=== PATIENT | female | born 1935 | race Caucasian/White ===

== ENCOUNTER 2019-02-19 14:24 | Emergency (ER) | payer OTHER, MEDICARE ==
[~2019-02-19] VITALS: Ht 157.5 cm; Wt 63.5 kg
[2019-02-19] MEDS ORDERED: LISINOPRIL20 MG PO (14:54)
[2019-02-19] MEDS ORDERED: RESTASIS1 DROP OD (14:54)
[2019-02-19] MEDS ORDERED: LEVOTHYROXINE100 MCG PO (14:54)
[2019-02-19] MEDS ORDERED: SIMVASTATIN40 MG PO (14:55)
[2019-02-19] MEDS ORDERED: DIGITEK125 MCG PO (14:55)
[2019-02-19] MEDS ORDERED: TRAVATAN Z5 ML (14:55)
== END 2019-02-19 16:10 | disposition home or self-care (01) ==
LOC: ED 14:24
DX: S67.193A Crushing injury of left middle finger, initial encounter (principal); S67.195A Crushing injury of left ring finger, initial encounter; W23.0XXA Caught, crushed, jammed, or pinched between moving objects, initial encounter; I10 Essential (primary) hypertension; Z85.3 Personal history of malignant neoplasm of breast; E78.5 Hyperlipidemia, unspecified; Z88.8 Allergy status to other drugs, medicaments and biological substances; Z79.899 Other long term (current) drug therapy
CPT/HCPCS: 73130; 99283

== ENCOUNTER → 2020-03-20 | Emergency (ER) | payer MEDICARE, OTHER ==
[~2020-03-20] VITALS: Ht 157.5 cm; Wt 63.5 kg
[~2020-03-20] MED LIST: DIGITEK125 MCG PO; LEVOTHYROXINE100 MCG PO; LISINOPRIL20 MG PO; RESTASIS1 DROP OD; SIMVASTATIN40 MG PO; TRAVATAN Z5 ML
--- OUTSIDE RECORDS SUMMARY | ~2020-03-20 | XMS | Encounter Summary ---
Demographics + + + | Address | [address] | | | [place] [address] | + + + | Home Phone | | + + + | Preferred Language | Unknown | + + + | Marital Status | | + + + | Nondenominational Affiliation | 1073 | + + + | Race | White | + + + | Ethnic Group | Not or | + + + Author + + + | Author | [facility] | | | and [place] | + + + | Organization | [facility] | | | and [place] | + + + | Address | Unknown | + + + | Phone | Unavailable | + + + Support + + +---------+ + | Name | Relationship | Address | Phone | + + +---------+ + | Bhavana Ulloa | ECON | Unknown | | + + +---------+ + Care Team Providers + +------+ + | Care Professor Of Communication Arts Name | Role | Phone | + +------+ + PCP | Unavailable | + +------+ + Encounter Details +--------+ + + + + | Date | Type | Department | Care Team | Description | +--------+ + + + + | 04/15/ | Hospital | [facility] | | | | 1996 - | Encounter | MED CTR CANCER | | | | | | CENTER [facility] | | | | 05/28/ | | [place] | | | | 1996 | | [address] | | | | | | [phone] | | | +--------+ + + + + Social History + +-------+ +--------+------+ | Tobacco Use | Types | Packs/Day | Years | Date | | | | | Used | | + +-------+ +--------+------+ | Never Assessed | | | | | + +-------+ +--------+------+ + + + | Sex Assigned at | Date Recorded | | | | + + + | Not on file | | + + + documented as of this encounter Plan of Treatment Not on filedocumented as of this encounter Visit Diagnoses Not on filedocumented in this encounter"
--- OUTSIDE RECORDS SUMMARY | ~2020-03-20 | XMS | Encounter Summary ---
Demographics + + + | Address | [address] | | | [place] [address] | + + + | Home Phone | | + + + | Preferred Language | Unknown | + + + | Marital Status | | + + + | Pentecostalism Affiliation | 1073 | + + + | Race | White | + + + | Ethnic Group | Not or | + + + Author + + + | Author | [facility] | | | and [place] | + + + | Organization | [facility] | | | and [...] Team Providers + +------+ + | Care Prop Making Supervisor Name | Role | Phone | + +------+ + | Froylan Godinez MD | PCP | | + +------+ + Encounter Details +--------+ + + + + | Date | Type | Department | Care Team | Description | +--------+ + + + + | 05/07/ | Hospital | [facility] | Fred Oden | Back pain | | 2011 - | Encounter | MED CTR XRAY [address] | [address] | | | | | [place] | [address] [place] | | | 05/09/ | | [place] [address] | [address] | | | 2011 | | [phone] | | | +--------+ + + + + Social History + +-------+ +--------+------+ | Tobacco Use | Types | Packs/Day | Years | Date | | | | | Used | | + +-------+ +--------+------+ | Never Smoker | | | | | + +-------+ +--------+------+ + +---+---+---+ | Smokeless Tobacco: | | | | | Never Used | | | | + +---+---+---+ + + +---------+ + | Alcohol Use | Drinks/Week | oz/Week | Comments | + + +---------+ + | Yes | | | Rarely | + + +---------+ + + + + | Sex Assigned at | Date Recorded | | | | + + + | Not on file | | + + + documented as of this encounter Medications at Time of Discharge + + + +---------+--------+ + | Medication | Sig | Dispensed | Refills | Start | End Date | | | | | | Date | | + + + +---------+--------+ + | | Place 1 drop into | | 0 | | | | brimonidine-timolol | the right eye 2 | | | | | | (COMBIGAN) 0.2-0.5% | times daily. | | | | | | ophthalmic solution | | | | | | + + + +---------+--------+ + | Cholecalciferol | Take 2,000 Units by | | 0 | | | | (VITAMIN D3) 2000 | mouth every morning. | | | | | | UNITS CAPS | | | | | | + + + +---------+--------+ + | Cinnamon 500 MG | Take 1,000 mg by | | 0 | | | | CAPS | mouth every morning. | | | | | | | | | | | | + + + +---------+--------+ + | Levothyroxine | Take 100 mcg by | | 0 | | | | Sodium 112 MCG CAPS | mouth every morning. | | | | 0 | + + + +---------+--------+ + | omeprazole | Take 20 mg by mouth | | 0 | | | | (PRILOSEC) 20 mg | every morning | | | | | | capsule | (before breakfast). | | | | | | | | | | | | + + + +---------+--------+ + | potassium chloride | Take 10 mEq by mouth | | 0 | | | | (KLOR-CON 10) 10 | Daily. | | | | 0 | | MEQ CR tablet | | | | | | + + + +---------+--------+ + | simvastatin | Take 40 mg by mouth | | 0 | | | | (ZOCOR) 40 mg tablet | nightly. | | | | | + + + +---------+--------+ + | | Take 1 tablet by | | 0 | | | | triamterene-hydrochl | mouth Daily. | | | | 0 | | orothiazide | | | | | | | (MAXZIDE-25) 37.5-25 | | | | | | | mg per tablet | | | | | | + + + +---------+--------+ + documented as of this encounter Plan of Treatment Not on filedocumented as of this encounter Procedures + +--------+ + + + | Procedure Name | Priori | Date/Time | Associated Diagnosis | Comments | | | ty | | | | + +--------+ + + + | XR LUMBAR SPINE 2 OR | Routin | 05/07/2012 | Back pain | Results for this | | 3 VW | e | 2:11 PM | | procedure are in the | | | | PST | | results section. | + +--------+ + + + documented in this encounter Results XR Lumbar Spine 2 or 3 Vw (05/07/2012 2:11 PM PST) + + | Specimen | + + | | + + + + + | Narrative | Performed At | + + + | [facility] | [facility] | | Department [address] [place] [address] | [facility] | | [ rep [address]] [ rep [facility] | | [facility]] Signed | - IMAGING | | | | | Patient Name: CATHIE SORENSON Physician: | | | : 1935 Age: 76 Sex: F Unit #: [id number] | | | Exam Date: 05/07/12 Location: [facility] | | | Report #: [id number] Page: | | | %(RAD)RES..mtdd.print.filter("pg") of %(RAD) | | | RES..mtdd.print.filter("tpg") | | | | | | Accession Number: [id number] | | | THREE VIEWS LUMBAR SPINE, 05/07/2012 CLINICAL HISTORY: | | | LOW BACK PAIN. COMPARISON: Lumbar MRI 04/19/2012. | | | FINDINGS: Lateral views of the lumbar spine in | | | neutral, flexed and extended positions are provided. The most | | | inferior lumbar-type vertebra is again designated L5. Diffuse | | | osteopenia is suggested. Lumbar vertebral height is maintained, | | | without evident fracture or conclusive spondylolysis. Mild to | | | moderate disk space narrowing is present at L5-S1 and there is | | | prominent vertebral spondylosis at L2- 3. Multilevel facet | | | hypertrophy is present. Mild anterolisthesis at L3-4 persists with | | | active flexion and extension. No other spondylolisthesis is | | | evident. A small, rounded calcific density projecting over the | | | iliac wings is nonspecific and may reflect a calcified node or | | | diverticulum or alternatively, a bone island. There is scattered | | | abdominal aortic calcification. IMPRESSION: 1. | | | MULTILEVEL SPONDYLOSIS AND MILD SPONDYLOLISTHESIS AT L3-4 | | | DESCRIBED. Dictated Date/Time: 05/07/2012 14:11 | | | Transcribed Date/Time: 05/07/2012 15:18 Pharmacy District Manager: | | | <<Signature on File>> | | | Jose Swenson | | | MD Izaiah05/08/12 [id number] <Electronically signed by Jose Bliss MD> | | | Jose Bliss MD 05/07/12 1411 Pharmacy District Manager: | | | [email or web address]/13/12 2908 [address] Leach | | | | | + + + + + + + + | Performing | Address | City/State/Zipcode | Phone Number | | Organization | | | | + + + + + | [facility] [address] | [address] | [place] | [phone] | | [facility] | | [address] | | | - IMAGING | | | | + + + + + documented in this encounter Visit Diagnoses + + | Diagnosis | + + | Back pain Backache, unspecified | + + documented in this encounter
--- OUTSIDE RECORDS SUMMARY | ~2020-03-20 | XMS | Encounter Summary ---
Demographics + + + | Address | [address] | | | [place] [address] | + + + | Home Phone | | + + + | Preferred Language | Unknown | + + + | Marital Status | | + + + | Orthodoxy Affiliation | 1073 | + + + | Race | White | + + + | Ethnic Group | Not or | + + + Author + + + | Author | [facility] | | | and [place] | + + + | Organization | [facility] | | | and [place] | + + + | Address | Unknown | + + + | Phone | Unavailable | + + + Support + + +---------+ + | Name | Relationship | Address | Phone | + + +---------+ + | Bhavana Good Ulloa | ECON | Unknown | | + + +---------+ + Care Team Providers + +------+ + | Care Fructose Loader Name | Role | Phone | + +------+ + | Froylan Godinez MD | PCP | | + +------+ + Encounter Details +--------+ + + + + | Date | Type | Department | Care Team | Description | +--------+ + + + + | 12/29/ | Hospital | [facility] | Scott Freeman MD | Back pain, | | 2015 | Encounter | MED CTR XRAY [address] | [address] | unspecified location | | | | [address] | [place] [address] | | | | | [place] [address] | [phone] | | | | | [phone] | | | +--------+ + + + [...] + + +---------+ + | Yes | 0 Standard drinks | 0.0 | Rarely | | | or equivalent | | | + + +---------+ + + + + | Sex Assigned at | Date Recorded | | | | + + + | Not on file | | + + + documented as of this encounter Medications at Time of Discharge + + + +---------+ + + | Medication | Sig | Dispensed | Refills | Start | End Date | | | | | | Date | | + + + +---------+ + + | aspirin 325 mg | Take 325 mg by mouth | | 0 | | | | tablet | Daily. | | | | | + + + +---------+ + + | | Place 1 drop into | | 0 | | | | brimonidine-timolol | the right eye 2 | | | | | | (COMBIGAN) 0.2-0.5% | times daily. | | | | | | ophthalmic solution | | | | | | + + + +---------+ + + | Calcium | Take 1 tablet by | | 0 | | | | Carbonate-Vitamin D | mouth Once a week. | | | | 0 | | (CALTRATE 600+D PO) | | | | | | + + + +---------+ + + | Cholecalciferol | Take 2,000 Units by | | 0 | | | | (VITAMIN D3) 2000 | mouth every morning. | | | | | | UNITS CAPS | | | | | | + + + +---------+ + + | Cinnamon 500 MG | Take 1,000 mg by | | 0 | | | | CAPS | mouth every morning. | | | | | | | | | | | | + + + +---------+ + + | digoxin (LANOXIN) | Take 125 mcg by | | 0 | | | | 125 mcg tablet | mouth Daily. | | | | | + + + +---------+ + + | | Take 1 tablet by | | 0 | | | | HYDROcodone-acetamin | mouth every 6 hours | | | | 0 | | ophen (NORCO) 5-325 | as needed for Pain. | | | | | | mg per tablet | | | | | | + + + +---------+ + + | Levothyroxine | Take 100 mcg by | | 0 | | | | Sodium 112 MCG CAPS | mouth every morning. | | | | 0 | + + + +---------+ + + | omeprazole | Take 20 mg by mouth | | 0 | | | | (PRILOSEC) 20 mg | every morning | | | | | | capsule | (before breakfast). | | | | | | | | | | | | + + + +---------+ + + | oxyCODONE | Take 0.5-1 tablets | 15 | 0 | 11/25/19 | | | (ROXICODONE) 5 mg | by mouth every 4 | tablet | | 15 | 0 | | tablet | hours as needed for | | | | | | | Pain. | | | | | + + + +---------+ + + | potassium chloride | Take 10 mEq by mouth | | 0 | | | | (KLOR-CON 10) 10 | Daily. | | | | 0 | | MEQ CR tablet | | | | | | + + + +---------+ + + | simvastatin | Take 40 mg by mouth | | 0 | | | | (ZOCOR) 40 mg tablet | nightly. | | | | | + + + +---------+ + + | travoprost | Place 1 drop into | | 0 | | | | (TRAVATAN) 0.004% | the right eye | | | | | | ophthalmic solution | nightly. | | | | | + + + +---------+ + + | | Take 1 tablet by | | 0 | | | | triamterene-hydrochl | mouth Daily. | | | | 0 | | orothiazide | | | | | | | (MAXZIDE-25) 37.5-25 | | | | | | | mg per tablet | | | | | | + + + +---------+ + + documented as of this encounter Plan of Treatment Not on filedocumented as of this encounter Procedures + +--------+ + + + | Procedure Name | Priori | Date/Time | Associated Diagnosis | Comments | | | ty | | | | + +--------+ + + + | XR LUMBAR SPINE 4 + | Routin | 12/29/2014 | Back pain, | Results for this | | VW | e | 9:28 AM | unspecified location | procedure are in the | | | | PDT | | results section. | + +--------+ + + + documented in this encounter Results XR Lumbar Spine 4 + Vw (12/29/2014 9:28 AM PDT) + + | Specimen | + + | | + + + + + | Narrative | Performed At | + + + | XR LUMBAR SPINE 4 + VW. 12/29/2014 9:27 AM HISTORY: Back pain . | [facility] | | COMPARISON: MRI lumbar spine 10/07/2014 and x-ray lumbar spine | [facility] | | 09/23/2014 FINDINGS: Five lumbar type vertebral bodies. Mild | MEDICAL [facility]ENTER | | broad-based dextroconvex curvature of the lumbar spine, with slight | - IMAGING | | rotatory component. On the upright neutral view, there is | | | anterolisthesis of L3 on L4 that does not substantially change on | | | flexion or extension views. There is diffuse degenerative disc | | | disease, with severe loss of disc height at L5-S1, which appears to | | | expand somewhat on the extension view. Moderate decrease in disc | | | height at L3-4 and L2-3, with posterior loss of disc height at L1-2. | | | Vertebral body heights are maintained. Facet degenerative | | | hypertrophy, greater in the lower lumbar spine. Calcification of the | | | aorta and branching vessels. IMPRESSION - Diffuse degenerative | | | disc disease and spondylotic change. Anterolisthesis of L3 on L4. | | | Dictated and Signed by: Jonathan Gillis MD Electronically | | | signed: 12/29/2014 12:02 PM | | + + + + + | Procedure Note | + + | Je, Rad Results In - 12/29/2014 12:05 PM PDT XR LUMBAR SPINE 4 + VW. 12/29/2014 9:27 | | AMHISTORY: Back pain . COMPARISON: MRI lumbar spine 10/07/2014 and x-ray lumbar spine | | 09/23/2014FINDINGS:Five lumbar type vertebral bodies. Mild broad-based dextroconvex | | curvature ofthe lumbar spine, with slight rotatory component.On the upright neutral | | view, there is anterolisthesis of L3 on L4 that does notsubstantially change on flexion | | or extension views.There is diffuse degenerative disc disease, with severe loss of disc | | height atL5-S1, which appears to expand somewhat on the extension view. | | Moderatedecrease in disc height at L3-4 and L2-3, with posterior loss of disc height | | atL1-2. Vertebral body heights are maintained.Facet degenerative hypertrophy, greater | | in the lower lumbar spine.Calcification of the aorta and branching vessels.IMPRESSION | | -Diffuse degenerative disc disease and spondylotic change. Anterolisthesis of L3on | | L4.Dictated and Signed by: Jonathan Gillis MD Electronically signed: 12/29/2014 12:02 PM | |L5-S1, which appears to expand somewhat on the extension view. Moderate | |decrease in disc height at L3-4 and L2-3, with posterior loss of disc height at | |L1-2. Vertebral body heights are maintained. | |Facet degenerative hypertrophy, greater in the lower lumbar spine. | |Calcification of the aorta and branching vessels. | | | | | |IMPRESSION - | |Diffuse degenerative disc disease and spondylotic change. Anterolisthesis of L3 | |on L4. | | | |Dictated and Signed by: Jonathan Gillis MD | | Electronically signed: 12/29/2014 12:02 PM | + + + + + + + | Performing | Address | City/State/[facility] | Phone Number | | Organization | | | | + + + + + | [address] | [address] | [place] | [phone] | | [facility] | | [address] | | | - IMAGING | | | | + + + + + documented in this encounter Visit Diagnoses + + | Diagnosis | + + | Back pain, unspecified location | + + documented in this encounter"
--- OUTSIDE RECORDS SUMMARY | ~2020-03-20 | XMS | Encounter Summary ---
Demographics + + + | Address | [address] | | | [place] [address] | + + + | Home Phone | | + + + | Preferred Language | Unknown | + + + | Marital Status | | + + + | Taoist Affiliation | 1073 | + + + | Race | White | + + + | Ethnic Group | Not or | + + + Author + + + | Author | [facility] | | | and [place] | + + + | Organization | [facility] | | | [...] Team Providers + +------+ + | Care Transportation Solutions Manager Name | Role | Phone | + +------+ + PCP | Unavailable | + +------+ + Encounter Details +--------+ + + + + | Date | Type | Department | Care Team | Description | +--------+ + + + + | 04/22/ | Hospital | [facility] | | | | 2001 - | Encounter | MED CTR CANCER | | | | | | CENTER [facility] | | | | 06/20/ | | [place] | | | | 2001 | | [address] | | | | | | [phone] | | | +--------+ + + + [...]
--- OUTSIDE RECORDS SUMMARY | ~2020-03-20 | XMS | Encounter Summary ---
Demographics + + + | Address | [address] | | | [place] [address] | + + + | Home Phone | | + + + | Preferred Language | Unknown | + + + | Marital Status | | + + + | Rastafarian Affiliation | 1073 | + + + | Race | White | + + + | Ethnic Group | Not or | + + + Author + + + | Author | [facility] | | | and [place] | + + + | Organization | [facility] | | | [...] Team Providers + +------+ + | Care Transformer Mechanic Name | Role | Phone | + +------+ + PCP | Unavailable | + +------+ + Encounter Details +--------+ + + + + | Date | Type | Department | Care Team | Description | +--------+ + + + + | 10/14/ | Hospital | [facility] | | | | 1997 - | Encounter | MED CTR CANCER | | | | | | CENTER [facility] | | | | 06/24/ | | [place] | | | | 1997 | | [address] | | | | | | [phone] | | | +--------+ + + + [...]
--- OUTSIDE RECORDS SUMMARY | ~2020-03-20 | XMS | Encounter Summary ---
Demographics + + + | Address | [address] | | | [place] [address] | + + + | Home Phone | | + + + | Preferred Language | Unknown | + + + | Marital Status | | + + + | Temple Affiliation | 1073 | + + + | Race | White | + + + | Ethnic Group | Not or | + + + Author + + + | Author | [facility] | | | and [place] | + + + | Organization | [facility] | | | and [place] | + + + | Address | Unknown | + + + | Phone | Unavailable | + + + Support + + +---------+ + | Name | Relationship | Address | Phone | + + +---------+ + | Bhavana Good Artemio | ECON | Unknown | | + + +---------+ + Care Team Providers + +------+ + | Care Brim Greaser Operator Name | Role | Phone | + +------+ + | Froylan Godinez MD | PCP | | + +------+ + Encounter Details +--------+ + + + + | Date | Type | Department | Care Team | Description | +--------+ + + + + | 01/15/ | Imaging | [facility] | Provider, | | | 2020 | Exam | MED CTR EXTERNAL | [address] | | | | | IMAGING [address] | [address] | | | | | [address] [place] | [place] [address] | | | | | [place] [address] | | | | | | [phone] | | | +--------+ + + + [...] | + +--------+ + + + | DEXA BONE DENSITY | Routin | 04/25/2018 | | Results for this | | STUDY JASON LONG FX | e | 12:00 AM | | procedure are in the | | ASSESSMENT | | PDT | | results section. | + +--------+ + + + documented in this encounter Results DEXA Bone Density wo Vert Fx Assmt (04/25/2018 12:00 AM PDT) + + | Specimen | + + | | + + + + + | Narrative | Performed At | + + + | External films for comparison only | [facility] | | | | | No results will be in the chart. | | + + + + +---------+ + + | Performing | Address | City/State/Zipcode | Phone Number | | Organization | | | | + +---------+ + + | [facility] | | | | + +---------+ + + documented in this encounter Visit Diagnoses Not on filedocumented in this encounter"
--- OUTSIDE RECORDS SUMMARY | ~2020-03-20 | XMS | Encounter Summary ---
Demographics + + + | Address | [address] | | | [place] [address] | + + + | Home Phone | | + + + | Preferred Language | Unknown | + + + | Marital Status | | + + + | Uatsdin Affiliation | 1073 | + + + | Race | White | + + + | Ethnic Group | Not or | + + + Author + + + | Author | [facility] | | | and [place] | + + + | Organization | [facility] | | | [...] Team Providers + +------+ + | Care Buffet Attendant Name | Role | Phone | + +------+ + PCP | Unavailable | + +------+ + Encounter Details +--------+ + + + + | Date | Type | Department | Care Team | Description | +--------+ + + + + | 06/25/ | Hospital | [facility] | | | | 1996 - | Encounter | MED CTR CANCER | | | | | | CENTER [facility] | | | | 12/15/ | | [place] | | | | 1996 | | [address] | | | | | | [phone] | | | +--------+ + + + [...]
--- OUTSIDE RECORDS SUMMARY | ~2020-03-20 | XMS | Encounter Summary ---
Demographics + + + | Address | [address] | | | [place] [address] | + + + | Home Phone | | + + + | Preferred Language | Unknown | + + + | Marital Status | | + + + | Hoahaoism Affiliation | [id number] | + + + | Race | White | + + + | Ethnic Group | Not or | + + + Author + + + | Author | [facility] | | | and [place] | + + + | Organization | [facility] | | | [...] Team Providers + +------+ + | Care Blood Bank Business Manager Name | Role | Phone | + +------+ + | Danna Colunga | PCP | | | PA | | | + +------+ + Reason for Visit Service/Procedure (Routine) +--------+--------+ + + + + | Status | Reason | Specialty | Diagnoses / | Referred By | Referred To | | | | | Procedures | Contact | Contact | +--------+--------+ + + + + | Closed | | Radiology | Diagnoses | | [facility] | | | | | Lumbar | [place], | [address] | | | | | radiculopath | Darrel Moon MD | [place], | | | | | y | [address] | [place] | | | | | Procedures | [address] [place] | [address] | | | | | [place] INJECT | [place] | Phone: | | | | | ANES/STEROID | [id number] | [phone] | | | | | FORAMEN | Phone: | Fax: | | | | | LUMBAR/SACRA | [phone] | [phone] | | | | | L W IMG | Fax: | | | | | | GUIDE ,1 | [phone] | | | | | | LEVEL SC | | | | | | | INJECT | | | | | | | ANES/STEROID | | | | | | | FORAMEN | | | | | | | LUMBAR/SACRA | | | | | | | L W IMG | | | | | | | GUIDE ,EA | | | | | | | ADD LEVEL | | | | | | | SC | | | | | | | DEXAMETHASON | | | | | | | E SODIUM | | | | | | | PHOS, 1 MG | | | | | | | LEFT L5/S1 | | | | | | | and left S1 | | | | | | | TFESI | | | +--------+--------+ + + + + Encounter Details +--------+ + + + + | Date | Type | Department | Care Team | Description | +--------+ + + + + | 02/19/ | Hospital | [facility] | Jess Marie | Lumbar radiculopathy | | 2020 | Encounter | MED CTR XRAY [address] | [place] Carrillo [address] | | | | | [address] | [facility] | | | | | [place] [address] | [address] [place] | | | | | [phone] | [id number] | | | | | | | | | | | | Digital DeveloperMalgorzata | | | | | | [place] | | +--------+ + + + + [...] Comments | + + +---------+ + | Not Currently | 0 Standard drinks | 0.0 | Rarely | | | or equivalent | | | + + +---------+ + + + + | Sex Assigned at | Date Recorded | | | | + + + | Not on file | | + + + documented as of this encounter Last Filed Vital Signs + +---------+ + + | Vital Sign | Reading | Time Taken | Comments | + +---------+ + + | Blood Pressure | 176/63 | 02/20/2020 2:00 PM | | | | | PDT | | + +---------+ + + | Pulse | 91 | 02/20/2020 2:00 PM | | | | | PDT | | + +---------+ + + | Temperature | - | - | | + +---------+ + + | Respiratory Rate | - | - | | + +---------+ + + | Oxygen Saturation | - | - | | + +---------+ + + | Inhaled Oxygen | - | - | | | Concentration | | | | + +---------+ + + | Weight | - | - | | + +---------+ + + | Height | - | - | | + +---------+ + + | Body Mass Index | - | - | | + +---------+ + + documented in this encounter Medications at Time of Discharge [...] + + + +---------+ + + | gabapentin | Take 200 mg by mouth | | 0 | 01/14/20 | | | (NEURONTIN) 100 mg | nightly . | | | 20 | | | capsule | | | | | | + + + +---------+ + + | levothyroxine | Take 100 mcg by | | 0 | 12/25/19 | | | (SYNTHROID) 100 mcg | mouth Daily. | | | 20 | | | tablet | | | | | | + + + +---------+ + + | lisinopril | Take 20 mg by mouth | | 0 | | | | (PRINIVIL, ZESTRIL) | Daily. | | | | | | 20 mg tablet | | | | | | + + + +---------+ + + | omeprazole | Take 20 mg by mouth | | 0 | | | | (PRILOSEC) 20 mg | every morning | | | | | | capsule | (before breakfast). | | | | | | | | | | | | + + + +---------+ + + | RESTASIS 0.05 % | instill 1 drop into | | 0 | 01/23/20 | | | ophthalmic emulsion | both eyes twice a | | | 20 | | | | day | | | | | + + [...] | + +--------+ + + + | FL EPIDURAL STEROID | Routin | 02/20/2020 | Lumbar | Results for this | | INJECTION LUMBAR | e | 2:03 PM | radiculopathy | procedure are in the | | TRANSFORAMINAL | | PDT | | results section. | + +--------+ + + + documented in this encounter Results FL MAURICIO Lumbar Sacral Transforaminal (02/20/2020 2:03 PM PDT) + + | Specimen | + + | | + + + + -+ | Narrative | Performed At | + + -+ | 02/20/2020 | [facility] | | Transforaminal Epidural Steroid Injections Diagnosis: Lumbar | | | radiculopathy ICD-10 Code M54.16 Cathie Sorenson presents to the | | | fluoroscopy suite for fluoroscopically-guided left L5-S1 and left S1 | | | transforaminal epidural steroid injections as part of conservative | | | management for chronic pain with lumbar radiculopathy and degenerative | | | disc disease. After informed consent was obtained, the patient lay in | | | the prone position on the fluoroscopy table. The areas were | | | identified under fluoroscopic guidance. The areas were prepped and | | | draped in sterile fashion. A 25-gauge, 1.5-inch needle was inserted | | | into each region and approximately 3 mL of buffered 1% lidocaine was | | | infused. Then, a 22-gauge spinal needle was inserted into the | | | posterior superior transforaminal space at each level and advanced | | | into the epidural space under fluoroscopic guidance. Confirmation into | | | the epidural space was obtained with infusion of approximately 1 mL | | | of Omnipaque contrast which showed epidural flow as well as nerve | | | sheath flow. Then, a combination of 2 mL of 1% lidocaine and 1.5 mL of | | | 10 mg/mL dexamethasone was infused, divided between the two levels. | | | The patient tolerated the procedure well without complications. Pre- | | | and post-procedure blood pressures were stable. The patient was given | | | verbal as well as written follow-up instructions. Prior to the start | | | of the procedure, the following were performed and/or verified, | | | including correct patient identity, correct site/side marked and | | | visible, agreement on the procedure to be done, correct patient | | | positioning and an accurate procedure consent form. Any safety | | | precautions based on clinical history and/or medication use have been | | | addressed. I personally performed the procedure above. Estimated blood | | | loss: MinimalComplications: NoneFindings: As expectedAnesthesia: | | | Local 1% Lidocaine | | |visible, agreement on the procedure to be done, correct patient | | |positioning and an accurate procedure consent form. Any safety precautions | | |based on clinical history and/or medication use have been addressed. I | | |personally performed the procedure above. | | | | | |Estimated blood loss: Minimal | | |Complications: None | | |Findings: As expected | | |Anesthesia: Local 1% Lidocaine | | + + -+ + +---------+ + + | Performing | Address | City/State/Zipcode | Phone Number | | Organization | | | | + +---------+ + + | [facility] | | | | + +---------+ + + documented in this encounter Visit Diagnoses + + | Diagnosis | + + | Lumbar radiculopathy Thoracic or lumbosacral neuritis or radiculitis, unspecified | + + documented in this encounter Administered Medications + +--------+ +-------+------+------+ | Medication Order | MAR | Action | Dose | Rate | Site | | | Action | Date | | | | + +--------+ +-------+------+------+ | dexamethasone (PF) 10 mg/mL | Given | 02/20/20 | 15 mg | | | | injection 15 mg 15 mg, Other, | | 20 2:24 | | | | | ONCE, 02/20/20 at 1400, For 1 | | PM PDT | | | | | dose, EPIDURAL When ordered IV | | | | | | | push: Dilute to 10-20 mL with NS | | | | | | | and give slowly over 1-2 | | | | | | | minutes., | | | | | | + +--------+ +-------+------+------+ +---+---+ | | | +---+---+ + +-------+ +-------+---+---+ | iohexol (OMNIPAQUE 300) 300 | Given | 02/20/20 | 3 mLs | | | | mg/mL injection 3 mL 3 mL, | | 20 2:21 | | | | | EPIDURAL, ONCE, Sun02/20/20 at | | PM PDT | | | | | 1400, For 1 dose | | | | | | + +-------+ +-------+---+---+ +---+---+ | | | +---+---+ + +-------+ +-------+---+---+ | lidocaine (PF) 1% injection 2 | Given | 02/20/20 | 2 mLs | | | | mL 2 mL, Other, ONCE, Fri | | 20 2:25 | | | | | 02/20/20 at 1400, For 1 dose | | PM PDT | | | | + +-------+ +-------+---+---+ +---+---+ | | | +---+---+ + +-------+ +-------+---+---+ | lidocaine buffered 0.9% | Given | 02/20/20 | 6 mLs | | | | injection 6 mL 6 mL, | | 20 2:18 | | | | | Infiltration, ONCE, 02/20/20 | | PM PDT | | | | | at 1400, For 1 dose | | | | | | + +-------+ +-------+---+---+ +---+---+ | | | +---+---+ documented in this encounter"
--- OUTSIDE RECORDS SUMMARY | ~2020-03-20 | XMS | Encounter Summary ---
Demographics + + + | Address | [address] | | | [place] [address] | + + + | Home Phone | | + + + | Preferred Language | Unknown | + + + | Marital Status | | + + + | Synagogue Affiliation | 1073 | + + + | Race | White | + + + | Ethnic Group | Not or | + + + Author + + + | Author | [facility] | | | and [place] | + + + | Organization | [facility] | | | [...] Team Providers + +------+ + | Care Plate Roller Name | Role | Phone | + +------+ + PCP | Unavailable | + +------+ + Encounter Details +--------+ + + + + | Date | Type | Department | Care Team | Description | +--------+ + + + + | 10/16/ | Hospital | [facility] | | | | 2000 - | Encounter | [facility] | | | | | | [facility] [place] [place] | | | | 03/29/ | | [place] | | | | 2000 | | [address] | | | | | | [phone] | | | +--------+ + + + [...]
--- OUTSIDE RECORDS SUMMARY | ~2020-03-20 | XMS | Encounter Summary ---
Demographics + + + | Address | [address] | | | [place] [address] | + + + | Home Phone | | + + + | Preferred Language | Unknown | + + + | Marital Status | | + + + | Confucianist Affiliation | 1073 | + + + | Race | White | + + + | Ethnic Group | Not or | + + + Author + + + | Author | [facility] | | | and [place] | + + + | Organization | [facility] | | | [...] Team Providers + +------+ + | Care Group Exercise Class Instructor Name | Role | Phone | + +------+ + | Froylan Godinez MD | PCP | | + +------+ + Reason for Referral Evaluate & Treat (Urgent) +--------+ + + + + + | Status | Reason | Specialty | Diagnoses / | Referred By | Referred To | | | | | Procedures | Contact | Contact | +--------+ + + + + + | Closed | Specialty | Physical | Diagnoses | Tylor Odennberg, | | | Services | Medicine and | Lumbosacral | Fred | Darrel Moon MD | | | Required | Rehabilitatio | | LILIANA Pino | [address] | | | | n | radiculopath | [address] [place] | | | | | y at [address] | [address]VE | [place], [place] | | | | | Spinal | [place] | [address] Phone: | | | | | stenosis of | [address] | [phone] | | | | | lumbar | Phone: | Fax: | | | | | region | [phone] | [phone] | | | | | Spondylolysi | Fax: | | | | | | s of lumbar | [phone] | | | | | | region | | | +--------+ + + + + + Evaluate & Treat (Routine) +--------+ + + + + + | Status | Reason | Specialty | Diagnoses / | Referred By | Referred To | | | | | Procedures | Contact | Contact | +--------+ + + + + + | Closed | Specialty | Physical | Diagnoses | Akshat, | | | | Services | Therapy | Lumbosacral | Fred | | | | Required | | | LIL[place]NA Pino | | | | | | radiculopath | [address] | | | | | | y at [address] | [address]VE | | | | | | Spinal | [place] | | | | | | stenosis of | [address] | | | | | | lumbar | Phone: | | | | | | region | [phone] | | | | | | Spondylolysi | Fax: | | | | | | s of lumbar | [phone] | | | | | | region | | | +--------+ + + + + + + + | Scheduling Instructions | + + | RX: PHYSICAL THERAPY: EVALUATE AND TREAT; CORE CONDITIONING AND LUMBAR MODALITIES; 3X | | WEEK FOR 6WEEKS; TEACH HOME CORE CONDITIONING PROGRAM; SEND REPORT UPON COMPLETION | + + Diagnostic/Screening (Routine) +--------+ + + + + + | Status | Reason | Specialty | Diagnoses / | Referred By | Referred To | | | | | Procedures | Contact | Contact | +--------+ + + + + + | Closed | Specialty | Radiology | Diagnoses | [place], | | | | Services | | | Fred | | | | Required | | Radiculopath | LIL[place]NA Pino | | | | | | y, cervical | [address] | | | | | | region | AVE | | | | | | Procedures | [place] | | | | | | MRI Cervical | [address] | | | | | | Spine w wo | Phone: | | | | | | Contrast | [phone] | | | | | | | Fax: | | | | | | | [phone] | | +--------+ + + + + + Reason for Visit + + + | Reason | Comments | + + + | Back Pain | | + + + | Other | Leg numbness down both legs, right buttocks | + + + Evaluate & Treat (Routine) +--------+--------+ + + + + | Status | Reason | Specialty | Diagnoses / | Referred By | Referred To | | | | | Procedures | Contact | Contact | +--------+--------+ + + + + | Closed | | Neurosurgery | Diagnoses | Herbert, | Scott Freeman | | | | | Thoracic or | Froylan Zendejas MD [address] | | | | | lumbosacral | MD Sagar [address] | | | | | neuritis or | [address] | [place], [place] | | | | | | [place] | [address] | | | | | radiculitis, | [address] | Phone: | | | | | unspecified | [place], | [phone] | | | | | Lumbago | [place] | Fax: | | | | | Spinal | [address] | [phone] | | | | | stenosis, | Phone: | | | | | | lumbar | [phone] | | | | | | region, | Fax: | | | | | | without | [phone] | | | | | | neurogenic | | | | | | | claudication | | | | | | | Procedures | | | | | | | ME | | | | | | | OFFICE/OUTPT | | | | | | | | | | | | | | VISIT,EST,LE | | | | | | | VL IV | | | +--------+--------+ + + + + Encounter Details +--------+---------+ + + + | Date | Type | Department | Care Team | Description | +--------+---------+ + + + | 05/07/ | Office | [facility] [place] | Fred Oden | Lumbosacral | | 2011 | Visit | NEUROSURGERY [address] | [address] [address] | radiculopathy at [address] | | | | [address] [place], [place] | (Primary Dx); | | | | [place] | [address] | Radiculopathy, | | | | [address] | | cervical region; | | | | [phone] | | Spinal stenosis of | | | | | | lumbar region; | | | | | | Spondylolysis of | | | | | | lumbar region | +--------+---------+ + + + Social History + +-------+ [...] this encounter Last Filed Vital Signs + + + + + | Vital Sign | Reading | Time Taken | Comments | + + + + + | Blood Pressure | 106/71 | 05/07/2012 2:25 PM | | | | | PST | | + + + + + | Pulse | 88 | 05/07/2012 2:25 PM | | | | | PST | | + + + + + | Temperature | - | - | | + + + + + | Respiratory Rate | 16 | 05/07/2012 2:25 PM | | | | | PST | | + + + + + | Oxygen Saturation | - | - | | + + + + + | Inhaled Oxygen | - | - | | | Concentration | | | | + + + + + | Weight | 78 kg (172 lb) | 05/07/2012 2:25 PM | | | | | PST | | + + + + + | Height | 159 cm (5' 2.6") | 05/07/2012 2:25 PM | | | | | PST | | + + + + + | Body Mass Index | 30.86 | 05/07/2012 2:25 PM | | | | | PST | | + + + + + documented in this encounter Patient Instructions Patient Instructions rFed Oden PA-C - 05/07/2012 3:27 PM PSTWe have discussed Physical therapy and steroid injections. I would like to see you in 8 weeks for a follow up . Call if you are doing worse or have progressive symptoms documented in this encounter H&P Notes Fred Oden PA-C - 05/07/2012 3:36 PM PSTFormatting of this note might be differ ent from the original. ALBER Donaldson [address] [place] [address], [address] [place] [address] FAX: NEUROSURGERY HISTORY AND PHYSICAL EXAMINATION CHIEF COMPLAINT: Chief Complaint Patient presents with Back Pain Other Leg numbness down both legs, right buttocks HISTORY OF PRESENT ILLNESS: The patient is a 76 y.o. female with the complaint of back shira n. She was sent for neurosurgical consultation regarding her back pain by Dr. Sagar Godinez. Mrs. Sorenson has had back problems for a long time with radicular symptoms on the right side i ntermittently. Generally though she has altered her activity and has done well without any specific therapy or evaluations in this regard. She is also had ongoing problems with low b ack pain although very tolerable and fairly easily managed. Unfortunately earlier this year in October she slipped and fell in a parking lot at a gas station and injure herself and has si gnificant back discomfort. She went to a chiropractor and had some adjustments and did well with that for quite some time. In November she took a long bus ride and had a recurrence of he r discomfort which was made much worse with prolonged sitting and any prolonged walking. Wh en she returned home she went back to her chiropractor and had some adjustments and did fair ly well again for several weeks. Unfortunately 2 weeks ago she began having increasing symp toms and they are worse than they have been in the recent past. She describes her symptoms as being bilaterally starting in her lower back radiating to the lateral aspect of her legs bilaterally down to her ankles and then crossing over to the med ial aspect of her foot again both of these are bilateral symptoms. She states the discomfor t is slightly worse on the left and she has the sensation of increased lack of feeling on th e left side as well. This discomfort has significant limitations in her daily living activi ties she is unable to do much around the house. Her position of comfort is laying in bed. Her recliner is also fairly helpful for her worst position is walking and standing for any l ength of time we'll also worsen her symptoms. Bending backwards will help her symptoms to a degree if she doesn't go too far. She has not had any bowel or bladder dysfunction she has not noticed any particular weakness in her lower extremities although she admits that she h as had some weakness of her right arm in the deltoid region. She feels like she is otherwise fairly healthy without any significant medical problems. S he has not tried physical therapy or injections. She has used some pain medication which di d not seem to work much better than the aspirin she was taking for her discomfort. PAST MEDICAL HISTORY: Past Medical History Diagnosis Date High blood pressure High cholesterol Acid reflux Arthritis Breast cyst PAST SURGICAL HISTORY: Past Surgical History Procedure Date Ovary surgery December 1965 2/3 of each ovary Breast lump removal 03/1996 and 04/2001 Left Side both times Thyroid surgery 10/1997 Removed Cervical polyp removal 04/2002 Laparoscopy 06/2002 Polyp removal Colonoscopy 01/2006 1 cancer, 1 cell, 2 clear CURRENT MEDICATIONS: No current outpatient prescriptions on file prior to visit. ALLERGIES: Allergies Allergen Reactions Food Other (See Comments) Artifical Sweetner Splenda, stinging mouth, slufffing of the mouth. Diet Drinks SOCIAL HISTORY: The patient reports that she has never smoked. She has never used smokeless tobacco. She r eports that she drinks alcohol. She reports that she does not use illicit drugs. FAMILY HISTORY: Family History Problem Relation Age of Onset Stroke Mother Cancer Maternal Aunt Cancer Maternal Grandmother Cancer Maternal Grandfather REVIEW OF SYSTEMS: GENERALLY: No fever, no night sweats, no anemia, no fatigue, no recent profound weight ch anges. EYES: No eye problems, no use of corrective lenses, no eye injury, no double vision, no bl indness. EARS, NOSE, AND THROAT: No changes in taste or smell, no hearing difficulty, no ringing in the ears, no ear drainage, no dizziness, no voice changes, no difficulty swallowing, no sig nificant snoring, no sleep apnea, no sinus problems, no major dental work. NEUROLOGICALLY: Please see the review of systems discussed above in the history of present illness. PSYCHIATRIC: No depression, no sleep disorders, no anxiety, no bipolar disorder, no psycho tic episodes. CARDIOVASCULAR: No heart attacks, no heart murmur, no heart fluttering, no chest pain, no ankle swelling. LUNG DISEASE: No shortness of breath, no cough, no tuberculosis, no bloody cough, no asth ma, no emphysema/COPD. GASTROINTESTINAL: No bowel disease, no nausea or vomiting, no rectal bleeding, no constipa tion, no stool incontinence, no liver disease, no gallbladder disease, no abdominal pain, no ulcers. KIDNEY DISEASE: No urinary frequency, no painful or difficult urination, no incontinence. ENDOCRINE: No diabetes, no thyroid disease, no osteopenia or osteoporosis, no breast drain age. SKIN: No breast lumps, no skin changes, no rashes, no itches. HEMATOLOGIC/LYMPHATIC: No enlarged lymph nodes, no easy or unusual bleeding, no personal h istory of cancer. RHEUMATOLOGIC: No joint arthritis, no rheumatoid arthritis. PHYSICAL EXAMINATION: Blood pressure 106/71, pulse 88, resp. rate 16, height 1.59 m (5' 2.6"), weight 78.019 kg ( 172 lb). Body mass index is 30.86 kg/(m^2). GENERAL: Cathie Sorenson is in no acute distress with unlabored respirations. The patient d oes not appear uncomfortable throughout the exam today. HEENT: HEAD/FACE: EYES: EARS: NASOPHARNYX: OROPHARNYX: Normocephalic and atraumatic. There are no areas of recent trauma. Normal sclerae without icterus. No drainage or tenderness. Clear without drainage. Clear without erythema. NECK (ANTERIOR): Supple and without palpable masses. CHEST: Clear to ausculation without crackles or wheeze. HEART: Regular rate and rhythm without murmurs. ABDOMEN: Soft, non-tender, non-distended, and without palpable masses. The patient is obe se. SPINE: There is no tenderness in the midline of the cervical or thoracic spine. There is n o major palpable deformity of the spine. The lumbar spine shows there is tenderness in the midline of the L5 levels. To palpation, there is signficant left myofascial tenderness. EXTREMITIES: No cyanosis, clubbing, or edema. Distal pulses are palpable. NEUROLOGICAL EXAM: MENTAL STATUS: The patient is awake, alert, and oriented. She follows simple and complex commands. She speech is fluent, her comprehends speech well, and her repeats well. She has no apparent deficits with short or group home memory. CRANIAL NERVES: II: Acuity is intact. Whitley are full to confrontation. III, IV, : The pupils are reactive. Extraocular movements are intact. No ptosis is note d. V: Facial sensation is intact and symmetric. VII: Facial movements are symmetric. VIII: Hearing is intact bilaterally. IX, X: The uvula and palate move appropriately. XI: Shrug is equal bilaterally. XII: Tongue protrusion is midline. MOTOR EXAM: (5 IS NORMAL) * Indicates pain limited MUSCLE/ MOVEMENT: RIGHT LEFT Deltoids 5 5 Biceps 5 5 Triceps 5 5 Wrist Flexion 5 5 Wrist Extension 5 5 Median Intrinsics 5 5 Ulnar Intrinsics 5 5 Director Of Development Strength 5 5 Hip Flexion 5 5 Hip Extension 5 5 Knee Flexion 5 5 Knee Extension 5 5 Dorsiflexion 5 4 Extensor Hallicus Longus 5 4 Plantarflexion 5 5 SENSORY EXAM: Sensory exam shows no diminished sensation to light touch or pain throughout the upper and lower extremities. REFLEXES: (2 OR 2+ IS NORMAL) REFLEX: RIGHT LEFT BICEPS 1 1 BRACHIORADIALIS 1 1 TRICEPS 1 1 PATELLAR 3 2+ ACHILLES 1 1 UDMAS'S ABSENT ABSENT PLANTAR DOWNGOING DOWNGOING GAIT: Gait is steady but stiff walking secondary to back discomfort. Heel and toe walking are in tact but her balance is very poor although the strength is there. Straight extensor halluci s longus PERIPHERAL NERVE/MISC: Tinel is negative at the wrists and elbows bilaterally. Phalen is negative. Straight leg raise is negative bilaterally. Dannie's test of the hips is negative bilaterally. RADIOGRAPHIC REVIEW: MRI of her lumbar spine shows spinal stenosis at L3-4-4 5 and L5-S1 moderate to moderately severe she has moderate bilateral neural foraminal narrowing at the L5-S1 region there is mi ld anterolisthesis of L3 she also has multilevel spondylitic changes of her lumbar spine as well. NEUROSURGICAL DIAGNOSES: Encounter Diagnoses Name Primary? 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 She cer tainly has significant discomfort in her low back with pain radiated and bilaterally L5 dist ribution I am also somewhat concerned in that she has weakness of her deltoid on the right arm and gives a history of weakness as well. She has not been evaluated in this regard. This patie nt has not undergone any conservative therapy at this time. I've asked her to undergo physical therapy evaluation and treatment. I've also asked her t o have steroid injections as well. We would like to see her back in approximately 6-8 weeks I've also asked her to undergo MRI of her cervical spine with and without contrast because of her increased patellar reflexes reflexes as well as is deltoid weakness on the right side . ELECTRONICALLY SIGNED BY: ALBER Donaldson, 05/07/2012 15:37 documented in this encounter Miscellaneous Notes Miscellaneous - ONBASE SCAN [facility] - 05/07/2012 12:00 AM PSTElectronically signed by [facility] at 05/10/2012 9:10 AM PSTMiscellaneous - ONBASE SCAN [facility] - 05/07/2012 12:00 AM PSTEle ctronically signed by [facility] at 05/10/2012 9:10 AM PSTdocumented in this encounter Plan of Treatment + +---------+--------+ + + | Name | Type | Priori | Associated Diagnoses | Order Schedule | | | | ty | | | + +---------+--------+ + + | MRI Cervical Spine w | Imaging | Routin | Radiculopathy, | Expected: | | wo Contrast | | e | cervical region | 05/07/2012, Expires: | | | | | | 05/07/2013 | + +---------+--------+ + + + + +--------+ + + | Name | Type | Priori | Associated Diagnoses | Order Schedule | | | | ty | | | + + +--------+ + + | Ambulatory referral | Outpatient | Routin | Lumbosacral | Expected: | | to Physical Therapy | Referral | e | radiculopathy at L5 | 05/07/2012, Expires: | | | | | Spinal stenosis of | 05/07/2013 | | | | | lumbar region | | | | | | Spondylolysis of | | | | | | lumbar region | | + + +--------+ + + | Ambulatory referral | Outpatient | Routin | Lumbosacral | Expected: | | to Physical Medicine | Referral | e | radiculopathy at L5 | 05/07/2012, Expires: | | Rehab | | | Spinal stenosis of | 05/07/2013 | | | | | lumbar region | | | | | | Spondylolysis of | | | | | | lumbar region | | + + +--------+ + + documented as of this encounter Visit Diagnoses + + | Diagnosis | + + | Lumbosacral radiculopathy at L5 - Primary Thoracic or lumbosacral neuritis or | | radiculitis, unspecified | + + | Radiculopathy, cervical region Brachial neuritis or radiculitis nos | + + | Spinal stenosis of lumbar region Spinal stenosis, lumbar region, without neurogenic | | claudication | + + | Spondylolysis of lumbar region Acquired spondylolisthesis | + + documented in this encounter
--- OUTSIDE RECORDS SUMMARY | ~2020-03-20 | XMS | Encounter Summary ---
Demographics + + + | Address | [address] | | | [place] [address] | + + + | Home Phone | | + + + | Preferred Language | Unknown | + + + | Marital Status | | + + + | Spiritism Affiliation | [id number] | + + + [...] Team Providers + +------+ + | Care Mitigation Supervisor Name | Role | Phone | + +------+ + | Froylan Godinez MD | PCP | | + +------+ + Encounter Details +--------+ + + + + | Date | Type | Department | Care Team | Description | +--------+ + + + + | 11/25/ | Orders Only | [facility] | Scarlett Agrawal, | Lumbar radiculopathy | | 2014 | | PHYSIATRY [address] | [employer] | (Primary Dx) | | | | [address] | | | | | | [place] | | | | | | [address] | | | | | | [phone] | | | +--------+ + + + [...] Not on filedocumented as of this encounter Results [place] [facility] Lumbar Transforaminal (12/04/2014 12:27 PM PDT) + + | Specimen | + + | | + + + + + | Narrative | Performed At | + + + | 12/04/2014 Transforaminal Epidural Steroid Injection Diagnosis: | [facility] | | Lumbar radiculopathy ICD-9 Code 724.4 Cathie Sorenson presents | [facility] | | to the fluoroscopy suite for a fluoroscopically-guided right L5-S1 [facility] | | transforaminal epidural steroid injection as part of conservative | - IMAGING | | management for chronic pain with lumbar radiculopathy and | | | degenerative disk disease. After informed consent was obtained, | | | the patient lay in the prone position on the fluoroscopy table. | | | The area was identified under fluoroscopic guidance. The area was | | | prepped and draped in sterile fashion. A 25-gauge, 1.5-inch needle | | | was inserted into this region and approximately 3 mL of buffered 1% | | | lidocaine was infused. Then, a 22-gauge spinal needle was | | | inserted into the posterior superior transforaminal space and | | | advanced into the epidural space under fluoroscopic guidance. | | | Confirmation into the epidural space was obtained with infusion of | | | approximately 1 mL of Omnipaque contrast which showed epidural flow | | | as well as nerve sheath flow. Then, a combination of 1.5 mL of | | | 1% lidocaine and 1.5 mL of 6 mg/mL Celestone was infused. The | | | patient tolerated the procedure well without complications. Pre- and | | | post-procedure blood pressures were stable. The patient was given | | | verbal as well as written follow-up instructions. Prior to the | | | start of the procedure, the following were performed and/or | | | verified, including correct patient identity, correct site/side marked | | | and visible, agreement on the procedure to be done, correct patient | | | positioning and an accurate procedure consent form. Any safety | | | precautions based on clinical history and/or medication use have been | | | addressed. I personally performed the procedure above. | | | Estimated blood loss: Minimal Complications: None Findings: As | | | expected Anesthesia: Local 1% Lidocaine | | + + + + + + + + | Performing | Address | City/State/Zipcode | Phone Number | | Organization | | | | + + + + + | [facility] | [address] | [place] | [phone] | | [facility] | | [address] | | | - IMAGING | | | | + + + + + documented in this encounter Visit Diagnoses + + | Diagnosis | + + | Lumbar radiculopathy - Primary Thoracic or lumbosacral neuritis or radiculitis, | | unspecified | + + documented in this encounter"
--- OUTSIDE RECORDS SUMMARY | ~2020-03-20 | XMS | Encounter Summary ---
Demographics + + + | Address | [address] | | | [place] [address] | + + + | Home Phone | | + + + | Preferred Language | Unknown | + + + | Marital Status | | + + + | Gnosticism Affiliation | 1073 | + + + | Race | White | + + + | Ethnic Group | Not or | + + + Author + + + | Author | [facility] | | | and [place] | + + + | Organization | [facility] | | | [...] Team Providers + +------+ + | Care Physician Recruiter Name | Role | Phone | + +------+ + | Froylan Godinez MD | PCP | | + +------+ + Encounter Details +--------+ + + + + | Date | Type | Department | Care Team | Description | +--------+ + + + + | 11/25/ | Abstract | [facility] [place] | Scott Freeman MD | | | 2015 | | [address]UR[address] | [address] [address] | | | | | [address] | [place] [address] | | | | | [place] | [phone] | | | | | [address] | | | | | | [phone] | | | +--------+ + + + [...]
--- OUTSIDE RECORDS SUMMARY | ~2020-03-20 | XMS | Encounter Summary ---
Demographics + + + | Address | [address] | | | [place] [address] | + + + | Home Phone | | + + + | Preferred Language | Unknown | + + + | Marital Status | | + + + | Jain Affiliation | 1073 | + + + | Race | White | + + + | Ethnic Group | Not or | + + + Author + + + | Author | [facility] | | | and [place] | + + + | Organization | [facility] | | | [...] Team Providers + +------+ + | Care Referral Clerk Name | Role | Phone | + +------+ + PCP | Unavailable | + +------+ + Encounter Details +--------+ + + + + | Date | Type | Department | Care Team | Description | +--------+ + + + + | 10/29/ | Hospital | [facility] | | | | 2002 - | Encounter | [facility] | | | | | | [facility] | | | | 02/19/ | | [place] | | | | 2002 | | [address] | | | | | | [phone] | | | +--------+ + + + [...]
--- OUTSIDE RECORDS SUMMARY | ~2020-03-20 | XMS | Encounter Summary ---
Demographics + + + | Address | [address] | | | [place] [address] | + + + | Home Phone | | + + + | Preferred Language | Unknown | + + + | Marital Status | | + + + | Quaker Affiliation | 1073 | + + + | Race | White | + + + | Ethnic Group | Not or | + + + Author + + + | Author | [facility] | | | and [place] | + + + | Organization | [facility] | | | [...] Team Providers + +------+ + | Care Complaint Investigator Name | Role | Phone | + +------+ + PCP | Unavailable | + +------+ + Encounter Details +--------+ + + + + | Date | Type | Department | Care Team | Description | +--------+ + + + + | 10/12/ | Hospital | [facility] | | | | 1998 - | Encounter | [facility] | | | | | | C[facility] | | | | 06/04/ | | [place] | | | | 1998 | | [address] | | | | | | [phone] | | | +--------+ + + + [...]
--- OUTSIDE RECORDS SUMMARY | ~2020-03-20 | XMS | Encounter Summary ---
Demographics + + + | Address | [address] | | | [place] [address] | + + + | Home Phone | | + + + | Preferred Language | Unknown | + + + | Marital Status | | + + + | Confucianist Affiliation | 1073 | + + + | Race | White | + + + | Ethnic Group | Not or | + + + Author + + + | Author | [facility] | | | and [place] | + + + | Organization | [facility] | | [...] Team Providers + +------+ + | Care Compact Assembler Name | Role | Phone | + +------+ + | Froylan Godinez MD | PCP | | + +------+ + Reason for Referral Evaluate & Treat (Routine) +--------+ + + + + + | Status | Reason | Specialty | Diagnoses / | Referred By | Referred To | | | | | Procedures | Contact | Contact | +--------+ + + + + + | Closed | Specialty | Physical | Diagnoses | Scott Freeman | | | | Services | Therapy | Lumbar | MD [address] | | | | Required | | radiculopath | [address] | | | | | | y Lumbar | [facility], | | | | | | stenosis | [place] [address] | | | | | | Degenerative | Phone: | | | | | | disc | [phone] | | | | | | disease, | Fax: | | | | | | lumbar | [phone] | | | | | | Foraminal | | | | | | | stenosis of | | | | | | | lumbar | | | | | | | region | | | +--------+ + + + + + + + | Scheduling Instructions | + + | [facility] in [place] | + + Reason for Visit + + + | Reason | Comments | + + + | Follow-up | LR Back Pain | + + + Evaluate & Treat (Routine) +--------+--------+ + + + + | Status | Reason | Specialty | Diagnoses / | Referred By | Referred To | | | | | Procedures | Contact | Contact | +--------+--------+ + + + + | Closed | | Neurosurgery | Diagnoses | Herbert, | Scott Freeman | | | | | Valeri | Froylan | MD [address] | | | | | Procedures | MD Sagar [address] | | | | | [place] OFFICE | [address] | [place] | | | | | CONSULTATION | [place] | [address] | | | | | NEW/ESTAB | [address] | Phone: | | | | | PATIENT [address] | [place], | [phone] | | | | | MIN Req MRI | [place] | Fax: | | | | | 10/01/14 | [address] | [phone] | | | | | | Phone: | | | | | | | [phone] | | | | | | | Fax: | | | | | | | [phone] | | +--------+--------+ + + + + Encounter Details +--------+---------+ + + + | Date | Type | Department | Care Team | Description | +--------+---------+ + + + | 12/29/ | Office | [facility] | Scott Freeman MD | Lumbar radiculopathy | | 2015 | Visit | NEUROSURGERY [address] | [address] | (Primary Dx); | | | | [address] | [place] [address] | Lumbar stenosis; | | | | [place], [place] | [phone] | Degenerative disc | | | | [address] | | disease, lumbar; | | | | [phone] | | Foraminal stenosis | | | | | | of lumbar region | +--------+---------+ + + + [...] + + + | Blood Pressure | 134/66 | 12/29/2014 11:09 AM | | | | | PDT | | + + + + + | Pulse | 62 | 12/29/2014 11:09 AM | | | | | PDT | | + + + + + | Temperature | - | - | | + + + + + | Respiratory Rate | 16 | 12/29/2014 11:09 AM | | | | | PDT | | + + + + + | Oxygen Saturation | - | - | | + + + + + | Inhaled Oxygen | - | - | | | Concentration | | | | + + + + + | Weight | 74.4 kg (164 lb) | 12/29/2014 11:09 AM | | | | | PDT | | + + + + + | Height | 157.5 cm (5' 2") | 12/29/2014 11:09 AM | | | | | PDT | | + + + + + | Body Mass Index | 30 | 12/29/2014 11:09 AM | | | | | PDT | | + + + + + documented in this encounter Progress Notes Scott Freeman MD - 12/29/2014 11:15 AM PDTFormatting of this note might be different from amy moreno. Scott Freeman MD [address] [place] [address], [address] [place], [place] [id number] FAX: NEUROSURGERY FOLLOW-UP CHIEF COMPLAINT: Chief Complaint Patient presents with Follow-up LR Back Pain HISTORY OF PRESENT ILLNESS: The patient is a 79 y.o. female with the complaint of back and leg pain. She was seen previously in 2012 here for similar problems. Her pain increased b ack in August and was very severe. She had a new MRI and x-rays and was arranged to have an injection. The pain is 75 % better after that. She still has pain down her right buttock a nd in her low back but it is now dull instead of sharp like it was. PAST MEDICAL HISTORY: Past Medical History Diagnosis Date High blood pressure High cholesterol Acid reflux Arthritis Breast cyst Gout Thyroid disease Thyroidectomy Cancer (HCC) Osteoarthritis PAST SURGICAL HISTORY: Past Surgical History Procedure Laterality Date Ovary surgery December 1965 2/3 of each ovary Breast lump removal 03/1996 and 04/2001 Left Side both times Thyroid surgery 10/1997 Removed Cervical polyp removal 04/2002 Laparoscopy 06/2002 Polyp removal Colonoscopy 01/2006 1 cancer, 1 cell, 2 clear Hysterectomy Appendectomy Eye surgery CURRENT MEDICATIONS: Current Outpatient Prescriptions on File Prior to Visit Medication Sig Dispense Refill aspirin 325 mg tablet Take 325 mg by mouth Daily. brimonidine-timolol (COMBIGAN) 0.2-0.5% ophthalmic solution Place 1 drop into the right eye 2 times daily. Calcium Carbonate-Vitamin D (CALTRATE 600+D PO) Take 1 tablet by mouth Once a week. Cholecalciferol (VITAMIN D3) 2000 UNITS CAPS Take 2,000 Units by mouth every morning. Cinnamon 500 MG CAPS Take 1,000 mg by mouth every morning. digoxin (LANOXIN) 125 mcg tablet Take 125 mcg by mouth Daily. HYDROcodone-acetaminophen (NORCO) 5-325 mg per tablet Take 1 tablet by mouth every 6 ho urs as needed for Pain. Levothyroxine Sodium 112 MCG CAPS Take 100 mcg by mouth every morning. omeprazole (PRILOSEC) 20 mg capsule Take 20 mg by mouth every morning (before breakfast ). oxyCODONE (ROXICODONE) 5 mg tablet Take 0.5-1 tablets by mouth every 4 hours as needed for Pain. 15 tablet 0 potassium chloride (KLOR-CON 10) 10 MEQ CR tablet Take 10 mEq by mouth Daily. simvastatin (ZOCOR) 40 mg tablet Take 40 mg by mouth nightly. travoprost (TRAVATAN) 0.004% ophthalmic solution Place 1 drop into the right eye nightl y. triamterene-hydrochlorothiazide (MAXZIDE-25) 37.5-25 mg per tablet Take 1 tablet by Daily. No current facility-administered medications on file prior to visit. ALLERGIES: Allergies [...] Maternal Grandmother Cancer Maternal Grandfather REVIEW OF SYSTEMS GENERALLY: No fever, no night sweats, no [...] above in the history of present illness. In addition, the patient has Numbness/pain of legs, Awake with numbness/pain, jeanie nge in walk, shaking. PSYCHIATRIC: No depression, no sleep disorders, no [...] no rheumatoid arthritis. PHYSICAL EXAMINATION: Blood pressure 134/66, pulse 62, resp. rate 16, height 1.575 m (5' 2"), weight 74.39 kg (16 4 lb). Body mass index is 29.99 kg/(m^2). GENERAL: Cathie Sorenson is in no acute distress with unlabored respirations. The michael cahnel does not appear uncomfortable throughout the exam today. HEENT: HEAD/FACE: EYES: EARS: NASOPHARNYX: OROPHARNYX: Normocephalic and atraumatic. There are no areas of recent trauma. Normal sclerae without icterus. SPINE: There is no tenderness in the midline of the cervical or thoracic spine. There is n o major palpable deformity of the spine. The lumbar spine shows there is tenderness in the midline of the L5 and S1 levels and off t o the right. To palpation, there is no signficant myofascial tenderness. EXTREMITIES: No cyanosis, clubbing, or edema. Distal pulses are palpable. .NEUROLOGICAL EXAM: MENTAL STATUS: The patient is awake, alert, and oriented. She follows simple and complex commands. She speech is fluent, her comprehends speech well, and her repeats well. She has no apparent deficits with short or long-term memory. MOTOR EXAM: (5 IS NORMAL) * Indicates pain limited MUSCLE/ MOVEMENT: RIGHT LEFT Deltoids 5 5 Biceps 5 5 Triceps 5 5 Wrist Flexion 5 5 Wrist Extension 5 5 Median Intrinsics 5 5 Ulnar Intrinsics 5 5 Supervisor Receiving And Processing Strength 5 5 Hip Flexion 5 5 Hip Extension 5 5 Knee Flexion 5 5 Knee Extension 5 5 Dorsiflexion 5 5 Extensor Hallicus Longus 5 5 Plantarflexion 5 5 SENSORY EXAM: Sensory exam shows slight diminished sensation to light touch over the lateral inferior leg s on both sides. REFLEXES: (2 OR 2+ IS NORMAL) REFLEX: RIGHT LEFT BICEPS 2 2 BRACHIORADIALIS 2 2 TRICEPS 2 2 PATELLAR 2+ 2 ACHILLES 2 2 DUMAS'S ABSENT ABSENT PLANTAR DOWNGOING DOWNGOING GAIT: Gait is steady. RADIOGRAPHIC REVIEW: The patient has an MRI and x-rays that show stenosis and DDD worst at L5-S1. She has right L5-S1 foraminal stenosis. ASSESSMENT: NEUROSURGICAL DIAGNOSES: Encounter Diagnoses Name Primary? Lumbar radiculopathy Yes Lumbar stenosis Degenerative disc disease, lumbar Foraminal stenosis of lumbar region GENERAL DIAGNOSES: Past Medical History Diagnosis Date High blood pressure High cholesterol Acid reflux Arthritis Breast cyst Gout Thyroid disease Thyroidectomy Cancer (HCC) Osteoarthritis PLAN: The patient is improved with an injection. I discussed options to help her improvement fur ther beyond 75% includin. Therapy 2. Injections including a R L5 and R S1 foraminal injection, up to 3 surgeries 3. Surgery She would like to start with the first plan. The other options are available to her and I would be happy to coordinate any of those for her hopefully with a lesser wait if things did indeed worsen. ELECTRONICALLY SIGNED BY: Scott Freeman MD, 12/29/2014 11:58 documented in this encou nter Plan of Treatment + + +--------+ + + | Name | Type | Priori | Associated Diagnoses | Order Schedule | | | | ty | | | + + +--------+ + + | OUTPATIENT PT | Outpatient | Routin | Lumbar | Ordered: 12/29/2014 | | EXTERNAL | Referral | e | radiculopathy | | | | | | Lumbar stenosis | | | | | | Degenerative disc | | | | | | disease, lumbar | | | | | | Foraminal stenosis | | | | | | of lumbar region | | + + +--------+ + + documented as of this encounter Visit Diagnoses + + | Diagnosis | + + | Lumbar radiculopathy - Primary Thoracic or lumbosacral neuritis or radiculitis, | | unspecified | + + | Lumbar stenosis Spinal stenosis, lumbar region, without neurogenic claudication | + + | Degenerative disc disease, lumbar Degeneration of lumbar or lumbosacral | | intervertebral disc | + + | Foraminal stenosis of lumbar region Spinal stenosis, lumbar region, without | | neurogenic claudication | + + documented in this encounter
--- OUTSIDE RECORDS SUMMARY | ~2020-03-20 | XMS | Encounter Summary ---
Demographics + + + | Address | [address] | | | [place] [address] | + + + | Home Phone | | + + + | Preferred Language | Unknown | + + + | Marital Status | | + + + | Hindu Affiliation | 1073 | + + + | Race | White | + + + | Ethnic Group | Not or | + + + Author + + + | Author | [facility] | | | and [place] | + + + | Organization | [facility] | | | [...] Team Providers + +------+ + | Care Road Driver Name | Role | Phone | + +------+ + PCP | Unavailable | + +------+ + Encounter Details +--------+ + + + + | Date | Type | Department | Care Team | Description | +--------+ + + + + | 05/01/ | Hospital | [facility] | | | | 1995 - | Encounter | [facility] | | | | | | CENTER [facility] | | | | 06/24/ | | [place] | | | | 1995 | | [address] | | | | | | [phone] | | | +--------+ + + + [...]
--- OUTSIDE RECORDS SUMMARY | ~2020-03-20 | XMS | Encounter Summary ---
Demographics + + + | Address | [address] | | | [place] [address] | + + + | Home Phone | | + + + | Preferred Language | Unknown | + + + | Marital Status | | + + + | Mosque Affiliation | 1073 | + + + | Race | White | + + + | Ethnic Group | Not or | + + + Author + + + | Author | [facility] | | | and [place] | + + + | Organization | [facility] | | | [...] Team Providers + +------+ + | Care Environmental Compliance Technician Name | Role | Phone | + [...] [facility] | | | | | Thoracic or | [place], | [address] | | | | | lumbosacral | Darrel T MD | [place], | | | | | neuritis or | [address] | [place] | | | | | | [place] | [address] | | | | | radiculitis, | [place], [place] | Phone: | | | | | unspecified | [address] | [phone] | | | | | Procedures | Phone: | Fax: | | | | | IN INJECT | [phone] | [phone] | | | | | ANES/STEROID | Fax: | | | | | | FORAMEN | [phone] | | | | | | LUMBAR/SACRA | | | | | | | L W IMG | | | | | | | GUIDE ,1 | | | | | | | LEVEL IN | | | | | | | TRIAMCINOLON | | | | | | | E ACET INJ | | | | | | | NOS, 10 MG | | | | | | | Right L5-S1 | | | | | | | TFESI-Referr | | | | | | | al from Dr | | | | | | | Yam | | | +--------+--------+ + + + + Encounter Details +--------+ + + + + | Date | Type | Department | Care Team | Description | +--------+ + + + + | 12/04/ | Hospital | [facility] | Darrel Alvarez | Lumbar radiculopathy | | 2015 | Encounter | MED CTR XRAY [address] | T, MD [address] | | | | | [address] [place] | [place], [place] | | | | | [place] [address] | [address] | | | | | [phone] | | | | | | | Human Performance Consultant, [facility] | | | | | | [place] [...] +---------+ + + | Blood Pressure | 177/74 | 12/04/2014 12:30 PM | | | | | PDT | | + +---------+ + + | Pulse | 79 | 12/04/2014 12:30 PM | | | | | PDT [...] | FL EPIDURAL STEROID | Routin | 12/04/2014 | Lumbar | Results for this | | INJECTION LUMBAR | e | 12:27 PM | radiculopathy | procedure are in the | | TRANSFORAMINAL | | PDT | | results section. | + +--------+ + + + documented in this encounter Results [place] MAURICIO Lumbar Transforaminal (12/04/2014 12:27 PM PDT) + + | Specimen | + + | | + + + + + | Narrative | Performed At | + + + | 12/04/2014 Transforaminal Epidural Steroid Injection Diagnosis: | [facility] | | Lumbar radiculopathy ICD-9 Code 724.4 Cathie Sorenson presents | [facility] | | to the fluoroscopy suite for a fluoroscopically-guided right L5-S1 [facility] | | transforaminal epidural steroid injection as [...] ST. | [address] | [place] | [phone] | | [facility] | | [address] | | | - IMAGING | | | | + + + + + documented in this encounter Visit Diagnoses + + | Diagnosis | + + | Lumbar radiculopathy Thoracic or lumbosacral neuritis or radiculitis, unspecified | + + documented in this encounter Administered Medications + +--------+ +------+------+------+ | Medication Order | MAR | Action | Dose | Rate | Site | | | Action | Date | | | | + +--------+ +------+------+------+ | betamethasone (CELESTONE | Given | 12/05/19 | 6 mg | | | | SOLUSPAN) injection 6 mg 6 mg, | | 15 12:28 | | | | | Other, ONCE, 12/04/14 at 1230, | | PM PDT | | | | | For 1 dose, Shake well. Not for | | | | | | | IV use., | | | | | | + +--------+ +------+------+------+ +---+---+ | | | +---+---+ + +-------+ +-------+---+---+ | iohexol (OMNIPAQUE 300) 300 | Given | 12/05/19 | 4 mLs | | | | mg/mL injection 4 mL 4 mL, | | 15 12:25 | | | | | INTRATHECAL, ONCE, 12/04/14 at | | PM PDT | | | | | 1230, For 1 dose | | | | | | + +-------+ +-------+---+---+ +---+---+ | | | +---+---+ + +-------+ +------+---+ + | lidocaine 1% injection 1 mL 1 | Given | 12/05/19 | 1 mL | | Other | | mL, Intradermal, ONCE, Fri | | 15 12:19 | | | (Comment | | 12/04/14 at 1230, For 1 dose | | PM PDT | | | ) | + +-------+ +------+---+ + +---+---+ | | | +---+---+ + +-------+ +------+---+---+ | sodium bicarbonate (NEUT) 4% | Given | 12/05/19 | 1 mL | | | | injection 1 mL 1 mL, | | 15 12:21 | | | | | Intravenous, ONCE, 12/04/14 at | | PM PDT | | | | | 1230, For 1 dose, Use for | | | | | | | addition to other parenteral | | | | | | | solutions., | | | | | | + +-------+ +------+---+---+ +---+---+ | | | +---+---+ documented in this encounter"
--- OUTSIDE RECORDS SUMMARY | ~2020-03-20 | XMS | Encounter Summary ---
Demographics + + + | Address | [address] | | | [place] [address] | + + + | Home Phone | | + + + | Preferred Language | Unknown | + + + | Marital Status | | + + + | Catholic Affiliation | 1073 | + + + | Race | White | + + + | Ethnic Group | Not or | + + + Author + + + | Author | [facility] | | | and [place] | + + + | Organization | [facility] | | | [...] Team Providers + +------+ + | Care Loader Semiconductor Dies Name | Role | Phone | + +------+ + | Froyaln Godinez MD | PCP | | + +------+ + Encounter Details +--------+ + + + + | Date | Type | Department | Care Team | Description | +--------+ + + + + | 04/30/ | Orders Only | [facility] | Fred Oden | Back pain (Primary | | 2011 | | NEUROSURGERY [address] | [address] | Dx) | | | | [address] | [address] [place] | | | | | [place] | [address] | | | | | [address] | | | | | | [phone] | | | +--------+ + + + [...] on filedocumented as of this encounter Results XR Lumbar Spine 2 or 3 Vw (05/07/2012 2:11 PM PST) + + | Specimen | + + | | + + + + + | Narrative | Performed At | + + + | [facility] | CENTER | | Department [address] [place] [address] [facility] | | [ rep [address]] [ rep [facility] | | [facility]] Signed | - IMAGING | | | | | Patient Name: CATHIE SORENSON Physician: | | | : 1935 Age: 76 Sex: F Unit #: [id number] | | | Exam Date: 05/07/12 Location: [facility] | | | Report #: [id number] Page: | | | %(RAD)RES..mtdd.print.filter("pg") of %(RAD) | | | RES..mtdd.print.filter("tpg") | | | | | | Accession Number: [id number] | | | THREE VIEWS LUMBAR SPINE, [...] | | | Transcribed Date/Time: 05/07/2012 15:18 Ornament Setter: | | | <<Signature on File>> | | | Jose Swenson | | | MD Izaiah05/08/12 [id number] <Electronically signed by Jose Bliss MD> | | | Jose Bliss MD 05/07/12 1411 Ornament Setter: | | | SMSA CRANE ACQUISITIONx Psdedxilppwth03/13/12 [address] | | | | | + + + + + + + + | Performing | Address | City/State/Zipcode | Phone Number | | Organization | | | | + + + + + | [address] | [address] | [place] | [phone] | | [facility] | | [address] | | | - IMAGING | | | | + + + + + documented in this encounter Visit Diagnoses + + | Diagnosis | + + | Back pain - Primary Backache, unspecified | + + documented in this encounter
--- OUTSIDE RECORDS SUMMARY | ~2020-03-20 | XMS | Encounter Summary ---
Demographics + + + | Address | [address] | | | [place] [address] | + + + | Home Phone | | + + + | Preferred Language | Unknown | + + + | Marital Status | | + + + | Shinto Affiliation | 1073 | + + + | Race | White | + + + | Ethnic Group | Not or | + + + Author + + + | Author | [facility] | | | and [place] | + + + | Organization | [facility] | | | and [...] Team Providers + +------+ + | Care Label Coder Name | Role | Phone | + +------+ + | Froylan Godinez MD | PCP | | + +------+ + Reason for Visit +--------+--------+ + | Reason | Onset | Comments | | | Date | | +--------+--------+ + | Other | 10/14/ | | | | 2014 | | +--------+--------+ + Encounter Details +--------+ + + + + | Date | Type | Department | Care Team | Description | +--------+ + + + + | 10/14/ | Telephone | [facility] [place] | Fred Oden | Other | | 2014 | | NEUROSURGERY [address] | [address] | | | | | [address] | [address] [place], [place] | | | | | [place], [place] | [id number] | | | | | [address] | | | | | | [phone] | | | +--------+ + + + [...] + + documented as of this encounter Miscellaneous Notes Telephone Encounter - Sapphire Hayden - 10/14/2014 2:29 PM PDTSee referral# [id number] Referral is pending review. Cathie is updated at this time. She verbalized understanding. elephone Encounter - Ivory Alexander - 10/14/2014 10:14 AM PDTPatient called today to ask if Tin had a chance to l taty at the MRI that was completed at [facility] to determine if she would be eligible for a referra l for injection only with Dr. Alvarez. Please advise. documented in this encounter Plan of Treatment Not on filedocumented as of this encounter Visit Diagnoses Not on filedocumented in this encounter"
--- OUTSIDE RECORDS SUMMARY | ~2020-03-20 | XMS | Encounter Summary ---
Demographics + + + | Address | [address] | | | [place] [address] | + + + | Home Phone | | + + + | Preferred Language | Unknown | + + + | Marital Status | | + + + | Cheondoism Affiliation | 1073 | + + + | Race | White | + + + | Ethnic Group | Not or | + + + Author + + + | Author | [facility] | | | and [place] | + + + | Organization | [facility] | | [...] Team Providers + +------+ + | Care Rug Layer Name | Role | Phone | + +------+ + | Danna Colunga | PCP | | | PA | | | + +------+ + Reason for Visit + + + | Reason | Comments | + + + | New Patient | | + + + | Back Pain | | + + + Evaluate & Treat (Routine) + +--------+ + + + + | Status | Reason | Specialty | Diagnoses / | Referred By | Referred To | | | | | Procedures | Contact | Contact | + +--------+ + + + + | Authorized | | Physical | Diagnoses | Keanu, | Antonio, | | | | Medicine and | Spinal | Danna | Darrel Moon MD | | | | Rehabilitatio | stenosis, | ALBER Hart | [address] | | | | n | site | [address] | [place] | | | | | unspecified | [address] | [place], [place] | | | | | | [place], | [address] Phone: | | | | | | [place] | [phone] | | | | | | [address] | Fax: | | | | | | Phone: | [phone] | | | | | | [phone] | | | | | | | Fax: | | | | | | | [phone] | | + +--------+ + + + + Encounter Details +--------+---------+ + + + | Date | Type | Department | Care Team | Description | +--------+---------+ + + + | 01/25/ | Office | [facility] | Jess Marie | Spinal stenosis of | | 2019 | Visit | PHYSIATRY [address] | [address]ILIANA Carrillo [address] | lumbar region, | | | | [address] | [employer] [address] | unspecified whether | | | | [place] | [address] | neurogenic | | | | [address] | [address] | claudication present | | | | [phone] | | (Primary Dx); | | | | | | Lumbar | | | | | | radiculopathy; Left | | | | | | leg weakness | +--------+---------+ + + + Social History [...] + + + | Blood Pressure | 154/73 | 01/26/2020 1:02 PM | | | | | PDT | | + + + + + | Pulse | 77 | 01/26/2020 1:02 PM | | | | | PDT | | + + + + + | Temperature | 36.7 C (98.1 F) | 01/26/2020 1:02 PM | | | | | PDT | | + + + + + | Respiratory Rate | 16 | 01/26/2020 1:02 PM | | | | | PDT | | + + + + + | Oxygen Saturation | - | - | | + + + + + | Inhaled Oxygen | - | - | | | Concentration | | | | + + + + + | Weight | 65.8 kg (145 lb) | 01/26/2020 1:02 PM | | | | | PDT | | + + + + + | Height | 158.8 cm (5' 2.5") | 01/26/2020 1:02 PM | | | | | PDT | | + + + + + | Body Mass Index | 26.1 | 01/26/2020 1:02 PM | | | | | PDT | | + + + + + documented in this encounter Patient Instructions Patient Instructions Jess Marie PA-C - 01/26/2020 1:00 PM PDT1. A order for l eft leg epidural steroid injection order has been placed. Once authorized we will call you to schedule this. 2. If this injection is not significantly helpful for your pain recurs quickly please call the office and I will coordinate an MRI of the low back. This will lead us to better advis e you on treatment recommendations. Follow-up at the hospital thirty minutes before your scheduled procedure to allow for time to check in. You may eat and drink as usual on the day of the procedure. If you are scheduled for an epidural injection do not take any blood thinning medications f or at least 5-7 days prior to your procedure unless you have been instructed by another phys ician not to discontinue blood thinning medications. If you are having a procedure other than an epidural injection (i.e. facet injection, media l branch block, SI joint injection or other joint injection) it is not absolutely necessary to discontinue blood thinning medications but doing so will decrease the risk of bruising or bleeding. If you have had a prior stroke, DVT or PE or if you are taking blood thinning medication be cause you have atrial fibrillation, a prosthetic cardiac valve replacement or heart stenting do not stop taking your blood thinning medications unless you have permission from your car diologist or primary care provider. All other medications should be taken as usual on the day of the procedure. Common blood thinning medications include: Aspirin (a baby aspirin is o.k.) Ibuprofen (Advil or Motrin) Naproxen (Aleve) Nabumetone (Relafen) Clopidogrel (Plavix) Dipyridamole/ASA (Aggrenox) Warfarin (Coumadin) Dabigatran (Pradaxa) Rivaroxaban (Xarelto) There are many others. If you have questions about your medications and whether or not you should stop any medications please contact our office. If you are having an epidural injection or if you take any medication for relaxation/sedati on on the day of the procedure you must provide a cryogenic transport driver to take you home. For all procedur es it is recommended that someone else drive you home. Lumbar Epidural Injection: Your Procedure A lumbar epidural injection is an outpatient procedure. It s often done in a hospital or an outpatient surgery center. Before your shot, your healthcare provider willtell you how to get ready. Getting ready You may need to do the following: Give thehealthcare providera list of all medicines you take, such as aspirin and ant i-inflammatories. (You may need to stop taking some of them before the injection.) You may be asked not toeat or drink anything for several hours before check-in. Arrange for an adult friend or family member to drive you home afterward. Bring any requested X-ray, CT, or MRI images on the day of the procedure. During the procedure The injection takes just a few minutes. But extra time is needed to get ready. You may be g iven medicine beforehand to help you relax: In some cases, monitoring devices may be attached to your chest or side. These devices m easure your heart rate, breathing, and blood pressure. You lie on your stomach or side, depending on where theshot will be given. Your back i s cleaned and may be covered with sterile towels. Medicine is given to numb the skin near the place of the shot. If X-ray imaging (fluoroscopy) is to be used, a contrast dye may be injected into your back. This helps yourhealthcare providerget a better image. A local anesthetic (for numbing), steroids (for reducing inflammation), or both are inje cted into the epidural space. The procedure is very safe. But there is a very small risk of infection or local reaction a fterward. Seek medical care right away if you have: Increasing pain Headaches (especially when standing up) Redness Fever Symptoms of infection After the procedure You ll spendtime in a recovery area after the procedure. Before going home, you may be asked to fill out another survey about your pain. [place] last reviewed this educational content on 11/23/201719997311-0213 [employer]. [address] [place] [address], [place] [address]. All righ ts reserved. This information is not intended as a substitute for professional medical care. Always follow your healthcare professional's instructions. documented in this encounter Progress Notes Jess Marie PA-C - 01/26/2020 1:00 PM PDTFormatting of this note might be diffe rent from the original. Josefina Marie PA-C [address] [facility] [address] [place] [address] PHONE: FAX: PHYSIATRY HISTORY AND PHYSICAL EXAMINATION CHIEF COMPLAINT: Chief Complaint Patient presents with New Patient Back Pain HISTORY OF PRESENT ILLNESS: The patient is a 84 y.o. female with the complaint of back, le ft lower leg symptoms that began 1 month ago. She does have a history of chronic back pain with epidural steroid injections x3 in 2012 and x1 in 2014. In 2014 Dr. Alvarez did a ri ght TFESI L5-S1 which did significantly help her pain. Around that time she was also evalua omero by Dr. Freeman who was following her but fortunately did not need to do surgery. She prese nts today due to recent onset of left lower extremity pain and weakness The patient presents after being for the last year and increasing her activity in [employer]. She had a faithful and positive experience by walking in the water at [employer] prior to but has lost her opportunity to exercise in the pool since August. Her symptoms reportedly are stable and mildly improved with gabapentin. She rates the pain as severe and rated a 10/10 without medication of 5/10 with medication. The symptoms are daily. She describes the pain as aching, numbing, sharp and shooting. The patient describes leg symptoms that occur on left side. The leg symptoms account for g reater than or equal to 50% of her symptoms. The leg symptoms are persistent and the sympto ms travels from the left buttocks to the left lateral ankle and S1 dermatome with cramping i n the left calf. The patient also describes left low back pain in the SI joint region and l eft foot weakness2. The patient does not report any change in bowel or bladder function recently. Her symptoms improve with nothing. Her symptoms worsen with standing, sitting, walking, kneeling, bending and twisting. She has tried Chiropactic and Steroids. . PAST MEDICAL HISTORY: Past Medical History: Diagnosis Date Acid reflux Arthritis Benign neoplasm of large intestine Breast cyst Cancer (HCC) Colon, diverticulosis Congenital glaucoma with Chamber Angle Anormalies Gout High blood pressure High cholesterol Hypothyroidism Lumbago Lumbar neuritis Osteoarthritis Osteopenia Spinal stenosis, site unspecified Thoracic neuritis Thyroid disease Thyroidectomy Undiagnosed cardiac murmurs PAST SURGICAL HISTORY: Past Surgical History: Procedure Laterality Date APPENDECTOMY Breast Lump removal 03/1996 and 04/2001 Left Side both times CATARACT REMOVAL Left 05/2015 CATARACT REMOVAL 01/2012 Cataract extraction with trabeculectomy CERVICAL POLYP REMOVAL 04/2002 COLONOSCOPY 01/2006 1 cancer, 1 cell, 2 clear EYE SURGERY HYSTERECTOMY 12/2009 LAPAROSCOPY 06/2002 Polyp removal OVARY SURGERY December 1965 2/3 of each ovary THYROID SURGERY 10/1997 Removed CURRENT MEDICATIONS: Current Outpatient Medications Medication Sig Dispense Refill aspirin 325 mg tablet Take 325 mg by mouth Daily. brimonidine-timolol (COMBIGAN) 0.2-0.5% ophthalmic solution Place 1 drop into the right eye 2 times daily. Cholecalciferol (VITAMIN D3) 2000 UNITS CAPS Take 2,000 Units by mouth every morning. Cinnamon 500 MG CAPS Take 1,000 mg by mouth every morning. digoxin (LANOXIN) 125 mcg tablet Take 125 mcg by mouth Daily. gabapentin (NEURONTIN) 100 mg capsule Take 200 mg by mouth nightly . levothyroxine (SYNTHROID) 100 mcg tablet Take 100 mcg by mouth Daily. lisinopril (PRINIVIL, ZESTRIL) 20 mg tablet Take 20 mg by mouth Daily. omeprazole (PRILOSEC) 20 mg capsule Take 20 mg by mouth every morning (before breakfast ). RESTASIS 0.05 % ophthalmic emulsion instill 1 drop into both eyes twice a day simvastatin (ZOCOR) 40 mg tablet Take 40 mg by mouth nightly. travoprost (TRAVATAN) 0.004% ophthalmic solution Place 1 drop into the right eye nightl y. No current facility-administered medications for this visit. ALLERGIES: Allergies Allergen Reactions Food Other (See Comments) Artifical Sweetner Splenda, stinging mouth, slufffing of the mouth. Diet Drinks Allopurinol Unknown Lipitor [Atorvastatin] Unknown Tricor [Fenofibrate] Unknown SOCIAL HISTORY: The patient reports that she has never smoked. She has never used smokeless tobacco. She r eports previous alcohol use. She reports that she does not use drugs. FAMILY HISTORY: Family History Problem Relation Age of Onset No known problems Father Stroke Mother No known problems Brother No known problems Child No known problems Child Cancer Maternal Aunt Cancer Maternal Grandmother Malig hyperten Maternal Grandmother Cancer Maternal Grandfather Malig hyperten Maternal Grandfather Malig hyperten Paternal Grandmother Malig hyperten Paternal Grandfather REVIEW OF SYSTEMS: GENERALLY: No fever, no night sweats, no anemia, no fatigue, no recent profound weight ch anges. EYES: No eye problems, no impaired sight, no use of corrective lenses, no eye injury, no d ouble vision, no transient blindness. EARS, NOSE, AND THROAT: No changes in taste or smell, no hearing difficulty, no ringing in the ears, no ear drainage, no ear injury, no dizziness, no voice changes, no difficulty swa llowing, no significant snoring, no sleep apnea/CPAP, no sinus problems, no major dental wor k. NEUROLOGICALLY: Please see the review of systems discussed above in the history of present illness. In addition, She has numbness/pain of legs, weakness, muscle aching, change in wa lk, pain in back. PSYCHIATRIC: No depression, no difficulty sleeping, no anxiety, no bipolar disorder. CARDIOVASCULAR: No heart attacks, no heart murmur, no heart fluttering, no chest pain, no ankle swelling. LUNG DISEASE: No shortness of breath, no cough, no tuberculosis, no bloody cough, no asthm a, no emphysema/COPD. GASTROINTESTINAL: No bowel disease, no nausea or vomiting, no rectal bleeding, no constipa tion, no fecal stool incontinence, no liver/gallbladder disease, no abdominal pain, no ulcer s. KIDNEY DISEASE: No urinary frequency, no painful or difficult urination, no urinary incont inence, no bladder problems, no impotence. ENDOCRINE: No diabetes, no thyroid disease, no osteopenia or osteoporosis, no breast drain age. SKIN: No breast lumps, no skin disease or skin changes, no rashes/itches. HEMATOLOGIC/LYMPHATIC: No enlarged lymph nodes, no easy or unusual bleeding, no personal h istory of cancer. RHEUMATOLOGIC: No joint pain/arthritis, no rheumatoid arthritis. PHYSICAL EXAMINATION: Blood pressure 154/73, pulse 77, temperature 36.7 C (98.1 F), resp. rate 16, height 1.5 88 m (5' 2.5"), weight 65.8 kg (145 lb). Body mass index is 26.1 kg/m. GENERAL: Cathie Sorenson is in no acute distress with unlabored respirations. She do es not appear uncomfortable throughout the exam today. HEENT: Head: Normocephalic/atraumatic with no areas of recent trauma. Eyes: Normal sclerae without icterus. Ears: No drainage or tenderness. Nasopharynx: Clear without drainage. Oropharynx: Clear without erythema. NECK (ANTERIOR): Supple and without palpable masses. CHEST: Unlabored respirations HEART: No lower extremity edema noted ABDOMEN: Soft, non-tender, non-distended, and without palpable masses. The patient is not obese. NEUROLOGICAL: The patient is awake, alert, and oriented to time, place, person. She follows simple and complex commands. Her speech is fluent. She comprehends speech well. She has no apparent deficits with short or longterm memory. Cranial nerves 2-12 appear grossly intact. EXTREMITIES: No cyanosis, clubbing, or edema. Distal pulses are palpable. PHYSICAL EXAM: MENTAL STATUS: She is awake, alert, and oriented. She follows simple and complex commands. Her speech is fluent, she comprehends speech well, and she repeats well. She has no apparent deficits with short or longterm memory. CRANIAL NERVES: II: Acuity is intact. [...] Indicates pain limited MUSCLE/ MOVEMENT: RIGHT LEFT Hip Flexion 5 4+ Hip Extension 5 5 Knee Flexion 5 5 Knee Extension 5 5 Dorsiflexion 5 4- Extensor Hallicus Longus 5 4- Plantarflexion 5 5 SENSORY EXAM: Sensory exam shows no diminished sensation to light touch or pain throughout the upper and lower extremities. REFLEXES: (2 OR 2+ IS NORMAL) REFLEX: RIGHT LEFT PATELLAR 2 1+ ACHILLES 2 2 GAIT: Gait is antalgic favoring her left leg with high-stepping with the left foot. She is able to rise up on tiptoes with balance support. Heel walk is attempted with difficulty on the l eft. Lumbar flexion and extension are demonstrated with pulling reported on lumbar flexion in the low back. Lumbar extension limited to about 5 degrees of pain on extension. There i s focal palpable tenderness over the left SI joint and left L5-S1 facet joint. PERIPHERAL NERVE/MISC: . Straight leg raise is positive left lower extremity with cramping in the left calf Dannie's test of the hips is negative bilaterally. TEST AND RADIOGRAPHIC REVIEW: Her imaging was reviewed in detail today during the visit. The MRI from 10/07/2014 shows mo derate to severe DDD and facet arthropathy throughout the majority lumbar spine most signifi cant at L3-4 with diffuse disc bulge and severe facet arthropathy causing moderate to severe central stenosis and left recess stenosis. Moderate bilateral neuroforaminal stenosis. Mo derate central stenosis at L4-5 and L5-S1. Severe bilateral subarticular recess foraminal s tenosis at L5-S1.. Lumbar x-rays from 12/29/2014 shows no major instability. Severe DDD at L5-S1 with anterior listhesis of L3 on L4 ASSESSMENT: NEUROSURGICAL DIAGNOSES: Encounter Diagnoses Name Primary? Spinal stenosis of lumbar region, unspecified whether neurogenic claudication present Y es Lumbar radiculopathy Left leg weakness GENERAL DIAGNOSES: Past Medical History: Diagnosis Date Acid reflux Arthritis Benign neoplasm of large intestine Breast cyst Cancer (HCC) Colon, diverticulosis Congenital glaucoma with Chamber Angle Anormalies Gout High blood pressure High cholesterol Hypothyroidism Lumbago Lumbar neuritis Osteoarthritis Osteopenia Spinal stenosis, site unspecified Thoracic neuritis Thyroid disease Thyroidectomy Undiagnosed cardiac murmurs PLAN: Cathie Kena Sorenson presented today, and it was a pleasure seeing this patient and assess ing her problems. 1) Today we discussed the patient's differential diagnosis with the likely primary issue be ing LUMBAR RADICULOPATHY left L5 and S1 with left L5 weakness. Patient's description of symp toms, physical exam, and imaging suggest this diagnosis at this time. 2) I counseled patient on treatment options which included conservative self management usi ng OTC NSAIDs/Ice and heat packs, physical therapy, prescription medications, epidural stero id injection, neuromodulation therapies, as well as possible surgical intervention. 3) Imaging: As descibed above in radiology review. We will consider lumbar MRI promptly if her TFESI is not significantly helpful. 4) The patient has had significant conservative care including medications (NSAIDS and narc otics), PT (multiple sessions over the years) and day care center director. Unfortunately Cathie Sorenson continues to have significant discomfort. It appears to me that the pain is pr imarily coming from L5-S1 severe DDD and foraminal narrowing.. I did feel that Cathie Sorenson would be a good candidate for interventional proce dures and I offered a TFESI left L5-S1 and left S1 to be done. I did feel that Cathie Sorenson would be a good candidate for medication: Patient is currently on gabapentin through her PCP and I recommend she continue this 5) Patient will follow up with me 3 weeks post injection/as needed to discuss any imaging a nd/or progress with today's treatment plan. 6) If current treatment plan is insufficient for symptom relief we could MRI of the lumbar spine of left lower extremity pain and weakness do not significantly improve. The patient a lso would likely benefit from left SI joint injection. I did briefly discuss with her the p ossibility of an office visit same day as procedure however her secondary insurance may need preauthorization. I spent 30 minutes in visit with Cathie Sorenson today with the majority of time spen t counselling the patient on her diagnosis, options for her care, and coordinating her care. 01/26/20 ELECTRONICALLY SIGNED BY: Josefina Marie PA-C, 01/26/2020 1:36 PM PDT documented in this encounter Plan of Treatment Not on filedocumented as of this encounter Results [place] MAURICIO Lumbar Sacral [...] + | Diagnosis | + + | Spinal stenosis of lumbar region, unspecified whether neurogenic claudication present | | - Primary | + + | Lumbar radiculopathy Thoracic or lumbosacral neuritis or radiculitis, unspecified | + + | Left leg weakness Other musculoskeletal symptoms referable to limbs | + + documented in this encounter
--- OUTSIDE RECORDS SUMMARY | ~2020-03-20 | XMS | Encounter Summary ---
Demographics + + + | Address | [address] | | | [place] [address] | + + + | Home Phone | | + + + | Preferred Language | Unknown | + + + | Marital Status | | + + + | Gnosticism Affiliation | 1073 | + + + | Race | White | + + + | Ethnic Group | Not or | + + + Author + + + | Author | [facility] | | | and [place] | + + + | Organization | [facility] | | [...] Team Providers + +------+ + | Care Night Clerk Auditor Name | Role | Phone | + +------+ + PCP | Unavailable | + +------+ + Encounter Details +--------+ + + + + | Date | Type | Department | Care Team | Description | +--------+ + + + + | 11/09/ | Hospital | [facility] | | | | 2003 - | Encounter | [facility] | | | | | | CENTER [facility] | | | | 02/07/ | | [place] | | | | 2003 | | [address] | | | | | | [phone] | | | +--------+ + + + [...]
--- OUTSIDE RECORDS SUMMARY | ~2020-03-20 | XMS | Encounter Summary ---
Demographics + + + | Address | [address] | | | [place] [address] | + + + | Home Phone | | + + + | Preferred Language | Unknown | + + + | Marital Status | | + + + | Voodoo Affiliation | 1073 | + + + | Race | White | + + + | Ethnic Group | Not or | + + + Author + + + | Author | [facility] | | | and [place] | + + + | Organization | [facility] | | | and [...] Team Providers + +------+ + | Care Traffic Rate Analyst Name | Role | Phone | + +------+ + PCP | Unavailable | + +------+ + Encounter Details +--------+ + + + + | Date | Type | Department | Care Team | Description | +--------+ + + + + | 10/17/ | Hospital | [facility] | | | | 1999 - | Encounter | MED [facility] | | | | | | CENTER [facility] | | | | 06/02/ | | [place] | | | | 1999 | | [address] | | | | | | [phone] | | | +--------+ + + + [...]
--- OUTSIDE RECORDS SUMMARY | ~2020-03-20 | XMS | Encounter Summary ---
Demographics + + + | Address | [address] | | | [place] [address] | + + + | Home Phone | | + + + | Preferred Language | Unknown | + + + | Marital Status | | + + + | Rastafarian Affiliation | 1073 | + + + | Race | White | + + + | Ethnic Group | Not or | + + + Author + + + | Author | [facility] | | | and [place] | + + + | Organization | [facility] | | [...] Team Providers + +------+ + | Care Communications Tower Technician Name | Role | Phone | + +------+ + | Froylan Godinez MD | PCP | | + +------+ + Encounter Details +--------+ + + + + | Date | Type | Department | Care Team | Description | +--------+ + + + + | 01/21/ | Abstract | [facility] | Provider, | | | 2020 | | PHYSIATRY [address] | [address] | | | | | [address] | [address] | | | | | [place] | [place] [address] | | | | | [address] | | | | | | [phone] | | | +--------+ + + + [...]
--- OUTSIDE RECORDS SUMMARY | ~2020-03-20 | XMS | Encounter Summary ---
Demographics + + + | Address | [address] | | | [place] [address] | + + + | Home Phone | | + + + | Preferred Language | Unknown | + + + | Marital Status | | + + + | Sabianism Affiliation | 1073 | + + + | Race | White | + + + | Ethnic Group | Not or | + + + Author + + + | Author | [facility] | | | and [place] | + + + | Organization | [facility] | | | and [...] Team Providers + +------+ + | Care Stained Glass Installer Name | Role | Phone | + +------+ + PCP | Unavailable | + +------+ + Encounter Details +--------+ + + + + | Date | Type | Department | Care Team | Description | +--------+ + + + + | 05/06/ | Hospital | [facility] | | | | 2002 - | Encounter | MED CTR [facility] | | | | | | CENTER [facility] | | | | 06/20/ | | [place] | | | | 2002 | | [address] | | | | | | [phone] | | | +--------+ + + + [...]
--- OUTSIDE RECORDS SUMMARY | ~2020-03-20 | XMS | Encounter Summary ---
Demographics + + + | Address | [address] | | | [place] [address] | + + + | Home Phone | | + + + | Preferred Language | Unknown | + + + | Marital Status | | + + + | Denominational Affiliation | 1073 | + + + | Race | White | + + + | Ethnic Group | Not or | + + + Author + + + | Author | [facility] | | | and [place] | + + + | Organization | [facility] | | | [...] Team Providers + +------+ + | Care Manager Cosmetic Name | Role | Phone | + +------+ + | Froylan Godinez MD | PCP | | + +------+ + Reason for Visit + +--------+ + | Reason | Onset | Comments | | | Date | | + +--------+ + | Injections | 09/14/ | | | | 2014 | | + +--------+ + Encounter Details +--------+ + + + + | Date | Type | Department | Care Team | Description | +--------+ + + + + | 09/14/ | Telephone | [facility] | Fred Oden | Injections | | 2015 | | NEUROSURGERY [address] | [address] | | | | | [address] [place], [place] | | | | | [place], [place] | [address] | | | | | [address] | | | | | | [phone] | | | +--------+ + + + [...] Notes Telephone Encounter - Sapphire Hayden - 09/14/2014 4:42 PM PDTJodie is going to [facility] her PCP to discuss further work-up of her symptoms. elephone Encounter - Fred Oden PA - 09/14/2014 2:18 PM PDTJodie should have more work up since her sym ptoms have worsened since we saw her last. She might need another MRI. elephone Encounter - Sapphire Hayden - 09/14/2014 12:48 PM PDTPatient last seen in the office 08/13/12. She is having trouble walking or standing for long periods of time. Pain is in the right side, low back that rad iates into her leg and foot. She describes this pain as starting out as a "dull" pain that increases to a "sharp" sensation intermittently. She has spoken to her PCP to discuss this further but this week he is out of the office. Please advise if you would recommend a refer ral for injection only or follow-up in the office? elephone Encounter - Lary Lentz - 09/14/2014 11:58 AM PDTPatient returned call. elephone Encounter - Sapphire Hayden - 09/14/2014 10:54 AM PDTCall returned. No voicemail available. Will call again at a later time. elephone Encounter - Veronica Brooks - 09/14/2014 9:4 6 AM PDTSherril called she would like a referral to see if another injection. She is in a lot pain. Cathie called her PCP office but her doctor is on vaccation. She woul d like to know if there is anyway we can do this, please advise. documented in this encounter Plan of Treatment Not on filedocumented as of this encounter Visit Diagnoses Not on filedocumented in this encounter
--- OUTSIDE RECORDS SUMMARY | ~2020-03-20 | XMS | Encounter Summary ---
Demographics + + + | Address | [address] | | | [place] [address] | + + + | Home Phone | | + + + | Preferred Language | Unknown | + + + | Marital Status | | + + + | Mandaen Affiliation | 1073 | + + + | Race | White | + + + | Ethnic Group | Not or | + + + Author + + + | Author | [facility] | | | and [place] | + + + | Organization | [facility] | | [...] Team Providers + +------+ + | Care Terrazzo Finisher Name | Role | Phone | + +------+ + | Froylan Godinez MD | PCP | | + +------+ + Encounter Details +--------+ + + + + | Date | Type | Department | Care Team | Description | +--------+ + + + + | 07/02/ | Orders Only | [facility] [place] | Fred Oden | | | 2012 | | NEUROSURGERY [address] | [address] | | | | | [address] [place] | | | | | [place] | [address] | | | | | [address] | | | | | | [phone] | | | +--------+ + + + [...] + +--------+ + + + | XR CERVICAL SPINE 4 | Routin | 07/02/2012 | | Results for this | | OR 5 VWS | e | 3:55 PM | | procedure are in the | | | | PST | | results section. | + +--------+ + + + documented in this encounter Results XR Cervical Spine 4 or 5 Vws (07/02/2012 3:55 PM PST) + + | Specimen | + + | | + + + + + | Narrative | Performed At | + + + | Accession Number: [id number] CERVICAL SPINE X-RAY | | | CLINICAL HISTORY: CERVICAL STENOSIS OF SPINE CANAL, CERVICAL | | | MYELOPATHY. COMPARISON: 05/08/2012. FINDINGS: The | | | cervical spine is evaluated on the lateral view to the level of C6. | | | There is loss of disk height at the level of C4-C5 and C5-C6. | | | Vertebral body height is maintained. Uncinate process spurring is | | | seen diffusely in the cervical spine. Vertebral body alignment is | | | maintained on the neutral upright and extension views, with | | | approximately 2 mm retrolisthesis of C4 on C5 seen on the flexion | | | view. Prevertebral soft tissues are unremarkable. There is | | | diffuse facet degenerative hypertrophy. The visualized structures of | | | the skull base and posterior face are also unremarkable. | | | IMPRESSION: 1. 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 LOSS OF DISK HEIGHT AT C4-C5 AND C5-C6. | | | OTHER SPONDYLOTIC CHANGE. Dictated Date/Time: | | | 07/02/2012 17:35 Transcribed Date/Time: 07/02/2012 17:52 | | | Government Affairs Researcher: <<Signature on File>> | | | Scott Crane | | | MD Carlin07/03/12 8142 <Electronically signed by Scott Crane | | | Carlin RODRIGUEZ> Scott Gillis MD 07/02/12 8789 | | | Government Affairs Researcher: [email or web address]/08/13 7719 | | + + + + + | Procedure Note | + + | Alexander Wooten Results In - 11/08/2015 4:25 PM PDT Accession Number: [id number] | | SPINE X-RAY CLINICAL HISTORY: CERVICAL STENOSIS OF SPINE CANAL, CERVICAL MYELOPATHY. | | COMPARISON: 05/08/2012. FINDINGS: The cervical spine is evaluated on the lateral | | view to the level of C6. There is loss of disk height at the level of C4-C5 and C5-C6. | | Vertebralbody height is maintained. Uncinate process spurring is seen diffusely in the | | cervical spine. Vertebral body alignment is maintained on the neutral uprightand | | extension views, with approximately 2 mm retrolisthesis of C4 on C5 seen on the flexion | | view. Prevertebral soft tissues are unremarkable. There isdiffuse facet degenerative | | hypertrophy. The visualized structures of the skull base and posterior face are also | | unremarkable. IMPRESSION: 1. 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 LOSS OF DISK HEIGHT AT C4-C5 AND C5-C6. OTHER SPONDYLOTIC CHANGE. | | Dictated Date/Time: 07/02/2012 17:35Transcribed Date/Time: 07/02/2012 | | 17:52Transcriptionist: <<Signature on | | File>> Scott Gillis | | 07/03/12 9542<Electronically signed by Scott Gillis MD>Scott Gillis MD | | 07/02/12 1759Transcriptionist: Freddy Christiansen07/02/12 0559 | |1. 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 LOSS OF DISK HEIGHT AT C4-C5 AND C5-C6. | |OTHER SPONDYLOTIC CHANGE. | | | | | | | |Dictated Date/Time: 07/02/2012 17:35 | |Transcribed Date/Time: 07/02/2012 17:52 | |Government Affairs Researcher: | | | | | | | |<<Signature on File>> | | | |Scott Gillis MD07/03/12 3699 | |<Electronically signed by Scott Gillis MD> | | | | | |Scott Gillis MD 07/02/12 5624 | |Government Affairs Researcher: Freddy [email or web address]/08/13 0252 | + + documented in this encounter Visit Diagnoses Not on filedocumented in this encounter"
--- OUTSIDE RECORDS SUMMARY | ~2020-03-20 | XMS | Encounter Summary ---
Demographics + + + | Address | [address] | | | [place] [address] | + + + | Home Phone | | + + + | Preferred Language | Unknown | + + + | Marital Status | | + + + | Advent Affiliation | 1073 | + + + | Race | White | + + + | Ethnic Group | Not or | + + + Author + + + | Author | [facility] | | | and [place] | + + + | Organization | [facility] | | | [...] Team Providers + +------+ + | Care Mortgage Accounting Clerk Name | Role | Phone | [...] | | | Services | Therapy | Cervical | Fred | | | | Required | | myelopathy | [place] [address] | | | | | | ([facility]LY [facility]) | [address] | | | | | [address]ervical | [address] | | | | | | stenosis of | [place] | | | | | | spinal canal | [address] | | | | | | | Phone: | | | | | | | [phone] | | | | | | | Fax: | | | | | | | [phone] | | +--------+ + + + + + Reason for Visit + + + | Reason | Comments | + + + | Follow-up | | + + + Encounter Details +--------+---------+ + + + | Date | Type | Department | Care Team | Description | +--------+---------+ + + + | 07/02/ | Office | [facility] | Fred Oden | Cervical myelopathy | | 2013 | Visit | NEUROSURGERY [address] | [address] | (Primary Dx); | | | | [address] | [address] [place], [place] | Cervical stenosis of | | | | [place] | [address] | spinal canal; | | | | [address] | | Lumbar stenosis; | | | | [phone] | | Facet arthropathy, | | | | | | lumbar | +--------+---------+ + + + Social History [...] + + + | Blood Pressure | 116/72 | 07/02/2012 1:23 PM | | | | | PST | | + + + + + | Pulse | 96 | 07/02/2012 1:23 PM | | | | | PST | | + + + + + | Temperature | - | - | | + + + + + | Respiratory Rate | 18 | 07/02/2012 1:23 PM | | | | | PST | | + + + + + | Oxygen Saturation | - | - | | + + + + + | Inhaled Oxygen | - | - | | | Concentration | | | | + + + + + | Weight | 78.9 kg (174 lb) | 07/02/2012 1:23 PM | | | | | PST | | + + + + + | Height | 157.5 cm (5' 2") | 07/02/2012 1:23 PM | | | | | PST | | + + + + + | Body Mass Index | 31.83 | 07/02/2012 1:23 PM | | | | | PST | | + + + + + documented in this encounter Patient Instructions Patient Instructions Fred Oden PA-C - 07/02/2012 2:44 PM PSTToday we talked ab out your improvement in the your leg and back pain with your ongoing physical therapy. He s tated your left leg pain is 90% improved in her right leg pain has 50% improved. He continu ed to have numbness in both your left hand he her right leg. He still notices some discomfo rt in her upper arms on both sides. He still has some weakness in her deltoid muscle along the right side. We reviewed your her MRIs of both her lumbar spine and your cervical spine. He decided to continue with conservative therapy and physical therapy for both your lumbar spine and your cervical spine. We are planning to see her back in 6 weeks for a repeat esdras luation at that time. You know that if you are getting worse she can call us at any time.El ectronically signed by Fred Oden PA-C at 07/02/2012 2:46 PM PST documented in this encounter Progress Notes Fred Oden PA-C - 07/02/2012 2:58 PM PSTFormatting of this note might be differ ent from the original. ALBER Donaldson [address] [facility], [address] [place] [address] FAX: NEUROSURGERY HISTORY AND PHYSICAL EXAMINATION CHIEF COMPLAINT: Chief Complaint Patient presents with Follow-up HISTORY OF PRESENT ILLNESS: The patient is a 76 y.o. female with the complaint of back and leg pain. The patient was seen a few weeks ago with complaints of his neck and back pain a t that time she was found also have some weakness in her right elbow as well as some upper e xtremity this. She was also found be hyper reflexes in her patellar reflexes. When we saw her last we ordered an MRI of her cervical spine. We also set her up with aggressive physic al therapy for her lower back. The patient has done very well with physical therapy in fact her left leg discomfort is abo ut 90% better. She states that her right leg discomfort is at least 50% better. She's had h ad a total of 3 steroid injections in her back. She still has numbness in both of her legs they are located to the lateral portion of her left leg in her right leg mostly from the kne e down. His numbness/paresthesias seem to come and go. She also had a hypersensitivity to the dorsum of her left foot which is significantly improved since physical therapy. The patient continues to notice some deltoid weakness as well as upper arm discomfort bilat erally. She has not had any particular balance issues. She has not had any bowel or bladde r control issues. PAST MEDICAL HISTORY: Past Medical History Diagnosis [...] cancer, 1 cell, 2 clear CURRENT MEDICATIONS: Current Outpatient Prescriptions on File Prior to Visit Medication Sig Dispense Refill Levothyroxine Sodium 112 MCG CAPS Take 112 mcg by mouth every morning. omeprazole (PRILOSEC) 20 mg capsule Take 20 mg by mouth every morning (before breakfast ). potassium chloride (KLOR-CON 10) 10 MEQ CR tablet Take 10 mEq by mouth Daily. triamterene-hydrochlorothiazide (MAXZIDE-25) 37.5-25 mg per tablet Take 1 tablet by homa th Daily. simvastatin (ZOCOR) 40 mg tablet Take 40 mg by mouth nightly. Cinnamon 500 MG CAPS Take 1,000 mg by mouth every morning. Cholecalciferol (VITAMIN D3) 2000 UNITS CAPS Take 2,000 Units by mouth every morning. brimonidine-timolol (COMBIGAN) 0.2-0.5% ophthalmic solution Place 1 drop into the right eye 2 times daily. ALLERGIES: Allergies Allergen Reactions Food Other (See [...] weight ch anges. EYES: No eye problems, positive for use of corrective lenses, no eye injury, no double vis ion, no blindness. EARS, NOSE, AND THROAT: No changes [...] no rheumatoid arthritis. PHYSICAL EXAMINATION: Blood pressure 116/72, pulse 96, resp. rate 18, height 1.575 m (5' 2"), weight 78.926 kg (1 74 lb). Body mass index is 31.83 kg/(m^2). GENERAL: Cathie Sorenson is in no [...] the L5 levels. To palpation, there is no signficant myofascial tenderness. EXTREMITIES: No cyanosis, clubbing, or edema. Distal pulses are palpable. .NEUROLOGICAL EXAM: MENTAL STATUS: The patient is awake, alert, and oriented. She follows simple and complex commands. She speech is fluent, her comprehends speech well, and her repeats well. She has no apparent deficits with short or continuous churn buttermaker memory. CRANIAL NERVES: II: Acuity is intact. [...] pain limited MUSCLE/ MOVEMENT: RIGHT LEFT Deltoids 4 5 Biceps 4+ 4+ Triceps 4+ 4+ Wrist Flexion 5 5 Wrist Extension 5 5 Median Intrinsics 5 5 Ulnar Intrinsics 5 5 Vibrating Screed Operator Strength 5 5 Hip Flexion 5 5 Hip Extension 5 5 Knee Flexion 5 5 Knee Extension 5 5 Dorsiflexion 5 4 Extensor Hallicus Longus 5 5 Plantarflexion 5 5 SENSORY EXAM: Sensory exam shows no diminished sensation to light touch or pain throughout the upper and lower extremities.although patient does complain of a tingling sensation after the physical exam REFLEXES: (2 OR 2+ IS NORMAL) REFLEX: RIGHT LEFT BICEPS 2 2 BRACHIORADIALIS 2 2 TRICEPS 2 2 PATELLAR 3+ 3 ACHILLES 2 2 DUMAS'S ABSENT ABSENT PLANTAR DOWNGOING DOWNGOING GAIT: Gait is steady. PERIPHERAL NERVE/MISC: Tinel is negative at the wrists and elbows bilaterally. Phalen is negative. Straight leg raise is negative bilaterally. Dannie's test of the hips is negative bilaterally. RADIOGRAPHIC REVIEW: Again reviewed the patient's MRI of her lumbar spine showing only mild stenosis foraminal n arrowing at L5-S1. Patient has degenerative disc disease noted as well as multilevel spinal stenosis and multilevel facet arthropathy. The patient's cervical spine shows degenerative disc disease as well as foraminal stenosis at multiple levels she has some spinal stenosis noted at C4-5, C5-6 and C34 ASSESSMENT: NEUROSURGICAL DIAGNOSES: Encounter Diagnoses Name Primary? Cervical myelopathy Yes Cervical stenosis of spinal canal Lumbar stenosis Facet arthropathy, lumbar GENERAL DIAGNOSES: Past Medical History Diagnosis Date High blood pressure High cholesterol Acid reflux Arthritis Breast cyst PLAN: The patient is clearly pleased that she is improved with her lumbar symptoms although she would like to continue to see improvement yet We did review her MRIs and at this time after discussing the options she has decided to con tinue with conservative therapy I would like to start with flexion and extension views of th e cervical spine. We will continue with physical therapy or lumbar spine but would also lik e her to start physical therapy for her cervical spine as well. If she has worsening sympto ms she will let us know immediately otherwise we will see her back in approximately 6 weeks for a recheck and reevaluation. ELECTRONICALLY SIGNED BY: ALBER Donaldson, 07/02/2012 14:58 documented in this encounter Plan of Treatment + +---------+--------+ + + | Name | Type | Priori | Associated Diagnoses | Order Schedule | | | | ty | | | + +---------+--------+ + + | XR CERVICAL SPINE 4 | Imaging | Routin | Cervical | Ordered: 07/02/2012 | | OR 5 VW | | e | myelopathy Cervical | | | | | | stenosis of spinal | | | | | | canal | | + +---------+--------+ + + + + +--------+ + + | Name | Type | Priori | Associated Diagnoses | Order Schedule | | | | ty | | | + + +--------+ + + | Ambulatory referral | Outpatient | Routin | Cervical | Expected: | | to Physical Therapy | Referral | e | myelopathy Cervical | 07/02/2012, Expires: | | | | | stenosis of spinal | 07/02/2013 | | | | | canal | | + + +--------+ + + documented as of this encounter Visit Diagnoses + + | Diagnosis | + + | Cervical myelopathy (HCC) - Primary Cervical spondylosis with myelopathy | + + | Cervical stenosis of spinal canal Spinal stenosis in cervical region | + + | Lumbar stenosis Spinal stenosis, lumbar region, without neurogenic claudication | + + | Facet arthropathy, lumbar Lumbosacral spondylosis without myelopathy | + + documented in this encounter
--- OUTSIDE RECORDS SUMMARY | ~2020-03-20 | XMS | Encounter Summary ---
Demographics + + + | Address | [address] | | | [place] [address] | + + + | Home Phone [...] Team Providers + +------+ + | Care Canine Service Teacher Name | Role | Phone | + +------+ + | Danna Colunga | PCP | | | PA | | | + +------+ + Encounter Details +--------+ + + + + | Date | Type | Department | Care Team | Description | +--------+ + + + + | 03/20/ | Hospital | [facility] | Ousmane Apodaca MD | | | 2020 | Encounter | [facility] | [address] | | | | | C[address]LO[address] | [place] [address] | | | | | [address] | [phone] | | | | | [place], [place] | | | | | | [address] | Tere, Ck, DO [address] | | | | | [phone] | [address] | | | | | | [place] [address] | | | | | | [phone] | | | | | | | | | | | | Tino Birmingham MD | | | | | | [address] | | | | | | [place] [address] | | | | | | [phone] | | | | | | | | +--------+ + + + [...] + + + | Blood Pressure | 189/79 | 03/22/2020 7:28 AM | | | | | PDT | | + + + + + | Pulse | 85 | 03/22/2020 7:28 AM | | | | | PDT | | + + + + + | Temperature | 36.7 C (98 F) | 03/22/2020 7:28 AM | | | | | PDT | | + + + + + | Respiratory Rate | 16 | 03/22/2020 7:28 AM | | | | | PDT | | + + + + + | Oxygen Saturation | 94% | 03/22/2020 7:28 AM | | | | | PDT | | + + + + + | Inhaled Oxygen | - | - | | | Concentration | | | | + + + + + | Weight | 67.5 kg (148 lb 13 | 03/20/2020 8:09 PM | | | | oz) | PDT | | + + + + + | Height | 157.5 cm (5' 2") | 03/20/2020 8:09 PM | | | | | PDT | | + + + + + | Body Mass Index | 27.22 | 03/20/2020 8:09 PM | | | | | PDT | | + + + + + documented in this encounter Functional Status + + + + | Functional Status | Response | Date of Assessment | + + + + | Are you deaf or do you have serious | Yes | 03/20/2020 | | difficulty hearing? | | | + + + + | Are you blind or do you have serious | Yes | 03/20/2020 | | difficulty seeing, even when wearing | | | | glasses? | | | + + + + | Do you have serious difficulty walking or | No | 03/20/2020 | | climbing stairs? (5 years old or older) | | | + + + + | Do you have difficulty dressing or bathing? | No | 03/20/2020 | | (5 years old or older) | | | + + + + | Because of a physical, mental, or emotional | No | 03/20/2020 | | condition, do you have difficulty doing | | | | errands alone such as visiting a doctor's | | | | office or shopping? [15 years old or | | | | older)] | | | + + + + + + + + | Cognitive Status | Response | Date of Assessment | + + + + | Because of a physical, mental, or emotional | No | 03/20/2020 | | condition, do you have serious difficulty | | | | concentrating, remembering, or making | | | | decisions? (5 years old or older) | | | + + + + documented as of this encounter Progress Notes Sydni Aragon, PT - 03/21/2020 1:15 PM PDT Physical Therapy Initial Evaluation Note Recommended discharge disposition: home with assist Post discharge physical therapy recommendation: outpatient therapy(OP PT/PT ) Equipment Recommendations: (none vs. 4WW pending progress w/BP and balance assessment ) Barriers to community-based discharge Physical Impairment, Level of assistance for ADLs/mobility, Lack of equipment, Lack of soci al support, Home Design, Precautions, Fall risk and BP Recommended Frequency: 5 times/wk for 7 days with reassessment due by 03/28/20 Summary: Upon PT arrival, patient seated in recliner. PT advised to patient that she shou ld not drive d/t CVA and patient verb understanding. She is aware that her family needs to drive her until she can receive formal vision/driving assessment. Patient verb that she was not interested in IRF, indicating, "The sooner I can go home the better." This was even af ter PT educated patient on importance of further vision/cog/safety d/t her living alone. PT recommending to patient to have dtr stay w/her for at lest 2 days upon dc to ensure safety. Patient verb understanding. Patient agreeable to PT. Patient Ox4 and clarified that she did not have expressive issues when her medical event happend, she had issues w/RUE fine mot or when she was texting her dtr. She confirmed w/her dtr today that she was able to talk to her yesterday, she only had issues w/her RUE feeling shaky. Patient though also indicates ambiguous statements w/hx of bilateral shoulder injuries and never compression that have pro mpted a lack in functional ROM where she has had to use one hand to assist the other hand. Patient normally lives alone w/2STE. She indicates that she plans on asking her CAR to inst all railings. Patient demonstrating nystagmus of L eye and decreased smoothness when tracki ng w/L>Kathryn, this improved w/practice. Patient also struggling w/identifying PT's fingers c orrectly on the L eye 3 times. 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 Patient amb to bathroom 20ft w/PT SBA w/o LOB noted and performed toileting tasks w/SBA. Upon return to standing in front of recliner, patient's SBP 210 and PT assessed again w/same result. RN notified . RN ella be that patient is cleared w/mob until 220 d/t allowing permissable hypertension. PT only a mb patient to doorway in room w/4WW to avoid increaed stress ~50ft SBA, though PT deferred f urther balance and stairs d/t BP excessively high. Patient seated in recliner in room @ end of PT. Call light within reach to verb needs. Precautions Precaution Comment: monitor BP Precautions/Limitations: falls Left Upper Extremity Weight-Bearing: (hx of shoulder injuries and nerve impingement ) Right Upper Extremity Weight-Bearing: (hx of shoulder injuries and nerve impingement ) Cognitive Assessment Cognitive Comments: answered questions appropriately, though oddly acted like she did not k now that she had a CVA, may benefit from formal cog testing and home safety assessment d/t p atient living alone Orientation: person, place, time, situation Bed Mobility Bed Mobility Comments: seated in recliner upon PT arrival at start and end of PT Transfers Transfers Comments: min-SBA Gait Gait Comments: has NISHA at home, BP too elevated to assess steps this session Level of [place]: minimal assist (75% patient effort) Assistive Device: none, 4 wheeled walker (4WW) Distance (feet): 20, 50 Additional Documentation: pattern, deviations, safety, impairments Gait Deviations: chanell decreased Safety Issues: step length decreased Goals Reflects last filed data and may be from multiple contributors. All Bed Mobility Goal Most Recent Value LTG Status new at 03/21/2020 1315 LTG [place] Level modified independent at 03/21/2020 1315 LTG Assistive Device none at 03/21/2020 1315 All Transfers Goal Most Recent Value LTG Status new at 03/21/2020 1315 LTG [place] Level modified independent at 03/21/2020 1315 LTG Assistive Device none at 03/21/2020 1315 Gait Goal Most Recent Value LTG Status new at 03/21/2020 1315 LTG [place] Level supervised, modified independent at 03/21/2020 1315 LTG Assistive Device none at 03/21/2020 1315 Stair Goal Most Recent Value LTG Status new at 03/21/2020 1315 LTG [place] Level supervised, modified independent at 03/21/2020 1315 LTG Assistive Device 2 rails at 03/21/2020 131 LTG Number of Stairs 3 at 03/21/2020 1315 PT Time Calculation Individual Start Time: 1315 Individual Stop Time: 1408 Individual Total Time: 53 PT Total Treatment Time: 53 Tino Eastman MD - 03/21/2020 10:27 AM PDTFormatting of this note might be different fro m the original. [facility] Adult Hospitalist Progress Note Hospital Day: 1 Cathie Kena Delta Patient Summary: The patient is a 84 y.o. female with significant past medical history of Gout, HTN, HLD, hy pothyroidism, and cancer who presents with expressive aphasia earlier in the day. Patient is Independent and lives alone, able to take care of her ADLs. Patient is currently AAOx4. Kay trejo reports that she woke up this morning and felt off. She went to call her daughter but w as having trouble remembering how to use her cell phone and was not able to express herself. Patient denies any weakness, slurred speech, facial droop or new weakness. Patient presente d to the [facility] for evaluation. Labs were for the most part unremarkable, CXR as negative for any acute disease. CTA head a nd neck showed 80-85% stenosis of the right ICA, however no intracranial occulusion. Dr. Comer was contacted with [facility] and agreed to consult on patient. Patient was transferred to [facility] for further evaluation. SUBJECTIVE Feels fine now. Denies any symptoms OBJECTIVE Vital Signs: BP 152/70 | Pulse 76 | Temp 36.4 C (97.6 F) (Oral) | Resp 20 | Ht 1.575 m (5' 2") | Wt 67.5 kg (148 lb 13 oz) | SpO2 93% | BMI 27.22 kg/m Physical Exam Physical Exam: Constitutional: Alert and oriented to person, place, and time. PLEASANT ELDERLY FEMALE IN B ED NO DISTRESS HEENT: Neck supple, no JVD, non icteric sclera. Cardiovascular: Normal rate, regular rhythm, normal heart sounds with S1 and S2, Exam re veals Pulmonary/Chest: Effort normal and breath sounds normal. No stridor. No respiratory distres s. no wheezes. no rales. exhibits no tenderness. Abdominal: Soft. Bowel sounds are normal. exhibits no distension and no palpable mass. Ther e is no tenderness. There is no rebound and no guarding. Extremeties/Musculoskeletal: Normal range of motion.exhibits no tenderness. exhibits no ed areli. Neurological: Alert and oriented to person, place, and time. FOLLOWS COMMANDS PERRLA MOTOR INTACT REFLEXES NML Skin: Skin is warm and dry. PALE Psychiatric: Has a normal mood and affect. MEDS Scheduled Meds: aspirin 325 mg Oral Daily Or aspirin 300 mg Rectal Daily brimonidine-timolol 1 drop Right Eye BID cycloSPORINE 1 drop Both Eyes BID digoxin 125 mcg Oral Daily latanoprost 1 drop Right Eye Nightly levothyroxine 100 mcg Oral QAM AC pravastatin 80 mg Oral Daily Continuous Infusions: PRN Meds:.docusate sodium, labetalol, ondansetron, polyethylene glycol DATA Recent Labs Lab 03/21/20420 INR 1.0 Recent Labs Lab 03/21/20420 WBC 8.16 HGB 12.6 HCT 39.5 PLT 185 NA 142 K 3.7 CL 110* CO2 26 BUN 12 EGFR >60 CALCIUM 8.7 ANIONGAP 10 MG 2.0 No results for input(s): TROPONINT, CKMB in the last 168 hours. Invalid input(s): CKTOTAL, TROPONINI, CKMBINDEX, PCOTNI No results for input(s): CLARITYU, LEUKOCYTESUR, UROBILINOGEN, PHUR, BLOODU, KETONES, BILIR UBINUR, GLUCOSEU, RBCU, BACTERIA, COMU in the last 168 hours. Invalid input(s): UCOL, SPECGRAV, NITRITE, UPRO Mri Brain Wo Mra Head Wo Result Date: 03/21/2020 1. Few tiny scattered punctate acute infarcts in the watershed zones of the bilateral AVERY/ MCA and MCA/ULTRASONOGRAPHER territories and few tiny punctate infarcts in the right cerebellum likely newell ggesting embolic infarcts. 2. No acute intracranial hemorrhage, cerebral edema pathological mass effect. Other chronic intracranial findings as described above. 3. No flow limiting intracranial arterial stenosis or aneurysm. Final Report Signed by: Jaclyn Javier, Jessica Sign Date/Time: 03/21/2020 12:26 AM PROBLEM LIST Principal Problem: Acute CVA (cerebrovascular accident) Active Problems: High blood pressure High cholesterol Arthritis Hypothyroidism Stenosis of right carotid artery IMPRESSION/PLAN: Stroke - with Right ICA STENOSIS MRI showing scattered punctate lesions in watershed zones of AVERY/MCA, MCA/ULTRASONOGRAPHER and Cerebellu m. Appear to be emboic. Right ICA occlucsion. Dr Comer vascular consutled Consulted neuro Dr Andrews. - Aspirin, Pravistatin - Tele - Neuro-checks - PT/OT/ST - Permissive HTN - Echo pending LDL 57, TC 124, TG 121 Hypertension - clinically stable, allowing for permissive HTN - holding lisinopril - monitor bp closely - Labetalol PRN HLD - currently on Simvistatin changed to Pravastatin 80 mg qhs Hypothyroidism - Continue levothyroxine for now DVT prophylaxis - holding lovenox for now. - SCD. Patient's old records and labs were reviewed in detail. Tino Birmingham MD 10:27 AM PDT 03/21/2020 documented in this encou nter H&P Notes Ck Carranza, DO - 03/20/2020 10:34 PM PDTFormatting of this note might be different from th e original. [facility] Service: Hospitalist Admission History & Physical Pt: Cathie Villanuevaricia Delta AGE/SEX: 84 y.o. female ROOM: 6602/6602-01 PCP: ALBER Rand : 1935 TODAY'S DATE: 03/21/2020 Date of Admission: 03/20/2020 Chief Complaint: Expressive Aphasia History of Present Illness: The patient is a 84 y.o. female with significant past medical history of Gout, HTN, HLD, hy pothyroidism, and cancer who presents with expressive aphasia earlier in the day. Patient is Independent and lives alone, able to take care of her ADLs. Patient is currently AAOx4. Kay trejo reports that she woke up this morning and felt off. She went to call her daughter but w as having trouble remembering how to use her cell phone and was not able to express herself. Patient denies any weakness, slurred speech, facial droop or new weakness. Patient presente d to the [facility] for evaluation. Labs were for the most part unremarkable, CXR as negative for any acute disease. CTA head a nd neck showed 80-85% stenosis of the right ICA, however no intracranial occulusion. Dr. Comer was contacted with [facility] and agreed to consult on patient. Patient was transferred to [facility] for further evaluation. PMHx: Past Medical History: Diagnosis Date Acid reflux Arthritis Benign neoplasm of large intestine Breast cyst Cancer (HCC) Colon, diverticulosis Congenital glaucoma with Chamber Angle Anormalies Gout High blood pressure High cholesterol Hypothyroidism Lumbago Lumbar neuritis Osteoarthritis Osteopenia Spinal stenosis, site unspecified Thoracic neuritis Thyroid disease Thyroidectomy Undiagnosed cardiac murmurs PSHx: Past Surgical History: Procedure Laterality Date APPENDECTOMY Breast Lump removal 03/1996 and 04/2001 Left Side both times CATARACT REMOVAL Left 05/2015 CATARACT REMOVAL 01/2012 Cataract extraction with trabeculectomy CERVICAL POLYP REMOVAL 04/2002 COLONOSCOPY 01/2006 1 cancer, 1 cell, 2 clear EYE SURGERY HYSTERECTOMY 12/2009 LAPAROSCOPY 06/2002 Polyp removal OVARY SURGERY December 1965 2/3 of each ovary THYROID SURGERY 10/1997 Removed Prior To admission Meds: Prior to Admission medications Medication Sig Start Date End Date Taking? Authorizing Provider aspirin 325 mg tablet Take 325 mg by mouth Daily. Yes Historical Provider, brimonidine-timolol (COMBIGAN) 0.2-0.5% ophthalmic solution Place 1 drop into the right eye 2 times daily. Yes Historical Provider, Cholecalciferol (VITAMIN D3) 2000 UNITS CAPS Take 2,000 Units by mouth every morning. Y es Historical Provider, Cinnamon 500 MG CAPS Take 1,000 mg by mouth every morning. Yes Historical Provider, digoxin (LANOXIN) 125 mcg tablet Take 125 mcg by mouth Daily. Yes Historical Provider, gabapentin (NEURONTIN) 100 mg capsule Take 200 mg by mouth nightly . 01/14/20 Historical Nelia patino MD levothyroxine (SYNTHROID) 100 mcg tablet Take 100 mcg by mouth Daily. 12/25/19 Yes Historica l ProviderMD lisinopril (PRINIVIL, ZESTRIL) 20 mg tablet Take 20 mg by mouth Daily. Yes Historical Pro viderMD omeprazole (PRILOSEC) 20 mg capsule Take 20 mg by mouth every morning (before breakfast). Yes Historical Provider, RESTASIS 0.05 % ophthalmic emulsion instill 1 drop into both eyes twice a day 01/23/20 Yes Historical Provider, simvastatin (ZOCOR) 40 mg tablet Take 40 mg by mouth nightly. Yes Historical Provider, travoprost (TRAVATAN) 0.004% ophthalmic solution Place 1 drop into the right eye nightly. Yes Historical Provider, Medications scheduled: aspirin 324 mg Oral Once Or aspirin 300 mg Rectal Once aspirin 325 mg Oral Daily Or aspirin 300 mg Rectal Daily brimonidine-timolol 1 drop Right Eye BID cycloSPORINE 1 drop Both Eyes BID digoxin 125 mcg Oral Daily latanoprost 1 drop Right Eye Nightly levothyroxine 100 mcg Oral Daily lisinopril 20 mg Oral Daily pravastatin 80 mg Oral Daily Allergies: Allergies Allergen Reactions Eucalyptamint Maximum Strength [Menthol] Shortness Of Breath Food Other (See Comments) Artifical Sweetner Splenda, stinging mouth, slufffing of the mouth. Diet Drinks Allopurinol Unknown Lipitor [Atorvastatin] Unknown Tricor [Fenofibrate] Unknown Family Hx: Family History Problem Relation Age of Onset No known problems Father Stroke Mother No known problems Brother No known problems Child No known problems Child Cancer Maternal Aunt Cancer Maternal Grandmother Malig hyperten Maternal Grandmother Cancer Maternal Grandfather Malig hyperten Maternal Grandfather Malig hyperten Paternal Grandmother Malig hyperten Paternal Grandfather Social Hx: Social History Tobacco Use Smoking status: Never Smoker Smokeless tobacco: Never Used Substance Use Topics Alcohol use: Not Currently Alcohol/week: 0.0 standard drinks Comment: Rarely Review of Symptoms: Constitutional: Negative for fever, chills, diaphoresis, activity change, appetite change, fatigue and unexpected weight change. HENT: Negative for hearing loss, ear pain, nosebleeds, congestion, facial swelling, rhinorr hea, neck pain, neck stiffness, dental problem, tinnitus and ear discharge. Eyes: Negative for photophobia, pain, discharge, redness, itching and visual disturbance. Respiratory: Negative for apnea, cough, chest tightness, shortness of breath and wheezing. Cardiovascular: Negative for chest pain, palpitations and leg swelling. Gastrointestinal: Negative for nausea, vomiting, abdominal pain, diarrhea, constipation, bl ood in stool, abdominal distention, anal bleeding and rectal pain. Genitourinary: Negative for dysuria, frequency, hematuria, flank pain, difficulty urinating and dyspareunia. Musculoskeletal: Negative for back pain, joint swelling, arthralgias and gait problem. Skin: Negative for color change, pallor, rash and wound. Neurological: Negative for dizziness, tremors, seizures, syncope, weakness, light-headednes s, numbness and headaches. Admits to confusion. Hematological: Negative for adenopathy. Does not bruise/bleed easily. Psychiatric/Behavioral: Negative for suicidal ideas, hallucinations, behavioral problems, c onfusion and agitation. Objective: Vital Signs: BP 127/60 | Pulse 74 | Temp 36.7 C (98.1 F) (Oral) | Resp 18 | Ht 1.575 m (5' 2") | Wt 67.5 kg (148 lb 13 oz) | SpO2 95% | BMI 27.22 kg/m Physical Exam: Constitutional: Oriented to person, place, and time. appears well-developed and well-nouris hed. HEENT: Head: Normocephalic and atraumatic. [place] of hearing Nose: Nose normal. Mouth/Throat: Oropharynx is clear and moist. Eyes: Conjunctivae and EOM are normal. Pupils are equal, round, and reactive to light. Righ t eye exhibits no discharge. Left eye exhibits no discharge. No scleral icterus. Neck: Normal range of motion. Neck supple. No JVD present. No tracheal deviation present. N o thyromegaly present. no cervical adenopathy. Cardiovascular: Normal rate, regular rhythm, normal heart sounds with S1 and S2, and intact distal pulses. Exam reveals no gallop and no friction rub. No murmur heard. Pulmonary/Chest: Effort normal and breath sounds normal. No stridor. No respiratory distres s. no wheezes. no rales. exhibits no tenderness. Abdominal: Soft. Bowel sounds are normal. exhibits no distension and no mass. There is no t enderness. There is no rebound and no guarding. Extremities/Musculoskeletal: Normal range of motion.exhibits no tenderness. exhibits no ed areli. Neurological: Alert and oriented to person, place, and time. Has normal reflexes. display s normal reflexes. No cranial nerve deficit. Exhibits normal muscle tone. Coordination norm al. Skin: Skin is warm and dry. No rash noted. No erythema. No pallor. Psychiatric: Has a normal mood and affect. Behavior is normal. Judgment normal. Data: CBC: No results found for: WBC, RBC, HGB, HCT, MCV, MCH, MCHC, RDW, PLT, MPV, DIFFTYPE CMP: No results found for: NA, K, CL, CO2, ANIONGAP, GLUF, BUN, CREATININE, ALB, GLOB, AGR ATIO, BILITOT, AST, ALT, EGFR IMAGING: Mri Brain Wo Mra Head Wo Result Date: 03/21/2020 MRI BRAIN WITHOUT CONTRAST; MRA BRAIN WITHOUT CONTRAST CLINICAL INFORMATION: Headache and d izziness. COMPARISON: None PROCEDURE: MRI Brain: Sagittal T1, axial FLAIR, axial T2, axial T 1, axial gradient susceptibility, coronal T2, axial DWI. MRA Brain: 3-D [id number] MRA w ith MIP reformations. FINDINGS: MRI Brain: Brain: Few scattered small areas of restricted di ffusion in the watershed zones of the bilateral AVERY/MCA and MCA/ULTRASONOGRAPHER territories. Few tiny p unctate infarcts in the right cerebellum. No evidence of acute hemorrhage. No midline shif t. Basal cisterns are patent. Mild diffuse age related volume loss and few FLAIR hyperinte nse foci in the periventricular subcortical white matter likely sequelae of chronic microvas cular ischemic gliosis. Ventricles and extra-axial fluid spaces: Normal. Sella, suprasellar cistern, and orbits: No sellar suprasellar mass. Evidence of cataract surgery on the left si de. No acute orbital abnormality. Calvarium and extracranial soft tissues: Normal. Paranasa l sinuses and mastoid air cells: Normal. MRA Brain: Intracranial segments of the internal ca rotid arteries: Normal. Middle cerebral arteries and major MCA branch vessels: Normal. Anter ior cerebral arteries and anterior communicating artery: Normal. Intracranial segments of th e vertebral arteries and basilar artery: Normal. Posterior cerebral arteries: Normal. right ULTRASONOGRAPHER noted. 1. Few tiny scattered punctate acute infarcts in the watershed zones of the bilateral AVERY/ MCA and MCA/ULTRASONOGRAPHER territories and few tiny punctate infarcts in the right cerebellum likely newell ggesting embolic infarcts. 2. No acute intracranial hemorrhage, cerebral edema pathological mass effect. Other chronic intracranial findings as described above. 3. No flow limiting intracranial arterial stenosis or aneurysm. Final Report Signed by: Jaclyn Javier, Jessica Sign Date/Time: 03/21/2020 12:26 AM Problem List: Principal Problem: Acute CVA (cerebrovascular accident) Active Problems: High blood pressure High cholesterol Arthritis Hypothyroidism Stenosis of right carotid artery Assessment and Plan: Stroke - MRI showing scattered punctate lesions in watershed zones of AVERY/MCA, MCA/ULTRASONOGRAPHER and Cerebellum. Appear to be emboic. No hx of arrhythmia. No evidence of infection. Right ICA oc clucsion. Possible Atrial fibrillation? - Admit to inpatient - Aspirin, Pravistatin - Tele - Neuro-checks - PT/OT/ST - Permissive HTN - Echo - Will need neuro consult in am. - Will get EKG - Lipid panel/A1c Hypertension - clinically stable, allowing for permissive HTN - holding lisinopril - monitor bp closely - Labetalol PRN HLD - currently on Simvistatin - will change to Pravistatin Hypothyroidism - check TSH - Continue levothyroxine for now DVT prophylaxis - holding lovenox for now. - SCD. Patient's old records and labs were reviewed in detail. Code Status: Full Code Primary Care Physician: ALBER Rand DO 03/21/2020 3:52 AM PDT documented in this encoun ter Miscellaneous Notes Plan of Vicente Beltran RN - 03/22/2020 5:09 AM PDTPatient A&O times 4. Patient vit al signs stable. No complaints of pain. Patients neuro checks have all been WDL. No changes since initial assessment. 24 hour chart check and shift review complete. Vicente Orozco RN lan of Vicente eBltran RN - 03/22/2020 12:56 AM PDT Problem: Adult Inpatient Plan of Care Goal: Optimal Comfort and Wellbeing Outcome: Ongoing, progressing Intervention: Provide Person-Centered Care Flowsheets (Taken 03/22/2020 0054) Trust Relationship/Rapport: care explained questions encouraged questions answered thoughts/feelings acknowledged Problem: Fall Injury Risk Goal: Absence of Fall and Fall-Related Injury Outcome: Ongoing, progressing Intervention: Identify and Manage Contributors to Fall Injury Risk Flowsheets (Taken 03/22/2020 0054) Self-Care Promotion: BADL personal objects within reach BADL personal routines maintained meal setup provided safe use of adaptive equipment encouraged lan of Care - Emmy Rucker RN - 03/21/2020 3:29 PM PDTCare Management Initial Assessment Readmission Risk: Medium Status Prior to Admission or Illness Arrival From: admitted as an inpatient Lives With: alone Living Arrangements: house Caregiver For: no one Functional Status: pt is independent with ADL's and uses no DME at baseline Home Accessibility: stairs to enter home Transportation Available: family or friend will provide Able to return to prior living: yes Care Management Concerns Readmission Within Last 30 Days: no previous admission in last 30 days PCP: ALBER Rand Contact Information Family Contact Information: Name: Bhavana Ulloa(daughter/POA) [place] Needs Assessment Current Outpt/Agency/Support Groups: none Anticipated Changes Related to Illness: none Concerns to be Addressed: no discharge needs identified Services Anticipated at Discharge: none Equipment Used at Home: none Durable Medical Equipment Provider: none Pharmacy/Medication Needs: ([facility], [place]) Transportation Needs: family or friend will provide Initial Plan Anticipated Discharge Disposition: home Expected DC Date: TBD Steps Taken Toward Discharge: Initial admission assessment Next Steps: CM will continue to follow for discharge planning Electronically signed: Emmy Campuzano RN 03/21/2020 3:29 PM PDT lan of Roseline Barrett RN - 03/21/2020 11:54 AM PDT Problem: Adult Inpatient Plan of Care Goal: Plan of Care Review Outcome: Ongoing, progressing Nirav Bateman updated @1155. Pt's neuro checks WDL, no neuro symptoms. Pt SBA in room, fall precautions in place. Pt upd ated on plan, verbalized understanding. High BPs, permissive HTN order. lan of Hilaria - Ruma Dodge V Speech Pathologist - 03/21/2020 1 0:15 AM PDT Speech Therapy Bedside Swallow Initial Evaluation Note Swallow Recommendations Recommended Solid Texture: regular (RG7) Recommended Liquid Texture: thin liquids (TN0) Recommended Medication Delivery: whole pills with thin liquids Recommended Feeding/Eating Techniques: alternate between small bites and sips of food/liqui d, check mouth frequently for oral residue/pocketing, monitor for signs of aspiration, singl e sips, one small sip or bite at a time, slow rate, pacing, limit distractions Summary: Pt seen for bedside swallow eval. Pt eating regular diet with thin liquids at [facility]. Pt tolerated tials well with no over s/sx of aspiration. Recommend regular diet wit thin liquids and aspiration precautions. ST to discharge. Please re order ST if further concerns arise. Recommended discharge disposition: other (see comments)(TBD) Post discharge speech language pathology recommendation: re-evalulate at next level of care Planned Interventions: other (see comments)(Discharge) Education Completed Dysphagia: Explain results of session, speech-language pathology role, plan of care, most s afe diet and swallow precautions Learners: Patient Readiness: Acceptance Method: Explanation Response: Verbalizes Understanding Dysphagia Goal Most Recent Value LTG Status new, met at 03/21/2020 1015 LTG Pt will tolerate LRD at 03/21/2020 1015 MDS COORDINATOR Time Calculation MDS COORDINATOR Individual Start Time: 1015 MDS COORDINATOR Individual Stop Time: 1030 MDS COORDINATOR Individual Total Time: 15 MDS COORDINATOR Total Treatment Time: 15 10: 31 AM PDTPlan of Aura Yi RN - 03/21/2020 5:38 AM PDTEnd of shift note: Patient admitted from [facility] at shift change. Patient did not have any deficits on a ssessment. Bedside swallow passed. Patient assessment almost entirely benign. Very hard of h earing. Chart review complete. Problem: Adult Inpatient Plan of Care Goal: Plan of Care Review Outcome: Ongoing, progressing Plan of care reviewed with patient, all questions answered. Goal: Optimal Comfort and Wellbeing Outcome: Ongoing, progressing Interruptions minimized, care clustered, and rest promoted. Problem: Fall Injury Risk Goal: Absence of Fall and Fall-Related Injury Outcome: Ongoing, progressing Patient calls appropriately. No falls this shift. Aura Yanes RN documented in this en counter Plan of Treatment + + +--------+ + + | Name | Type | Priori | Associated Diagnoses | Order Schedule | | | | ty | | | + + +--------+ + + | Oxygen Therapy | Respiratory | Routin | | Until Discontinued | | | Care | e | | until discontinued | | | | | | starting 03/20/2020 | + + +--------+ + + | Oxygen Therapy | Respiratory | Routin | | Until Discontinued | | | Care | e | | until discontinued | | | | | | starting 03/20/2020 | + + +--------+ + + | POCT Glucose | Point of | Routin | | 4X Daily (AC & HS) | | | Care | e | | until discontinued | | | Testing | | | starting 03/20/2020 | + + +--------+ + + documented as of this encounter Procedures The patient is currently admitted. The information in this section might not be complete un til the patient is discharged. + +--------+ + + + | Procedure Name | Priori | Date/Time | Associated Diagnosis | Comments | | | ty | | | | + +--------+ + + + | CORONAVIRUS | Routin | 03/21/2020 | | Results for this | | (COVID-19) NAAT | e | 5:06 PM | | procedure are in the | | | | PDT | | results section. | + +--------+ + + + | ECHO COMPLETE | Routin | 03/21/2020 | | Results for this | | | e | 8:33 AM | | procedure are in the | | | | PDT | | results section. | + +--------+ + + + | ECG 12 LEAD | Routin | 03/21/2020 | | Results for this | | | e | 4:27 AM | | procedure are in the | | | | PDT | | results section. | + +--------+ + + + | LIPID PANEL | Routin | 03/21/2020 | | Results for this | | | e | 4:21 AM | | procedure are in the | | | | PDT | | results section. | + +--------+ + + + | PROTIME INR | Routin | 03/21/2020 | | Results for this | | | e | 4:21 AM | | procedure are in the | | | | PDT | | results section. | + +--------+ + + + | CBC WITH | Routin | 03/21/2020 | | Results for this | | DIFFERENTIAL | e | 4:21 AM | | procedure are in the | | | | PDT | | results section. | + +--------+ + + + | TSH | Routin | 03/21/2020 | | Results for this | | | e | 4:21 AM | | procedure are in the | | | | PDT | | results section. | + +--------+ + + + | MAGNESIUM | Routin | 03/21/2020 | | Results for this | | | e | 4:21 AM | | procedure are in the | | | | PDT | | results section. | + +--------+ + + + | BASIC METABOLIC | Routin | 03/21/2020 | | Results for this | | PANEL | e | 4:21 AM | | procedure are in the | | | | PDT | | results section. | + +--------+ + + + | MRI BRAIN WO | Routin | 03/20/2020 | | Results for this | | CONTRAST ANGIOGRAM | e | 11:06 PM | | procedure are in the | | HEAD WO CONTRAST | | PDT | | results section. | + +--------+ + + + | POC GLUCOSE (NON | Routin | 03/20/2020 | | Results for this | | ORD) | e | 10:18 PM | | procedure are in the | | | | PDT | | results section. | + +--------+ + + + documented in this encounter Results Coronavirus (COVID-19) NAAT (03/21/2020 5:06 PM PDT) + + + + + + | Component | Value | Ref Range | Performed | Pathologist | | | | | At | Signature | + + + + + + | SARS-CoV-2, | NEGATIVEComment: This | NEG | [facility] | | | NAAT | test was developed and | | LABORATORY | | | (COVID-19) | its performance | | | | | | characteristics | | | | | | determined byCepheid. It | | | | | | has not been cleared or | | | | | | approved by the [place] FDA. | | | | | | This test has | | | | | | beenauthorized by FDA | | | | | | under an Emergency Use | | | | | | Authorization (EUA). | | | | | | Clinicians shouldbe | | | | | | advised to consider a | | | | | | patients signs, | | | | | | symptoms, history, and | | | | | | results ofother | | | | | | diagnostic tests when | | | | | | interpreting | | | | | | results.Testing | | | | | | performed at [facility] | | | | | | [facility];[place], [place] | | | | | | [address] | | | | + + + + + + + + | Specimen | + + | Tissue - Entire | | nasopharynx (body | | structure) | + + + + + + + | Performing | Address | City/State/Zipcode | Phone Number | | Organization | | | | + + + + + | [facility] | [address] | [place] [address] | [phone] | + + + + + ECHO Complete (03/21/2020 8:33 AM PDT) + +--------+ + + + | Component | Value | Ref Range | Performed | Pathologist | | | | | At | Signature | + +--------+ + + + | LVEF-TTE | 75 | % | [facility] | | | TRANSTHORAC | | | | | | IC ECHO | | | | | + +--------+ + + + | RA PRESSURE | 8 | mmHg | [facility] | | + +--------+ + + + | LVIDd | 3.4 | cm | [facility] | | + +--------+ + + + | FS | 43 | % | [facility] | | + +--------+ + + + | LA volume | 56.58 | mL | [facility] | | + +--------+ + + + | Ascending | 2.99 | cm | [facility] | | | aorta | | | | | + +--------+ + + + | AV mean | 4.41 | mmHg | [facility] | | | gradient | | | | | + +--------+ + + + | Aortic | 2.14 | cm2 | [facility] | | | Valve Area | | | | | | by | | | | | | Continuity | | | | | | VTI | | | | | + +--------+ + + + | MV Area by | 1.88 | cm2 | [facility] | | | P 1/2 | | | | | | method | | | | | + +--------+ + + + | PV peak | 5.69 | mmHg | [facility] | | | gradient | | | | | + +--------+ + + + | LVOT | 1.83 | cm | [facility] | | | diameter | | | | | + +--------+ + + + | LVOT peak | 131.7 | cm/s | [facility] | | | tiffanie | | | | | + +--------+ + + + | LVOT peak | 25.77 | cm | [facility] | | | VTI | | | | | + +--------+ + + + | AV peak tiffanie | 142.22 | cm/s | [facility] | | + +--------+ + + + | AV VTI | 31.67 | cm | [facility] | | + +--------+ + + + | AV peak | 8.09 | mmHg | [facility] | | | gradient | | | | | + +--------+ + + + | TV peak | 1.5 | mmHg | [facility] | | | gradient | | | | | + +--------+ + + + | PV mean | 3.08 | mmHg | [facility] | | | gradient | | | | | + +--------+ + + + | MV Pressure | 117.06 | msec | [facility] | | | 1/2 time | | | | | + +--------+ + + + | LA Volume | 34 | mL/m2 | [facility] | | | Index | | | | | + +--------+ + + + | AV LVOT | 6.94 | mmHg | [facility] | | | Peak | | | | | | Gradient | | | | | + +--------+ + + + | AV LVOT | 3.8 | mmHg | [facility] | | | Mean | | | | | | Gradient | | | | | + +--------+ + + + | PI Peak | 119.27 | cm/s | [facility] | | | Velocity | | | | | + +--------+ + + + | LV | 7.03 | cm | [facility] | | | Diastolic | | | | | | Length 4C | | | | | + +--------+ + + + | RV | 2.27 | cm | [facility] | | | Diastolic | | | | | | Basal | | | | | | Diameter | | | | | + +--------+ + + + | LV | 78 | % | [facility] | | | Grace's | | | | | | Biplane EF | | | | | + +--------+ + + + | LV ED | 46.16 | ml | [facility] | | | Volume | | | | | | (Grace's) | | | | | + +--------+ + + + | LV ED | 27 | ml/m2 | [facility] | | | Volume | | | | | | Index | | | | | + +--------+ + + + | LV ES | 10.15 | ml | [facility] | | | Volume | | | | | + +--------+ + + + | LVOT Mean | 88.5 | cm/s | [facility] | | | Velocity | | | | | + +--------+ + + + | MV | 401.97 | msec | [facility] | | | Deceleratio | | | | | | n Time | | | | | + +--------+ + + + | MV E/A | 0.69 | | [facility] | | | Ratio | | | | | + +--------+ + + + | MV Peak | 167.98 | cm/s | [facility] | | | A-Wave | | | | | + +--------+ + + + | MV Peak | 115.4 | cm/s | [facility] | | | E-Wave | | | | | + +--------+ + + + | TV | 390.54 | msec | [facility] | | | Deceleratio | | | | | | n Time | | | | | + +--------+ + + + | TV Peak | 76.93 | cm/s | [facility] | | | A-Wave | | | | | + +--------+ + + + | TV Peak | 61.26 | cm/s | [facility] | | | E-Wave | | | | | + +--------+ + + + | PV Mean | 82.43 | cm/s | [facility] | | | Velocity | | | | | + +--------+ + + + | AV Mean | 97.33 | cm/s | [facility] | | | Velocity | | | | | + +--------+ + + + | RA Area | 14.3 | cm2 | [facility] | | + +--------+ + + + | LA/Aorta | 1.02 | | [facility] | | | Ratio | | | | | + +--------+ + + + | LA Area | 18.99 | cm2 | [facility] | | + +--------+ + + + | LA Major | 0.3167 | cm | [facility] | | + +--------+ + + + | LV ES | 6 | ml/m2 | [facility] | | | Volume | | | | | | Index | | | | | + +--------+ + + + | Cardiac | 5.49 | l/min | [facility] | | | Output | | | | | + +--------+ + + + | Cardiac | 3.27 | l/min/m2 | [facility] | | | Index | | | | | + +--------+ + + + | Vitals | 81 | | [facility] | | | Heart Rate | | | | | | Rest | | | | | + +--------+ + + + | Vitals BP | 152 | | [facility] | | | Systolic | | | | | + +--------+ + + + | Vitals BP | 70 | | [facility] | | | Diastolic | | | | | + +--------+ + + + | Vitals | 157.5 | | [facility] | | | Height | | | | | + +--------+ + + + | Vitals | 67.50 | | [facility] | | | Weight | | | | | + +--------+ + + + | Aortic Root | 3.13 | cm | [facility] | | | Diameter | | | | | + +--------+ + + + | IVS | 1.4 | cm | [facility] | | | Diastolic | | | | | | Thickness | | | | | | MM | | | | | + +--------+ + + + | LVPW | 1.61 | cm | [facility] | | | Diastolic | | | | | | Thickness | | | | | | MM | | | | | + +--------+ + + + | IVS | 1.45 | cm | [facility] | | | Systolic | | | | | | Thickness | | | | | | MM | | | | | + +--------+ + + + | LV Systolic | 1.95 | cm | [facility] | | | Diameter | | | | | | MM | | | | | + +--------+ + + + | LVPW | 2.25 | cm | [facility] | | | Systolic | | | | | | Thickness | | | | | | MM | | | | | + +--------+ + + + | AV Cusp | 1.79 | cm | [facility] | | | Seperation | | | | | | MM | | | | | + +--------+ + + + | LA Systolic | 3.18 | cm | [facility] | | | Diameter | | | | | | MM | | | | | + +--------+ + + + | TAPSE | 2.19 | cm | [facility] | | + +--------+ + + + + + | Specimen | + + | | + + + + + | Narrative | Performed At | + + + | Normal left | [facility] | | ventricular size, severe concentric hypertrophy and hyperdynamic | | | systolic function EF > 70%.Normal right ventricular size and | | | function.No significant valvular pathology. Normal-appearing | | | pericardium. | | | | | + + + + +---------+ + + | Performing | Address | City/State/Zipcode | Phone Number | | Organization | | | | + +---------+ + + | [facility] | | | | + +---------+ + + ECG 12 lead (03/21/2020 4:27 AM PDT) + + + + + + | Component | Value | Ref Range | Performed | Pathologist | | | | | At | Signature | + + + + + + | VENTRICULAR | 70 | BPM | [facility] | | | RATE EKG | | | | | + + + + + + | ATRIAL RATE | 70 | BPM | [facility] | | + + + + + + | P-R | 206 | ms | [facility] | | | INTERVAL | | | | | + + + + + + | QRS | 98 | ms | [facility] | | | DURATION | | | | | + + + + + + | Q-T | 378 | ms | [facility] | | | INTERVAL | | | | | + + + + + + | Q-T | 408 | ms | [facility] | | | INTERVAL | | | | | | (CORRECTED) | | | | | + + + + + + | P WAVE AXIS | 74 | degrees | [facility] | | + + + + + + | QRS AXIS | -67 | degrees | [facility] | | + + + + + + | T AXIS | 75 | degrees | [facility] | | + + + + + + | INTERPRETAT | Sinus rhythm with | | [facility] | | | ION TEXT | Premature atrial | | | | | | complexesIncomplete | | | | | | right bundle branch | | | | | | blockLeft anterior | | | | | | fascicular blockSeptal | | | | | | infarct , age | | | | | | undeterminedAbnormal ECG | | | | | | Confirmed by HANANE | | | | | | RATNA RODRIGUEZ ([id number]) on | | | | | | 03/21/2020 6:15:50 PM | | | | + + + + + + + + | Specimen | + + | | + + + + + | Narrative | Performed At | + + + | | | + + + + +---------+ + + | Performing | Address | City/State/Zipcode | Phone Number | | Organization | | | | + +---------+ + + | [facility] | | | | + +---------+ + + TSH (03/21/2020 4:21 AM PDT) + + + + + + | Component | Value | Ref Range | Performed | Pathologist | | | | | At | Signature | + + + + + + | TSH | 0.130 (L)Comment: | 0.450 - 5.100 | [facility] | | | | Testing performed at | uIU/mL | LABORATORY | | | | [facility], [address] | | | | | | [place], [place] | | | | | | [address] | | | | + + + + + + + + | Specimen | + + | | + + + + + + + | Performing | Address | City/State/Zipcode | Phone Number | | Organization | | | | + + + + + | [facility] | [address] | [place] [address] | [phone] | + + + + + Lipid Panel (03/21/2020 4:21 AM PDT) + + + + + + | Component | Value | Ref Range | Performed | Pathologist | | | | | At | Signature | + + + + + + | Cholesterol | 124 | <200 mg/dL | [facility] | | | | | | LABORATORY | | + + + + + + | Triglycerid | 121 | <150 mg/dL | [facility] | | | es | | | LABORATORY | | + + + + + + | HDL | 43 | >40 mg/dL | [facility] | | | | | | LABORATORY | | + + + + + + | LDL, | 57Comment: Testing | <100 mg/dL | [facility] | | | Calculated | performed at [facility], [address] | | LABORATORY | | | | [address], | | | | | | [place] [address] | | | | + + + + + + + + | Specimen | + + | Blood | + + + + + + + | Performing | Address | City/State/Zipcode | Phone Number | | Organization | | | | + + + + + | [facility] | [address] | [place] [address] | [phone] | + + + + + Adelaideime INR (03/21/2020 4:21 AM PDT) + + + + + + | Component | Value | Ref Range | Performed | Pathologist | | | | | At | Signature | + + + + + + | INR | 1.0Comment: REFERENCE | | [facility] | | | | RANGE:0.9 - 1.2 | | LABORATORY | | | | NON-ANTICOAGULATED2.0 | | | | | | - 3.0 ALL OTHER | | | | | | THERAPEUTIC | | | | | | INDICATIONS2.5 - 3.5 | | | | | | MECHANICAL HEART VALVES, | | | | | | RECURRENT OR SYSTEMIC | | | | | | EMBOLISMTesting | | | | | | performed at [facility];[address] | | | | | [address];[place], [place] | | | | | | [address] | | | | + + + + + + + + | Specimen | + + | Blood | + + + + + + + | Performing | Address | City/State/Zipcode | Phone Number | | Organization | | | | + + + + + | [facility] | [address] | [place] [address] | [phone] | + + + + + Magnesium (03/21/2020 4:21 AM PDT) + + + + + + | Component | Value | Ref Range | Performed | Pathologist | | | | | At | Signature | + + + + + + | Magnesium | 2.0Comment: Testing | 1.7 - 2.4 mg/dL | [facility] | | | | performed at [facility];[address] | | LABORATORY | | | | [address];[place] | | | | | | [address] | | | | + + + + + + + + | Specimen | + + | Blood | + + + + + + + | Performing | Address | City/State/Zipcode | Phone Number | | Organization | | | | + + + + + | [facility] | [address] | [place] [address] | [phone] | + + + + + CBC with Differential (03/21/2020 4:21 AM PDT) + + + + + + | Component | Value | Ref Range | Performed | Pathologist | | | | | At | Signature | + + + + + + | WBC | 8.16 | 3.80 - 11.00 | [facility] | | | | | K/uL | LABORATORY | | + + + + + + | Red Blood | 4.30 | 3.70 - 5.10 | [facility] | | | Cells | | M/uL | LABORATORY | | + + + + + + | Hemoglobin | 12.6 | 11.3 - 15.5 | [facility] | | | | | g/dL | LABORATORY | | + + + + + + | Hematocrit | 39.5 | 34.0 - 46.0 % | [facility] | | | | | | LABORATORY | | + + + + + + | MCV | 91.9 | 80.0 - 100.0 fl | [facility] | | | | | | LABORATORY | | + + + + + + | MCH | 29.3 | 27.0 - 34.0 pg | [facility] | | | | | | LABORATORY | | + + + + + + | MCHC | 31.9 (L) | 32.0 - 35.5 | [facility] | | | | | g/dL | LABORATORY | | + + + + + + | RDW-SD | 45.6 | 37 - 53 fl | [facility] | | | | | | LABORATORY | | + + + + + + | Platelet | 185 | 150 - 400 K/uL | [facility] | | | Count | | | LABORATORY | | + + + + + + | MPV | 12.0Comment: NO NORMAL | fl | [facility] | | | | RANGE ESTABLISHED | | LABORATORY | | + + + + + + | Diff Type | AUTOMATED | | [facility] | | | | | | LABORATORY | | + + + + + + | % nRBC | 0.0 | 0 /100WBC | [facility] | | | | | | LABORATORY | | + + + + + + | % | 71.70 | % | [facility] | | | Neutrophils | | | LABORATORY | | + + + + + + | IMMATURE | 0.50 | % | [facility] | | | GRANULOCYTE | | | LABORATORY | | + + + + + + | % | 15.80 | % | [facility] | | | Lymphocytes | | | LABORATORY | | + + + + + + | Monocyte % | 10.70 | % | [facility] | | | | | | LABORATORY | | + + + + + + | Eosinophils | 1.10 | % | [facility] | | | % | | | LABORATORY | | + + + + + + | Basophils % | 0.20 | % | [facility] | | | | | | LABORATORY | | + + + + + + | Neutrophils | 5.85 | 1.90 - 7.40 | [facility] | | | , Absolute | | K/uL | LABORATORY | | + + + + + + | IMMATURE | 0.04Comment: NOTE NEW | 0.00 - 0.07 | [facility] | | | GRANS AB | REFERENCE RANGE | K/uL | LABORATORY | | + + + + + + | Absolute | 1.29 | 1.00 - 3.90 | [facility] | | | Lymphocytes | | K/uL | LABORATORY | | + + + + + + | Absolute | 0.87 (H) | 0.00 - 0.80 | [facility] | | | Monocytes | | K/uL | LABORATORY | | + + + + + + | Eosinophils | 0.09 | 0.00 - 0.50 | [facility] | | | , Absolute | | K/uL | LABORATORY | | + + + + + + | Basophils, | 0.02Comment: Testing | 0.00 - 0.10 | [facility] | | | Absolute | performed at [facility];[address] | [address] | LABORATORY | | | | [address];[place], [place] | | | | | | [address] | | | | + + + + + + + + | Specimen | + + | Blood | + + + + + + + | Performing | Address | City/State/Zipcode | Phone Number | | Organization | | | | + + + + + | [facility] | [address] | [place] [address] | [phone] | + + + + + Basic Metabolic Panel (03/21/2020 4:21 AM PDT) + + + + + + | Component | Value | Ref Range | Performed | Pathologist | | | | | At | Signature | + + + + + + | Na | 142 | 135 - 145 | [facility] | | | | | mmol/L | LABORATORY | | + + + + + + | K | 3.7 | 3.5 - 4.9 | [facility] | | | | | mmol/L | LABORATORY | | + + + + + + | Cl | 110 (H) | 99 - 109 mmol/L | [facility] | | | | | | LABORATORY | | + + + + + + | CO2 | 26 | 23 - 32 mmol/L | [facility] | | | | | | LABORATORY | | + + + + + + | Anion Gap | 10 | 5 - 20 mmol/L | [facility] | | | | | | LABORATORY | | + + + + + + | Glucose | 76 | 65 - 99 mg/dL | [facility] | | | | | | LABORATORY | | + + + + + + | BUN | 12 | 8 - 25 mg/dL | [facility] | | | | | | LABORATORY | | + + + + + + | Creatinine | 0.70 | 0.50 - 1.00 | [facility] | | | | | mg/dL | LABORATORY | | + + + + + + | BUN/Creatin | 17 | | [facility] | | | ine Ratio | | | LABORATORY | | + + + + + + | Calcium | 8.7 | 8.5 - 10.5 | [facility] | | | | | mg/dL | LABORATORY | | + + + + + + | Estimated | >60Comment: GFR <60: | >60 | [facility] | | | GFR | CHRONIC KIDNEY DISEASE, | mL/min/1.73m2 | LABORATORY | | | | IF FOUND OVER A 3 MONTH | | | | | | PERIOD.GFR <15: KIDNEY | | | | | | FAILURE.FOR | | | | | | AMERICANS, MULTIPLY THE | | | | | | CALCULATED GFR BY | | | | | | 1.210.This eGFR is | | | | | | calculated using the | | | | | | MDRD IDMS traceable | | | | | | equation.Testing | | | | | | performed at [facility], [address] | | | | | | [facility], | | | | | | [place] [address] | | | | + + + + + + + + | Specimen | + + | Blood | + + + + + + + | Performing | Address | City/State/Zipcode | Phone Number | | Organization | | | | + + + + + | [facility] | [address] | [place] [address] | [phone] | + + + + + MRI Brain Wo MRA Head Wo (03/20/2020 11:06 PM PDT) + + | Specimen | + + | | + + + + + | Impressions | Performed At | + + + | 1. 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 2. No acute intracranial hemorrhage, cerebral edema | | | pathological mass effect. Other chronic intracranial findings as | | | described above. 3. No flow limiting intracranial arterial stenosis | | | or aneurysm. Final Report Signed by: Jaclyn Javier, | | | Jessica Sign Date/Time: 03/21/2020 12:26 AM | | + + + + + + | Narrative | Performed At | + + + | MRI BRAIN WITHOUT CONTRAST; MRA BRAIN WITHOUT CONTRAST | [facility] | | CLINICAL INFORMATION: Headache and dizziness. COMPARISON: None | | | PROCEDURE: MRI Brain: Sagittal T1, axial FLAIR, axial T2, axial | | | T1, axial gradient susceptibility, coronal T2, axial DWI. MRA | | | Brain: 3-D [id number] MRA with MIP reformations. FINDINGS: | | | MRI Brain: Brain: Few scattered small areas of restricted diffusion | | | in the watershed zones of the bilateral AVERY/MCA and MCA/ULTRASONOGRAPHER | | | territories. Few tiny punctate infarcts in the right cerebellum. | | | No evidence of acute hemorrhage. No midline shift. Basal | | | cisterns are patent. Mild diffuse age related volume loss and few | | | FLAIR hyperintense foci in the periventricular subcortical white | | | matter likely sequelae of chronic microvascular ischemic gliosis. | | | Ventricles and extra-axial fluid spaces: Normal. Sella, | | | suprasellar cistern, and orbits: No sellar suprasellar mass. Evidence | | | of cataract surgery on the left side. No acute orbital | | | abnormality. Calvarium and extracranial soft tissues: Normal. | | | Paranasal sinuses and mastoid air cells: Normal. MRA Brain: | | | Intracranial segments of the internal carotid arteries: Normal. | | | Middle cerebral arteries and major MCA branch vessels: Normal. | | | Anterior cerebral arteries and anterior communicating artery: Normal. | | | Intracranial segments of the vertebral arteries and basilar | | | artery: Normal. Posterior cerebral arteries: Normal. | | | right ULTRASONOGRAPHER noted. | | + + + + + | Procedure Note | + + | [facility], [id number] - 03/21/2020 12:30 AM PDT | | MRI BRAIN WITHOUT CONTRAST; MRA BRAIN WITHOUT CONTRAST | | | | CLINICAL INFORMATION: | | Headache and dizziness. | | | | COMPARISON: | | None | | | | PROCEDURE: | | MRI Brain: Sagittal T1, axial FLAIR, axial T2, axial T1, axial gradient | | susceptibility, coronal T2, axial DWI. | | | | MRA Brain: 3-D [id number] MRA with MIP reformations. | | | | FINDINGS: | | MRI Brain: | | Brain: Few scattered small areas of restricted diffusion in the | | watershed zones of the bilateral AVERY/MCA and MCA/ULTRASONOGRAPHER territories. Few | | tiny punctate infarcts in the right cerebellum. No evidence of acute | | hemorrhage. No midline shift. Basal cisterns are patent. Mild | | diffuse age related volume loss and few FLAIR hyperintense foci in the | | periventricular subcortical white matter likely sequelae of chronic | | microvascular ischemic gliosis. | | | | Ventricles and extra-axial fluid spaces: Normal. | | | | Sella, suprasellar cistern, and orbits: No sellar suprasellar mass. | | Evidence of cataract surgery on the left side. No acute orbital | | abnormality. | | | | Calvarium and extracranial soft tissues: Normal. | | | | Paranasal sinuses and mastoid air cells: Normal. | | | | MRA Brain: | | Intracranial segments of the internal carotid arteries: Normal. | | | | Middle cerebral arteries and major MCA branch vessels: Normal. | | | | Anterior cerebral arteries and anterior communicating artery: Normal. | | | | Intracranial segments of the vertebral arteries and basilar artery: | | Normal. | | | | Posterior cerebral arteries: Normal. right ULTRASONOGRAPHER noted. | | | | IMPRESSION: | | 1. Few tiny scattered punctate acute infarcts in the watershed zones | | of the bilateral AVERY/MCA and MCA/ULTRASONOGRAPHER territories and few tiny punctate | | infarcts in the right cerebellum likely suggesting embolic infarcts. | | 2. No acute intracranial hemorrhage, cerebral edema pathological mass | | effect. Other chronic intracranial findings as described above. | | 3. No flow limiting intracranial arterial stenosis or aneurysm. | | | | | | | | | | | | Final Report Signed by: Jaclyn Javier, Jessica | | Sign Date/Time: 03/21/2020 12:26 AM | + + + +---------+ + + | Performing | Address | City/State/Zipcode | Phone Number | | Organization | | | | + +---------+ + + | [facility] | | | | + +---------+ + + POC Glucose (03/20/2020 10:18 PM PDT) + + + + + + | Component | Value | Ref Range | Performed | Pathologist | | | | | At | Signature | + + + + + + | Glucose, | 123 (H)Comment: Testing | 65 - 99 mg/dL | [facility] | | | POC | performed at [facility] [place] [place];[address] | | LABORATORY | | | | [address];[place] | | | | | | [id number] | | | | + + + + + + + + | Specimen | + + | | + + + + + + + | Performing | Address | City/State/Zipcode | Phone Number | | Organization | | | | + + + + + | [facility] | [address] | [place] [address] | [phone] | + + + + + documented in this encounter Visit Diagnoses + + | Diagnosis | + + | Acute CVA (cerebrovascular accident) (HCC) - Primary | + + | High blood pressure Unspecified essential hypertension | + + | High cholesterol Pure hypercholesterolemia | + + | Arthritis Arthropathy, unspecified, site unspecified | + + | Hypothyroidism Unspecified hypothyroidism | + + | Stenosis of right carotid artery Occlusion and stenosis of carotid artery without | | mention of cerebral infarction | + + documented in this encounter Administered Medications + +--------+ +--------+------+------+ | Medication Order | MAR | Action | Dose | Rate | Site | | | Action | Date | | | | + +--------+ +--------+------+------+ | aspirin EC tablet 325 mg 325 | Given | 03/21/20 | 325 mg | | | | mg, Oral, DAILY, First dose on | | 20 10:44 | | | | | 03/21/20 at 0900, Do not cut | | AM PDT | | | | | or crush., | | | | | | + +--------+ +--------+------+------+ + +---+ | | | + +---+ | aspirin suppository 300 mg 300 | | | mg, Rectal, DAILY, First dose on | | | 03/21/20 at 0900 | | + +---+ | | | + +---+ + +-------+ +--------+---+---+ | brimonidine-timolol (COMBIGAN) | Given | 03/21/20 | 1 drop | | | | 0.2-0.5% ophthalmic solution 1 | | 20 8:21 | | | | | drop 1 drop, Right Eye, 2 TIMES | | PM PDT | | | | | DAILY, First dose on 03/21/20 | | | | | | | at 0900, To ensure complete | | | | | | | absorption of drops and to | | | | | | | prevent other drops from being | | | | | | | washed out, wait at least 5 | | | | | | | minutes in between administering | | | | | | | different eye drops., | | | | | | + +-------+ +--------+---+---+ +-------+ +--------+---+---+ | Given | 03/21/20 | 1 drop | | | | | 20 10:45 | | | | | | AM PDT | | | | +-------+ +--------+---+---+ +---+---+ | | | +---+---+ + +-------+ +--------+---+---+ | cycloSPORINE (RESTASIS) 0.05% | Given | 03/21/20 | 1 drop | | | | ophthalmic emulsion 1 drop 1 | | 20 8:23 | | | | | drop, Both Eyes, 2 TIMES DAILY, | | PM PDT | | | | | First dose on 03/21/20 at | | | | | | | 0900, To ensure complete | | | | | | | absorption of drops and to | | | | | | | prevent other drops from being | | | | | | | washed out, wait at least 5 | | | | | | | minutes in between administering | | | | | | | different eye drops. Hazardous: | | | | | | | Use appropriate handling | | | | | | | precautions., | | | | | | + +-------+ +--------+---+---+ +-------+ +--------+---+---+ | Given | 03/21/20 | 1 drop | | | | | 20 10:45 | | | | | | AM PDT | | | | +-------+ +--------+---+---+ +---+---+ | | | +---+---+ + +-------+ +---------+---+---+ | digoxin (LANOXIN) tablet 125 | Given | 03/21/20 | 125 mcg | | | | mcg 125 mcg, Oral, DAILY, First | | 20 10:44 | | | | | dose on 03/21/20 at 0900 | | AM PDT | | | | + +-------+ +---------+---+---+ +---+---+ | | | +---+---+ + +-------+ +--------+---+---+ | latanoprost (XALATAN) 0.005% | Given | 03/21/20 | 1 drop | | | | ophthalmic solution 1 drop 1 | | 20 8:19 | | | | | drop, Right Eye, NIGHTLY, First | | PM PDT | | | | | dose on 03/21/20 at 2100, | | | | | | | Formulary substitution for | | | | | | | Travoprost. To ensure complete | | | | | | | absorption of drops and to | | | | | | | prevent other drops from being | | | | | | | washed out, wait at least 5 | | | | | | | minutes in between administering | | | | | | | different eye drops., | | | | | | + +-------+ +--------+---+---+ +---+---+ | | | +---+---+ + +-------+ +--------+---+---+ | levothyroxine (SYNTHROID) | Given | 03/22/20 | 75 mcg | | | | tablet 75 mcg 75 mcg, Oral, | | 20 7:06 | | | | | DAILY BEFORE BREAKFAST, First | | AM PDT | | | | | dose (after last modification) on | | | | | | | 03/22/20 at 0600, Give before | | | | | | | breakfast., | | | | | | + +-------+ +--------+---+---+ +---+---+ | | | +---+---+ + +-------+ +-------+---+---+ | pravastatin (PRAVACHOL) tablet | Given | 03/21/20 | 80 mg | | | | 80 mg 80 mg, Oral, DAILY, First | | 20 8:23 | | | | | dose on 03/21/20 at 0900 | | PM PDT | | | | + +-------+ +-------+---+---+ +---+---+ | | | +---+---+ +---+ | | +---+ + +--------+ +---------+------+------+ | Medication Order | MAR | Action | Dose | Rate | Site | | | Action | Date | | | | + +--------+ +---------+------+------+ | levothyroxine (SYNTHROID) | Given | 03/21/20 | 100 mcg | | | | tablet 100 mcg 100 mcg, Oral, | | 20 6:17 | | | | | DAILY BEFORE BREAKFAST, First | | AM PDT | | | | | dose on 03/21/20 at 0600, Give | | | | | | | before breakfast., | | | | | | + +--------+ +---------+------+------+ +---+---+ | | | +---+---+ documented in this encounter Additional Health Concerns + + + + + | Infection | Onset Date | Last Indicated | Resolved Time | + + + + + | Rule out COVID-19 | 03/21/2020 | 03/21/2020 | 03/21/2020 6:07 PM | | | | | PDT | + + + + + documented as of this encounter
--- OUTSIDE RECORDS SUMMARY | ~2020-03-20 | XMS | Encounter Summary ---
Demographics + + + | Address | [address] | | | [place] [address] | + + + | Home Phone | | + + + | Preferred Language | Unknown | + + + | Marital Status | | + + + | Caodaism Affiliation | [id number] | + + + | Race | White | + + + | Ethnic Group | Not or | + + + Author + + + | Author | [facility] | | | and [place] | + + + | Organization | [facility] | | [...] Team Providers + +------+ + | [employer] Name | Role | Phone | + +------+ + | Froylan Godinez MD | PCP | | + +------+ + Reason for Visit + +--------+ + | Reason | Onset | Comments | | | Date | | + +--------+ + | Referral | 11/24/ | | | | 2014 | | + +--------+ + Encounter Details +--------+ + + + + | Date | Type | Department | Care Team | Description | +--------+ + + + + | 11/24/ | Telephone | [facility] | Scott Freeman MD | Referral | | 2015 | | NEUROSURGERY [address] | | | | | [address] | [place] [address] | | | | | [place] | [phone] | | | | | [address] | | | | | | [phone] | | | +--------+ + + + [...] Notes Telephone Encounter - [place] - 11/24/2014 3:[address] Freeman: Patient was seen in the ED recently. Please put in a referral for her to complete injections with Dr. Alvarez prior to her Neurosurgical consult on 12/29/14. Referral for injections faxed to Dr. Alvarez's office. Cathie is updated at this time. documented in this encounter Plan of Treatment Not on filedocumented as of this encounter Visit Diagnoses Not on filedocumented in this encounter"
--- OUTSIDE RECORDS SUMMARY | ~2020-03-20 | XMS | Clinical Summary ---
Demographics + + + | Address | [address] | | | [place] [address] | + + + | Home Phone | | + + + | Preferred Language | Unknown | + + + | Marital Status | | + + + | Orthodox Affiliation | 1073 | + + + | Race | White | + + + | Ethnic Group | Not or | + + + Author + + + | Author | [facility] | | | and [place] | + + + | Organization | [facility] | | | [...] Team Providers + +------+ + | Care Washerette Machine Operator Name | Role | Phone | + +------+ + | Danna Colunga | PCP | | | PA | | | + +------+ + Allergies + + + + + + | Active Allergy | Reactions | Severity | Noted | Comments | | | | | Date | | + + + + + + | Allopurinol | Unknown | | 01/22/20 | | | | | | 20 | | + + + + + + | Menthol | Shortness Of Breath | High | 03/20/20 | | | | | | 20 | | + + + + + + | Food | Other (See Comments) | Medium | 05/07/20 | Artifical Sweetner | | | | | 12 | Splenda, stinging | | | | | | mouth, slufffing of | | | | | | the mouth. Diet | | | | | | Drinks | + + + + + + | Atorvastatin | Unknown | | 01/22/20 | | | | | | 20 | | + + + + + + | Fenofibrate | Unknown | | 01/22/20 | | | | | | 20 | | + + + + + + Medications + + + +---------+------+------+-------+ | Medication | Sig | Dispensed | Refills | Star | End | Statu | | | | | | t | Date | s | | | | | | Date | | | + + + +---------+------+------+-------+ | omeprazole | Take 20 mg by mouth | | 0 | | | [facility] | | (PRILOSEC) 20 mg | every morning | | | | | nded | | capsule | (before breakfast). | | | | | | | | | | | | | | + + + +---------+------+------+-------+ | simvastatin | Take 40 mg by mouth | | 0 | | | [facility] | | (ZOCOR) 40 mg tablet | nightly. | | | | | nded | + + + +---------+------+------+-------+ | Cinnamon 500 MG | Take 1,000 mg by | | 0 | | | [facility] | | CAPS | mouth every morning. | | | | | nded | | | | | | | | | + + + +---------+------+------+-------+ | Cholecalciferol | Take 2,000 Units by | | 0 | | | [facility] | | (VITAMIN D3) 2000 | mouth every morning. | | | | | nded | | UNITS CAPS | | | | | | | + + + +---------+------+------+-------+ | | Place 1 drop into | | 0 | | | [facility] | | brimonidine-timolol | the right eye 2 | | | | | nded | | (COMBIGAN) 0.2-0.5% | times daily. | | | | | | | ophthalmic solution | | | | | | | + + + +---------+------+------+-------+ | digoxin (LANOXIN) | Take 125 mcg by | | 0 | | | [facility] | | 125 mcg tablet | mouth Daily. | | | | | nded | + + + +---------+------+------+-------+ | travoprost | Place 1 drop into | | 0 | | | [facility] | | (TRAVATAN) 0.004% | the right eye | | | | | nded | | ophthalmic solution | nightly. | | | | | | + + + +---------+------+------+-------+ | aspirin 325 mg | Take 325 mg by mouth | | 0 | | | [facility] | | tablet | Daily. | | | | | nded | + + + +---------+------+------+-------+ | lisinopril | Take 20 mg by mouth | | 0 | | | [facility] | | (PRINIVIL, ZESTRIL) | Daily. | | | | | nded | | 20 mg tablet | | | | | | | + + + +---------+------+------+-------+ | RESTASIS 0.05 % | instill 1 drop into | | 0 | 07/3 | | [facility] | | ophthalmic emulsion | both eyes twice a | | | 1/20 | | nded | | | day | | | 20 | | | + + + +---------+------+------+-------+ | gabapentin | Take 200 mg by mouth | | 0 | 07/2 | | [facility] | | (NEURONTIN) 100 mg | nightly . | | | 2/20 | | nded | | capsule | | | | 20 | | | + + + +---------+------+------+-------+ | levothyroxine | Take 100 mcg by | | 0 | 07/0 | | [facility] | | (SYNTHROID) 100 mcg | mouth Daily. | | | 2/20 | | nded | | tablet | | | | 20 | | | + + + +---------+------+------+-------+ Active Problems + + + | Problem | Noted Date | + + + | Hypothyroidism | 03/21/2020 | + + + | Stenosis of right carotid artery | 03/21/2020 | + + + | Acute CVA (cerebrovascular accident) | 03/21/2020 | + + + | Degenerative disc disease, lumbar | 12/29/2014 | + + + | Lumbar radiculopathy | 12/29/2014 | + + + | Foraminal stenosis of lumbar region | 12/29/2014 | + + + | Cervical myelopathy | 07/02/2012 | + + + | Cervical stenosis of spinal canal | 07/02/2012 | + + + | Lumbar stenosis | 07/02/2012 | + + + | Facet arthropathy, lumbar | 07/02/2012 | + + + | High blood pressure | | + + + | High cholesterol | | + + + | Acid reflux | | + + + | Arthritis | | + + + | Breast cyst | | + + + Encounters +--------+ + + + + | Date | Type | Specialty | Care Team | Description | +--------+ + + + + | 03/20/ | Hospital | Internal Medicine | Ousmane Apodaca MD | | | 2019 | Encounter | | Ck Carranza DO | | | | | | Tino Birmingham MD | | +--------+ + + + + | 02/19/ | Hospital | Radiology | Jess Marie | Lumbar radiculopathy | | 2019 | Encounter | | LILIANA Carrillo | | | | | | Maglorzata Pulido | | +--------+ + + + + | 01/25/ | Office | Physical Medicine | Jess Marie | Spinal stenosis of | | 2019 | Visit | and Rehabilitation | LILIANA Carrillo | lumbar region, | | | | | | unspecified whether | | | | | | neurogenic | | | | | | claudication present | | | | | | (Primary Dx); | | | | | | Lumbar | | | | | | radiculopathy; Left | | | | | | leg weakness | +--------+ + + + + | 01/21/ | Abstract | Physical Medicine | Provider, | | | 2019 | | and Rehabilitation | MD Carline | | +--------+ + + + + from Last 3 Months Family History + + +------+ + | Medical History | Relation | Name | Comments | + + +------+ + | No known problems | Brother | | | + + +------+ + | No known problems | Child | | | + + +------+ + | No known problems | Child | | | + + +------+ + | No known problems | Father | | | + + +------+ + | Cancer | Maternal | | | | | Aunt | | | + + +------+ + | Cancer | Maternal | | | | | Grandfath | | | | | er | | | + + +------+ + | Malig hyperten | Maternal | | | | | Grandfath | | | | | er | | | + + +------+ + | Cancer | Maternal | | | | | Grandmoth | | | | | er | | | + + +------+ + | Malig hyperten | Maternal | | | | | Grandmoth | | | | | er | | | + + +------+ + | Stroke | Mother | | | + + +------+ + | Malig hyperten | Paternal | | | | | Grandfath | | | | | er | | | + + +------+ + | Malig hyperten | Paternal | | | | | Grandmoth | | | | | er | | | + + +------+ + + +------+ + + | Relation | Name | Status | Comments | + +------+ + + | Brother | | Alive | | + +------+ + + | Child | | Alive | | + +------+ + + | Child | | Alive | | + +------+ + + | Father | | | | | | | (Age | | | | | 94) | | + +------+ + + | Maternal Aunt | | | | + +------+ + + | Maternal Grandfather | | | | + +------+ + + | Maternal Grandmother | | | | + +------+ + + | Mother | | | | | | | (Age | | | | | 91) | | + +------+ + + | Paternal Grandfather | | | | + +------+ + + | Paternal Grandmother | | | | + +------+ + + Social History + +-------+ +--------+------+ [...] on file | | + + + Last Filed Vital Signs + + + [...] | | + + + + + Plan of Treatment + + + + + | Health Maintenance | Due Date | Last | Comments | | | | Done | | + + + + + | Vaccine: | | | | | Dtap/Tdap/Td (1 - | 5 | | | | Tdap) | | | | + + + + + | Vaccine: | | | | | Pneumococcal 65+ (1 | 1 | | | | of 1 - PPSV23) | | | | + + + + + | Vaccine: Zoster (2 | | 04/26/20 | | | of 3) | 7 | 07 | | + + + + + | Adult Annual | | | | | Wellness Visit | 0 | | | + + + + + | Med Mgmt: Ca | | 03/21/20 | | | | 1 | 20 | | + + + + + | Med Mgmt: Cr | | 03/21/20 | | | | 1 | 20 | | + + + + + | Med Mgmt: ECG | | 03/21/20 | | | | 1 | 20 | | + + + + + | Med Mgmt: K | | 03/21/20 | | | | 1 | 20 | | + + + + + | Med Mgmt: Mg | | 03/21/20 | | | | 1 | 20 | | + + + + + | Med Mgmt: TSH | | 03/21/20 | | | | 1 | 20 | | + + + + + | Medication | | 03/21/20 | | | Management | 1 | 20 | | + + + + + | Vaccine: Influenza | Completed | 03/11/20 | | | | | 20, | | | | | 03/14/20 | | | | | 19, | | | | | 03/19/20 | | | | | 18, | | | | | Addition | | | | | al | | | | | history | | | | | exists | | + + + + + Procedures The patient is currently admitted. The [...] section. | + +--------+ + + + from Last 3 Months Results Coronavirus (COVID-19) NAAT (03/21/2020 5:06 PM PDT) + + + + + + | Component | Value | Ref Range | Performed | Pathologist | | | | | At | Signature | + + + + + + | SARS-CoV-2, | NEGATIVEComment: This | NEG | [facility] | | | NAAT | test was [...] | | | | | performed at [facility] | | | | | | [facility];[place], [place] | | | | | | [address] | | | | + + + + + + + + | Specimen | + + | Tissue - Entire | | nasopharynx (body | | structure) | + + + + + + + | Performing | Address | City/State/Zipcode | Phone Number | | Organization | | | | + + + + + | [facility] | [address] | [place] [address] | [phone] | + + + + + ECHO [...] | | | | | RATNA RODRIGUEZ ([id number]) on | | | | | | [...] | | | + +---------+ + + Lipid Panel (03/21/2020 4:21 AM [...] | | | Calculated | performed at [facility], [address] | | LABORATORY | | | | [place], | | | | | | [place] [address] | | | | + + + + + + + + | Specimen | + + | Blood | + + + + + + + | Performing | Address | City/State/Zipcode | Phone Number | | Organization | | | | + + + + + | [facility] | [address] | [place] [address] | [phone] | + + + + + Protime INR (03/21/2020 4:21 AM PDT) + + + + + + | Component | Value | Ref Range | Performed | Pathologist | | | | | At | Signature | + + + + + + | INR | 1.0Comment: REFERENCE | | [facility] | | | | RANGE:0.9 - 1.2 [...] | | | | | performed at [facility];[address];[place] | | | | | | [address] | | | | + + + + + + + + | Specimen | + + | Blood | + + + + + + + | Performing | Address | City/State/Zipcode | Phone Number | | Organization | | | | + + + + + | [facility] | [address] | [place] [address] | [phone] | + + + + + CBC [...] | | | Absolute | performed at [facility];[address] | LABORATORY | | | | [facility];[place], [place] | | | | | | [address] | | | | + + + + + + + + | Specimen | + + | Blood | + + + + + + + | Performing | Address | City/State/Zipcode | Phone Number | | Organization | | | | + + + + + | [facility] | [address] | [place] [address] | [phone] | + + + + + TSH (03/21/2020 4:21 AM PDT) + + + + + + | Component | Value | Ref Range | Performed | Pathologist | | | | | At | Signature | + + + + + + | TSH | 0.130 (L)Comment: | 0.450 - 5.100 | [facility] | | | | Testing performed at | uIU/mL | LABORATORY | | | | TCL, [address] | | | | | | [place] | | | | | | [address] | | | | + + + + + + + + | Specimen | + + | | + + + + + + + | Performing | Address | City/State/Zipcode | Phone Number | | Organization | | | | + + + + + | [facility] | [address] | [place] [address] | [phone] | + + + + + Magnesium (03/21/2020 4:21 AM PDT) + + + + + + | Component | Value | Ref Range | Performed | Pathologist | | | | | At | Signature | + + + + + + | Magnesium | 2.0Comment: Testing | 1.7 - 2.4 mg/dL | [facility] | | | | performed at [facility];[address] | | LABORATORY | | | | [address];[place], [place] | | | | | | [address] | | | | + + + + + + + + | Specimen | + + | Blood | + + + + + + + | Performing | Address | City/State/Zipcode | Phone Number | | Organization | | | | + + + + + | [facility] | [address] | [place] [address] | [phone] | + + + + + Basic [...] | >60Comment: GFR <60: | >60 | [facility] | | | GFR | CHRONIC KIDNEY [...] | | | | | performed at [facility], [address] | | | | | [place], | | | | | | [place] [address] | | | | + + + + + + + + | Specimen | + + | Blood | + + + + + + + | Performing | Address | City/State/Zipcode | Phone Number | | Organization | | | | + + + + + | [facility] | [address] | [place] [address] | [phone] | + + + + + MRI Brain Wo MRA Head Wo (03/20/2020 11:06 PM PDT) + + | Specimen | + + | | + + + + + | Impressions | Performed At | + + + | 1. Few tiny scattered punctate acute infarcts in the watershed | [facility] | | zones of the bilateral AVERY/MCA and MCA/[employer] [employer] territories and few tiny | | | [...] DWI. MRA | | | Brain: 3-D savf-mx-cyfwch MRA with MIP reformations. FINDINGS: | | | MRI Brain: Brain: Few scattered small areas of restricted diffusion | | | in the watershed zones of the bilateral AVERY/MCA and MCA/[facility] [employer] [employer] | | | territories. Few tiny punctate [...] cerebral arteries: Normal. | | | right [facility] [employer] [employer] [employer] noted. | | + + + + + | Procedure Note | + + | Je, [id number] - 03/21/2020 12:30 AM PDT | | [...] | | | | MRA Brain: 3-D gvff-mk-vbzrht MRA with MIP reformations. | | | | FINDINGS: | | MRI Brain: | | Brain: Few scattered small areas of restricted diffusion in the | | watershed zones of the bilateral AVERY/MCA and MCA/[employer] territories. Few | | tiny punctate infarcts [...] | | Posterior cerebral arteries: Normal. right [employer] [employer] noted. | | | | IMPRESSION: | | 1. Few tiny scattered punctate acute infarcts in the watershed zones | | of the bilateral AVERY/MCA and MCA/[employer] territories and few tiny punctate | | [...] | | Final Report Signed by: Jaclyn Javier Sadaf | | Sign Date/Time: 03/21/2020 12:26 AM [...] | | | POC | performed at [facility];[address] | | LABORATORY | | | | [place], [place] | | | | | | [address] | | | | + + + + + + + + | Specimen | + + | | + + + + + + + | Performing | Address | City/State/Zipcode | Phone Number | | Organization | | | | + + + + + | [facility] | [address] | [place] [address] | [phone] | + + + + + [place] MAURICIO Lumbar Sacral Transforaminal (02/20/2020 2:03 [...] | | | + +---------+ + + from Last 3 Months Insurance + +--------+ +--------+ + +--------+ | Payer | Benefi | Subscriber | Effect | Phone | Address | Type | | | t Plan | ID | angel | | | | | | / | | Dates | | | | | | Group | | | | | | + +--------+ +--------+ + +--------+ | MEDICARE | MEDICA | [id number] | 08/24/19 | [phone] | | Medica | | | RE | | 01-Pre | 5 | | re | | | PART A | | sent | | | | | | AND B | | | | | | + +--------+ +--------+ + +--------+ | MEDICARE | MEDICA | [id number] | 08/24/19 | [phone] | | Medica | | | RE | | 01-Pre | 5 | | re | | | PART A | | sent | | | | | | AND B | | | | | | + +--------+ +--------+ + +--------+ | MODA | MODA | [id number] | 08/24/19 | [phone] | [address] | Indemn | | | HEALTH | | 08-Pre | 9 | [id number] | ity | | | MDCR | | sent | | [place], | | | | [place] | | | | [place] [address] | | + +--------+ +--------+ + +--------+ | MODA | MODA | [id number] | 06/25/19 | [phone] | [address] | Indemn | | | HEALTH | | 19-Pre | 9 | [phone] | ity | | | MDCR | | sent | | [place], | | | | [place] | | | | [place] [address] | | + +--------+ +--------+ + +--------+ + +--------+ +--------+ + + | Guarantor Name | Accoun | Relation to | Date | Phone | Billing Address | | | t Type | Patient | of | | | | | | | | | | + +--------+ +--------+ + + | Cathie Sorenson | Person | Self [birth year] | [address] | | [place] | al/Fam | | 1936 | [phone] | [place] | | | [place] | | | [address] (Home) | [address] | + +--------+ +--------+ + + | Cathie Sorenson | Person | Self [birth year] | [address] | [place] | al/Fam | | 1936 | [phone] | [place] | | | [place] | | | 1 (Home) | [address] | + +--------+ +--------+ + + Advance Directives + + + + + | Type | Date Recorded | Patient | Explanation | | | | Jointer Operator | | + + + + + | Power of | | | | | | | | | + + + + + | Advance | 12/29/2014 9:17 | | | | Directive | AM | | | + + + + + + + + + + | Code Status | Date | Date | Comments | | | Activated | Inactivated | | + + + + + | Full Code | 03/20/2020 | | | | | 8:39 PM | | | + + + + +
--- OUTSIDE RECORDS SUMMARY | ~2020-03-20 | XMS | Encounter Summary ---
Demographics + + + | Address | [address] | | | [place] [address] | + + + | Home Phone | | + + + | Preferred Language | Unknown | + + + | Marital Status | | + + + | Yazidism Affiliation | [id number] | + + + | Race | White | + + + | Ethnic Group | Not or | + + + Author + + + | Author | [facility] | | | and [place] | + + + | Organization | [facility] | | [...] Team Providers + +------+ + | Care Budget Specialist Name | Role | Phone | + +------+ + | Froylan Godinez MD | PCP | | + +------+ + Reason for Visit + + + | Reason | Comments | + + + | Back Pain | | + + + Encounter Details +--------+ + + + + | Date | Type | Department | Care Team | Description | +--------+ + + + + | 11/24/ | Emergency | [facility] | Neftaly Rome Cristiana, | Low back pain | | 2015 | | [facility] | MD [address] | without sciatica, | | | | CENTER [address] | [place], [place] | unspecified back | | | | [place], [place] | [address] | pain laterality | | | | [address] | | (Primary Dx) | | | | [phone] | | | +--------+ + + + [...] + + + | Blood Pressure | 170/63 | 11/24/2014 12:45 PM | | | | | PDT | | + + + + + | Pulse | 77 | 11/24/2014 12:45 PM | | | | | PDT | | + + + + + | Temperature | 36.7 C (98.1 F) | 11/24/2014 12:45 PM | | | | | PDT | | + + + + + | Respiratory Rate | 18 | 11/24/2014 12:45 PM | | | | | PDT | | + + + + + | Oxygen Saturation | 95% | 11/24/2014 12:45 PM | | | | | PDT | | + + + + + | Inhaled Oxygen | - | - | | | Concentration | | | | + + + + + | Weight | 73.9 kg (163 lb) | 11/24/2014 12:45 PM | | | | | PDT | | + + + + + | Height | 157.5 cm (5' 2") | 11/24/2014 12:45 PM | | | | | PDT | | + + + + + | Body Mass Index | 29.81 | 11/24/2014 12:45 PM | | | | | PDT | | + + + + + documented in this encounter Discharge Instructions AttachmentsThe following attachments cannot be sent through Care Everywhere.SCIATICA (ENGLI )BACK PAIN (ACUTE OR CHRONIC) (TURKMEN)documented in this encounter Medications at Time of [...] + + + +---------+ + + | methylPREDNISolone | Follow package | 21 | 0 | 11/25/19 | | | (MEDROL DOSEPAK) 4 | directions. | tablet | | 15 | 5 | | mg tablet | | | | | [...] + + documented as of this encounter ED Notes Neftaly Rome MD - 11/24/2014 1:34 PM PDTFormatting of this note might be different fro m the original. eMERGENCY dEPARTMENT eNCOUnter CHIEF COMPLAINT Chief Complaint Patient presents with Back Pain HPI Cathie Sorenson is a 79 y.o. female who presents with chronic low back pain. She had an MR I earlier this month. She is awaiting to see Dr Freeman and Dr. Alvarez and has appointments in December but was hoping not to wait so long so she came to the ER. She's had no bowel or bl adder incontinence. She's had no paresthesias, weakness, or other new or different symptoms . She finished a steroid taper about a month ago and said it helped. She takes hydrocodone and it helps a little bit. She drove here from [place] hoping to get in and see Dr. Pastor . She has not had a fever, or other associated symptoms. She has no history of trauma or oth er cause of her pain. PAST MEDICAL HISTORY Past Medical History Diagnosis Date High blood pressure High cholesterol Acid reflux Arthritis Breast cyst Gout Thyroid disease Thyroidectomy Cancer (HCC) SURGICAL HISTORY Past Surgical History Procedure Laterality Date Ovary surgery December 1965 2/3 of each ovary Breast lump removal 03/1996 and 04/2001 Left Side both times Thyroid surgery 10/1997 Removed Cervical polyp removal 04/2002 Laparoscopy 06/2002 Polyp removal Colonoscopy 01/2006 1 cancer, 1 cell, 2 clear Hysterectomy Appendectomy Eye surgery CURRENT MEDICATIONS Previous Medications BRIMONIDINE-TIMOLOL (COMBIGAN) 0.2-0.5% OPHTHALMIC SOLUTION Place 1 drop into the right eye 2 times daily. CHOLECALCIFEROL (VITAMIN D3) 2000 UNITS CAPS Take 2,000 Units by mouth every morning. CINNAMON 500 MG CAPS Take 1,000 mg by mouth every morning. DIGOXIN (LANOXIN) 125 MCG TABLET Take 125 mcg by mouth Daily. HYDROCODONE-ACETAMINOPHEN (NORCO) 5-325 MG PER TABLET Take 1 tablet by mouth every 6 ho urs as needed for Pain. LEVOTHYROXINE SODIUM 112 MCG CAPS Take 100 mcg by mouth every morning. OMEPRAZOLE (PRILOSEC) 20 MG CAPSULE Take 20 mg by mouth every morning (before breakfast ). POTASSIUM CHLORIDE (KLOR-CON 10) 10 MEQ CR TABLET Take 10 mEq by mouth Daily. SIMVASTATIN (ZOCOR) 40 MG TABLET Take 40 mg by mouth nightly. TRAVOPROST (TRAVATAN) 0.004% OPHTHALMIC SOLUTION Place 1 drop into the right eye nightl y. TRIAMTERENE-HYDROCHLOROTHIAZIDE (MAXZIDE-25) 37.5-25 MG PER TABLET Take 1 tablet by Daily. ALLERGIES Allergies Allergen Reactions Food Other (See Comments) Artifical Sweetner Splenda, stinging mouth, slufffing of the mouth. Diet Drinks FAMILY HISTORY Family History Problem Relation Age of Onset Stroke Mother Cancer Maternal Aunt Cancer Maternal Grandmother Cancer Maternal Grandfather SOCIAL HISTORY History Social History Marital Status: Spouse Name: N/A Number of Children: N/A Years of Education: N/A Social History Main Topics Smoking status: Never Smoker Smokeless tobacco: Never Used Alcohol Use: Yes Comment: Rarely Drug Use: No Sexual Activity: None Other Topics Concern None Social History Narrative REVIEW OF SYSTEMS All systems reviewed and negative except as noted on HPI and/or limited by patient conditio n PHYSICAL EXAM VITAL SIGNS: Temp: 36.7 C (98.1 F) Pulse: 77 Resp: 18 SpO2: 95 % BP: 170/63 mmHg Constitutional: Well developed, Well nourished, No acute distress, Non-toxic appearance. HENT: Normocephalic, Atraumatic, Oropharynx moist, No oral exudates, Nose normal. Neck- No rmal range of motion, No tenderness, Supple, No stridor. Eyes: PERRL, EOMI, Conjunctiva normal, No discharge. Respiratory: Normal breath sounds, No respiratory distress, No wheezing, No chest tenderne ss. Cardiovascular: Normal heart rate, Normal rhythm, No murmurs, No rubs, No gallops. GI: nondistended, nontender : not done Musculoskeletal: Intact distal pulses, No edema, strength is 5 out of 5 in both lower extr emities and symmetric, sensation tested and intact as well ,Integument: Warm, Dry, No erythema, No rash. EKG Not done RADIOLOGY No results found. ED COURSE & MEDICAL DECISION MAKING Last Set of Vital Signs: Temp: 36.7 C (98.1 F) Pulse: 77 Resp: 18 SpO2: 95 % BP: 170/63 mmHg Pertinent Labs, Nurses Note, & Imaging studies reviewed. (See chart for details) This is a 79-year-old female with chronic low back pain. She was put on another steroid ta per. She is given oxycodone for pain. She has no evidence of acute cauda equina syndrome. I reviewed her MRI. There is nothing that requires emergent surgical intervention at this time. I have referred her on to Dr. Freeman and to Dr. Pastor. The nurses calling Dr. Pastor to see if she can get in earlier. She is comfortable with the plan. FINAL IMPRESSION Chronic low back pain LABS FROM THIS VISIT OR MOST RECENT ER VISIT: No results found for this or any previous visit. Follow-up Information Follow up with Froylan Godinez. Specialty: Internal Medicine Contact information: [address] [place] [address] Follow up with Scott Freeman MD. Specialty: Neurosurgery Contact information: [address], [address] [facility] [address] Follow up with Darrel Alvarez MD. Specialty: Physical Medicine and Rehabilitation Contact information: [address] [facility] [address] New Prescriptions METHYLPREDNISOLONE (MEDROL DOSEPAK) 4 MG TABLET Follow package directions. OXYCODONE (ROXICODONE) 5 MG TABLET Take 0.5-1 tablets by mouth every 4 hours as needed for Pain. Discharge References/Attachments SCIATICA (TURKMEN) BACK PAIN (ACUTE OR CHRONIC) (TURKMEN) Neftaly Rome MD 11/24/14 1337 document ed in this encounter Miscellaneous Notes ED Triage Notes - Roseline Sheldon RN - 11/24/2014 12:43 PM PDTC/O right sided low back p ain radiating into leg since August. Pt states she has a history of sciatic nerve pain that w as relieved by injections by Dr. Alvarez over 2 years ago but she cannot see him until af ter she sees Dr. Freeman in December. 12: 45 PM PDTdocumented in this encounter Plan of Treatment Not on filedocumented as of this encounter Visit Diagnoses + + | Diagnosis | + + | Low back pain without sciatica, unspecified back pain laterality - Primary | + + documented in this encounter
--- OUTSIDE RECORDS SUMMARY | ~2020-03-20 | XMS | Encounter Summary ---
Demographics + + + | Address | [address] | | | [place] [address] | + + + | Home Phone [...] + + + | Author | [facility] | | | and [place] | + + + | Organization | [facility] | | | [...] Team Providers + +------+ + | Care Experimental Plastics Fabricator Name | Role | Phone | + +------+ + | Froylan Godinez MD | PCP | | + +------+ + Reason for Visit + + + | Reason | Comments | + + + | Neck Pain | | + + + Encounter Details +--------+---------+ + + + | Date | Type | Department | Care Team | Description | +--------+---------+ + + + | 08/13/ | Office | [facility] | Fred Oden | Lumbar stenosis | | 2012 | Visit | NEUROSURGERY [address] | [address] | (Primary Dx); Facet | | | | [address] [place], [place] | arthropathy, lumbar; | | | | [place] | [address] | Cervical stenosis | | | | [address] | | of spinal canal | | | | [phone] | | | +--------+---------+ + + + Social History [...] + + + | Blood Pressure | 124/67 | 08/13/2012 11:45 AM | | | | | PST | | + + + + + | Pulse | 89 | 08/13/2012 11:45 AM | | | | | PST | | + + + + + | Temperature | - | - | | + + + + + | Respiratory Rate | 16 | 08/13/2012 11:45 AM | | | | | PST | | + + + + + | Oxygen Saturation | - | - | | + + + + + | Inhaled Oxygen | - | - | | | Concentration | | | | + + + + + | Weight | 78.9 kg (174 lb) | 08/13/2012 11:45 AM | | | | | PST | | + + + + + | Height | 157.5 cm (5' 2") | 08/13/2012 11:45 AM | | | | | PST | | + + + + + | Body Mass Index | 31.83 | 08/13/2012 11:45 AM | | | | | PST | | + + + + + documented in this encounter Patient Instructions Patient Instructions Fred Oden PA-C - 08/13/2012 12:09 PM PSTToday he told me w ere doing very well with your physical therapy. He did continue to have some problems with your arms on both sides. But she also told me that these are improving at this time with he r current physical therapy. At this time we'll plan to see you back in 6 months as long as she continued to do well and progress. If you are having any continued problems I would lik e to see you again sooner. Continue with routine followup with your primary care provider. If you have any questions please feel free to call us documented in this encounter Progress Notes Fred Oden PA-C - 08/13/2012 12:11 PM PSTFormatting of this note might be differ ent from the original. ALBER Donaldson [address] [facility] [address] [place] [address] FAX: NEUROSURGERY HISTORY AND PHYSICAL EXAMINATION CHIEF COMPLAINT: Chief Complaint Patient presents with Neck Pain HISTORY OF PRESENT ILLNESS: The patient is a 76 y.o. female with the complaint of back and leg pain as well as neck and arm pain. Patient has had MRIs of both her neck as well as he r lumbar spine both of these it shows significant degenerative changes. The patient has done very well with physical therapy in fact her left leg discomfort is abo ut 90% better. She states that her right leg discomfort is at least 50% better. She's had h ad a total of 3 steroid injections in her back. She still has numbness in both of her legs they are located to the lateral portion of both her left leg and her right leg, mostly from the knee down. Her numbness/paresthesias seem to come and go. She also had a hypersensitiv ity to the dorsum of her left foot which is significantly improved since physical therapy. The patient continues to notice some deltoid weakness as well as upper arm discomfort bilat erally his have improved however with her current round of physical therapy. She has not fox d any particular balance issues. She has not had any bowel or bladder control issues. PAST MEDICAL HISTORY: Past Medical [...] per tablet Take 1 tablet by Daily. simvastatin (ZOCOR) 40 mg tablet Take [...] no rheumatoid arthritis. PHYSICAL EXAMINATION: Blood pressure 124/67, pulse 89, resp. rate 16, height 1.575 m (5' 2"), weight 78.926 [...] has no apparent deficits with short or retirement memory. CRANIAL NERVES: II: Acuity is intact. [...] Intrinsics 5 5 Ulnar Intrinsics 5 5 Processing Mgr Strength 5 5 Hip Flexion 5 5 [...] the hips is negative bilaterally. RADIOGRAPHIC REVIEW: The patient has not had any new x-rays or MRIs to review ASSESSMENT: NEUROSURGICAL DIAGNOSES: Encounter Diagnoses Name Primary? Lumbar stenosis Yes Facet arthropathy, lumbar Cervical stenosis of spinal canal GENERAL DIAGNOSES: Past Medical History Diagnosis Date High blood pressure High cholesterol Acid reflux Arthritis Breast cyst PLAN: The patient is clearly pleased that she is improved with her lumbar symptoms . Also h er neck and arm symptoms have continued to improve. She would like to continue to see impro vement and she is planning to continue with physical therapy at this time Because the patient is doing well we will plan to see her back in approximately 6 months if she's having increasing problems we would see her back at any time. Over the next 6 months I told her I expect her to continue to improve with her exercises and physical therapy. Cliff lechuga understands that she will have some good days and some bad days but overall she should con tinue to improve. During the spring and summer months she is very active in her garden. She also does a lot of ricardo. I expect that she should be able to do this. She will continue to followup with her primary care provider and call us if she has any pro blems questions or concerns would be happy to work her in sooner.. ELECTRONICALLY SIGNED BY: ALBER Donaldson, 08/13/2012 12:12 documented in this encounter Plan of Treatment Not on filedocumented as of this encounter Visit Diagnoses + + | Diagnosis | + + | Lumbar stenosis - Primary Spinal stenosis, lumbar region, without neurogenic | | claudication | + + | Facet arthropathy, lumbar Lumbosacral spondylosis without myelopathy | + + | Cervical stenosis of spinal canal Spinal stenosis in cervical region | + + documented in this encounter
--- OUTSIDE RECORDS SUMMARY | ~2020-03-20 | XMS | Encounter Summary ---
Demographics + + + | Address | [address] | | | [place] [address] | + + + | Home Phone | | + + + | Preferred Language | Unknown | + + + | Marital Status | | + + + | Christianity Affiliation | 1073 | + + + | Race | White | + + + | Ethnic Group | Not or | + + + Author + + + | Author | [facility] | | | and [place] | + + + | Organization | [facility] | | [...] Team Providers + +------+ + | Care Reinforcing Steel Machine Operator Name | Role | Phone | + +------+ + | Froylan Godinez MD | PCP | | + +------+ + Encounter Details +--------+ + + + + | Date | Type | Department | Care Team | Description | +--------+ + + + + | 10/21/ | Orders Only | [facility] | Scott Freeman MD | Back pain, | | 2015 | | NEUROSURGERY [address] | [address] | unspecified location | | | | [address] | [place] [address] | (Primary Dx) | | | | [place] | [phone] | | | | | [address] | | | | | | [phone] | | | +--------+ + + + [...] of this encounter Results XR Lumbar Spine 4 [...] spine 10/07/2014 and x-ray lumbar spine | [facility] | | 09/23/2014 FINDINGS: Five lumbar type [...] ST. | [address] | [place] | [phone] | | [facility] | | [address] | | | - IMAGING | | | | + + + + + documented in this encounter Visit Diagnoses + + | Diagnosis | + + | Back pain, unspecified location - Primary | + + documented in this encounter"
--- NOTE | 2020-03-20 13:21 | EKG ---
[facility] [address] [place], [place] [address] Signed Sinus rhythm with 1st degree AV block Left axis deviation Incomplete right bundle branch block Abnormal ECG No previous ECGs available Confirmed by JESSICA MAYORGA MD ([id number]) on 03/20/2020 1:21:40 PM Electronically Signed By: JESSICA MAYORGA MD 03/20/20 1321 PATIENT NAME: KAMLA SARABIA AKILAH Electrocardiogram DATE OF : 35 PHYSICIAN: JESSICA MAYORGA MD REPORT #: [id number] REPORT IS CONFIDENTIAL AND NOT TO BE RELEASED WITHOUT AUTHORIZATION
--- NOTE | 2020-03-21 12:45 | EKG ---
[facility] [address] [place] [address] Signed Supraventricular tachycardia Right superior axis deviation Pulmonary disease pattern Incomplete right bundle branch block Abnormal ECG When compared with ECG of 20-MAR-2020 13:14, MD interval has decreased Vent. rate has increased BY 54 BPM Questionable change in QRS axis ST now depressed in Anterolateral leads Confirmed by JESSICA MAYORGA MD ([id number]) on 03/21/2020 12:45:08 PM Electronically Signed By: JESSICA MAYORGA MD 03/21/20 1245 PATIENT NAME: KAMLA SARABIA Electrocardiogram DATE OF : 35 PHYSICIAN: JESSICA MAYORGA MD REPORT #: [id number] REPORT IS CONFIDENTIAL AND NOT TO BE RELEASED WITHOUT AUTHORIZATION
--- NOTE | 2020-03-21 12:46 | EKG ---
[facility] [address] [facility] [place] [address] Signed Sinus rhythm with 1st degree AV block Incomplete right bundle branch block Nonspecific ST abnormality Abnormal ECG When compared with ECG of 20-MAR-2020 17:08, (Unconfirmed) IA interval has increased Vent. rate has decreased BY 50 BPM Questionable change in QRS axis Confirmed by JESSICA MAYORGA MD ([id number]) on 03/21/2020 12:46:27 PM Electronically Signed By: JESSICA MAYORGA MD 03/21/20 1246 PATIENT NAME: KAMLA SARABIA Electrocardiogram DATE OF : 35 PHYSICIAN: JESSICA MAYORGA MD REPORT #: [id number] REPORT IS CONFIDENTIAL AND NOT TO BE RELEASED WITHOUT AUTHORIZATION
== END ==
LOC: ED 12:22
DX: G45.9 Transient cerebral ischemic attack, unspecified (principal); I47.1 Supraventricular tachycardia; I10 Essential (primary) hypertension; Z85.3 Personal history of malignant neoplasm of breast; E78.5 Hyperlipidemia, unspecified; Z88.8 Allergy status to other drugs, medicaments and biological substances; Z79.899 Other long term (current) drug therapy
CPT/HCPCS: 70450; 70496; 70498; 71045; 80053; 80162; 81001; 84484; 85025; 85610; 85730; 93005; 93010; 96360; 99285-25; J7030; Q9967

== ENCOUNTER 2020-07-18 08:52 | Emergency (ER) | payer MEDICARE, OTHER ==
[~2020-07-18] VITALS: Ht 157.5 cm; Wt 63.5 kg
[2020-07-18] MEDS ORDERED: AMLODIPINE BESYL5 MG PO (09:15)
[2020-07-18] MEDS ORDERED: D3-200050 MCG PO (09:16)
[2020-07-18] MEDS ORDERED: ASPIRIN81 MG PO (09:16)
[2020-07-18] MEDS ORDERED: CLOPIDOGREL75 MG PO (09:17)
[2020-07-18] MEDS ORDERED: CINNAMON500 MG PO (09:17)
[2020-07-18] MEDS ORDERED: COMBIGAN EYE DRO5 ML OD (09:17)
[2020-07-18] MEDS ORDERED: PRAVASTATIN SOD80 MG PO (09:18)
== END 2020-07-18 11:52 | disposition home or self-care (01) ==
LOC: ED 08:52
DX: S70.11XA Contusion of right thigh, initial encounter (principal); D64.9 Anemia, unspecified; X58.XXXA Exposure to other specified factors, initial encounter; I10 Essential (primary) hypertension; Z85.3 Personal history of malignant neoplasm of breast; E78.5 Hyperlipidemia, unspecified; Z88.8 Allergy status to other drugs, medicaments and biological substances; Z79.899 Other long term (current) drug therapy; Z79.82 Long term (current) use of aspirin
CPT/HCPCS: 85025; 93971; 99284-25

== ENCOUNTER 2021-12-13 05:58 | Emergency (ER) | payer OTHER, MEDICARE ==
[~2021-12-13] VITALS: Ht 157.5 cm; Wt 68.9 kg
[~2021-12-13 05:58] MED LIST changes: +AMLODIPINE BESYL5 MG PO; +ASPIRIN81 MG PO; +CINNAMON500 MG PO; +CLOPIDOGREL75 MG PO; +COMBIGAN EYE DRO5 ML OD; +D3-200050 MCG PO; +PRAVASTATIN SOD80 MG PO
[2021-12-13] MEDS ORDERED: OMEPRAZOLE20 MG PO (06:17)
[2021-12-13] MEDS ORDERED: LEVOTHYROXINE88 MCG PO (06:17)
== END 2021-12-13 07:05 | disposition home or self-care (01) ==
LOC: ED 05:58
DX: S00.83XA Contusion of other part of head, initial encounter (principal); S80.212A Abrasion, left knee, initial encounter; I10 Essential (primary) hypertension; Z88.8 Allergy status to other drugs, medicaments and biological substances; Z79.899 Other long term (current) drug therapy; W19.XXXA Unspecified fall, initial encounter
CPT/HCPCS: 70450; 90714; A9270

== ENCOUNTER 2022-03-08 10:31 | Emergency (ER) | payer MEDICARE, OTHER ==
[~2022-03-08] VITALS: Ht 157.5 cm; Wt 67.1 kg
[~2022-03-08 10:31] MED LIST changes: +LEVOTHYROXINE88 MCG PO; +OMEPRAZOLE20 MG PO
== END 2022-03-08 11:51 | disposition home or self-care (01) ==
LOC: ED 10:31
DX: S42.255A Nondisplaced fracture of greater tuberosity of left humerus, initial encounter for closed fracture (principal); W18.30XA Fall on same level, unspecified, initial encounter; I10 Essential (primary) hypertension; Z85.3 Personal history of malignant neoplasm of breast; Z88.5 Allergy status to narcotic agent; Z88.8 Allergy status to other drugs, medicaments and biological substances; Z79.899 Other long term (current) drug therapy; Z79.82 Long term (current) use of aspirin
CPT/HCPCS: 73060; 99283-25

== ENCOUNTER 2024-09-22 16:05 | Emergency (ER) | payer MEDICARE, OTHER ==
[~2024-09-22] VITALS: Ht 157.5 cm; Wt 68.5 kg
[2024-09-22] MEDS ORDERED: LEVOTHYROXINE75 MCG PO (20:36)
[2024-09-22] MEDS ORDERED: GABAPENTIN100 MG PO (20:37)
[2024-09-22] MEDS ORDERED: CYCLOSPORINE1 EACH OP (20:38)
[2024-09-22] MEDS ORDERED: BRIMONIDINE-TIMO5 ML OD (20:38)
[2024-09-22] MEDS ORDERED: lisinopriL 20 MG TAB PO ONE (22:00)
[2024-09-22 22:58] LABS: BASOPHILS 0.7 % (0-2); HEMATOCRIT 42.5 % (35.0-50.0); HEMOGLOBIN 14.5 g/dL (12.0-18.0); LYMPHOCYTES 18.1 % (24-44); MCH 29.3 (27-36); MCV 86.2 fl (81-99); MONOCYTES 7.6 % (0-12); NEUTROPHILS 71.6 % (39-80); PLATELET COUNT 186 K/uL (140-440); RBC 4.93 M/ul (4.3-5.7); RDW 14.6 (10.5-15.0)
[2024-09-22 23:15] LABS: ALBUMIN 3.6 g/dL (3.4-5.0); ALBUMIN/GLOBULIN RATIO 0.9 (1.1-2.4); ANION GAP 9.6 (7-21); BILIRUBIN, TOTAL 0.6 mg/dL (0.2-1.0); BUN/CREATININE RATIO 28.57 (6.0-28.6); CALCIUM 9.8 mg/dL (8.5-10.1); CREATININE, SERUM 0.63 mg/dL (0.55-1.02); MAGNESIUM 2.1 mg/dL (1.8-2.4); POTASSIUM 4.6 mmol/L (3.5-5.1); PROTEIN, TOTAL 7.6 g/dL (6.4-8.2)
[2024-09-22 23:45] VITALS: BP 190/75
== END 2024-09-22 23:45 | disposition home or self-care (01) ==
LOC: ED 16:05
PROVIDERS: Internal Medicine
DX: S05.12XA Contusion of eyeball and orbital tissues, left eye, initial encounter (principal); W18.30XA Fall on same level, unspecified, initial encounter; I10 Essential (primary) hypertension; E78.5 Hyperlipidemia, unspecified; Z88.9 Allergy status to unspecified drugs, medicaments and biological substances; Z88.8 Allergy status to other drugs, medicaments and biological substances; Z91.09 Other allergy status, other than to drugs and biological substances
CPT/HCPCS: 36415; 70450; 70486; 72125; 80053; 83735; 84484; 85025; 99284-25